=== PATIENT | male | born 1935 ===

== ENCOUNTER 2017-11-19 08:11 | Inpatient (IN) | payer MEDICARE, MEDICAID ==
[2017-11-19 08:25] VITALS: BMI 19.5
--- NOTE | 2017-11-19 08:32 | C.PDOC ---
History Of Present Illness 82 years old male with PMHx of HIV, Asthma, arthritis, and Pneumonia is BIBA to ED for complaints of shortness of breath associated with cough and chest congestion that began 2 days ago. Patient describes pain as tightness of chest. Patient also reports symptoms worsened today which prompted the ED visit. Denies fever or any other physical complaints. PMD: * Casey Grant Time Seen by Provider: 11/19/17 08:32 Chief Complaint (Nursing): Shortness Of Breath History Per: Patient History/Exam Limitations: no limitations Onset/Duration Of Symptoms: Hrs Current Symptoms Are (Timing): Still Present Quality: Tightness Current Respiratory Medications: See Home Med List Associated Symptoms: denies: Fever, Chills Recent travel outside of the [place]: No Past Medical History Reviewed: Historical Data, Nursing Documentation, Vital Signs Vital Signs: Last Vital Signs Temp 97.8 F 11/19/17 08:25 Pulse 92 H 11/19/17 08:25 Resp 26 H 11/19/17 08:25 BP 143/94 H 11/19/17 08:25 Pulse Ox 96 11/19/17 08:25 - Medical History PMH: Arthritis, Asthma, Emphysema, HIV, HTN (Denies), Pneumonia Surgical History: Endoscopy - [facility] Procedures REPLACE OF L KNEE JT WITH SYNTH SUB, CEMENT, OPEN APPROACH (09/13/17) Family History: States: Unknown Family Hx - Social History Hx Alcohol Use: No Hx Substance Use: No - Immunization History Hx Tetanus Toxoid Vaccination: No Hx Influenza Vaccination: No Hx Pneumococcal Vaccination: Yes Review Of Systems Except As Marked, All Systems Reviewed And Found Negative. Cardiovascular: Positive for: Other (Chest tightness and congestion ) Respiratory: Positive for: Cough, Shortness of Breath Physical Exam - Physical Exam Appears: Non-toxic, No Acute Distress Skin: Normal Color, Warm, Dry, No Rash Head: Atraumatic, Normacephalic Eye(s): bilateral: Normal Inspection, PERRL, EOMI Oral Mucosa: Moist Neck: Supple Chest: Symmetrical, No Tenderness Cardiovascular: Rhythm Regular Respiratory: No Decreased Breath Sounds, No Rales, No Rhonchi, No Wheezing Gastrointestinal/Abdominal: Bowel Sounds (Active), Soft, No Tenderness, No Distention Rectal: Heme Negative Extremity: Normal ROM, No Deformity Extremity: Bilateral: Atraumatic, Normal Color And Temperature, Normal ROM Neurological/Psych: Oriented x3, Normal Speech, Normal Cranial Nerves, Normal Motor, Normal Sensation Gait: Steady ED Course And Treatment - Laboratory Results Result Diagrams: 11/19/17 09:56 11/19/17 09:56 O2 Sat by Pulse Oximetry: 96 (RA) Pulse Ox Interpretation: Normal - Other Rad CXR X-Ray: Viewed By Me, Read By Radiologist Interpretation: Date of service: 11/19/2017. PROCEDURE: CHEST RADIOGRAPH, 1 VIEW. HISTORY: SOB. COMPARISON: None available. FINDINGS: LUNGS: Mild bibasilar atelectasis or scarring. PLEURA: No pneumothorax or pleural fluid seen. CARDIOVASCULAR: Heart size upper limits of normal. Aorta slightly ectatic and uncoiled. OSSEOUS STRUCTURES: Degenerative changes both shoulder girdles right greater than left. Multilevel degenerative spondylosis. VISUALIZED UPPER ABDOMEN: Normal. OTHER FINDINGS: Note made of multiple radiopaque densities seen scattered over the right lateral lower wm thorax and upper abdomen as well as possibly overlying the right paratracheal region and right base of neck or right facial soft tissues. Rule shrapnel on material. IMPRESSION: No active disease. Progress Note: Administered O2 via Nasal cannula. Ordered EKG, blood work, CXR, and urinalysis. Patient c/o difficulty urinating, bolanos ordered. Minimal amt of urine obtained, patient requested to remove Bolanos secondary to discomfort. Patient is not complaining of pressure in the pelvic area. Elevated Ddimer, VQ scan ordered and resulted with high probability for PE. Leucocytosis: broad spectrum antibioticss started. Rectal exam with heme neg brown stool. Heparin started. Case was d/w who accepted patient to [facility] for an admission. Disposition - Disposition Disposition: HOSPITALIZED Disposition Time: 17:27 Condition: FAIR - Clinical Impression Clinical Impression: Pulmonary embolism, Dyspnea, Leucocytosis - PA / VENDING MACHINE ATTENDANT / Resident Statement MD/DO has reviewed & agrees with the documentation as recorded. - Scribe Statement The provider has reviewed the documentation as recorded by the Lida Chu All medical record entries made by the Lida were at my direction and personally dictated by me. I have reviewed the chart and agree that the record accurately reflects my personal performance of the history, physical exam, medical decision making, and the department course for this patient. I have also personally directed, reviewed, and agree with the discharge instructions and disposition. Decision To Admit - Pt Status Changed To: Hospital Disposition Of: Inpatient - Admit Certification Admit to Inpatient:: After my assessment, the patient will require hospitalization for at least two midnights. This is because of the severity of symptoms shown, intensity of services needed, and/or the medical risk in this patient being treated as an outpatient. - InPatient: Physician Admission Certification: I certify that this patient requires 2 or more midnights of care for the following reason:: pt will need more than 2 days of hospitalization. - . Bed Request Type: Telemetry Admitting Physician: Kimberly Haines Patient Diagnosis: Pulmonary embolism, Dyspnea, Leucocytosis
[2017-11-19 10:03] LABS: BASO % 0.2 % (0.0-2.0); EOS % 0.1 % (0.0-4.0); HEMOGLOBIN 12.9 g/dL (12.0-18.0); LYMPH % 8.3 % (20.0-40.0); MEAN CELL VOLUME 94.3 fL (80.0-94.0); MEAN CORPUSCULAR HEMOGLOBIN 30.4 pg (27.0-31.0); MEAN CORPUSCULAR HGB CONC 32.2 g/dL (33.0-37.0); MEAN PLATELET VOLUME 8.4 fL (7.2-11.7); MONO # 1.3 K/uL (0.0-0.8); MONO % 5.4 % (0.0-10.0); NEUT # 20.5 K/uL (1.8-7.0); PLATELET COUNT 450 K/uL (130-400); RBC 4.25 Mil/uL (4.40-5.90); RED CELL DISTRIBUTION WIDTH 15.8 % (11.5-14.5); WHITE BLOOD COUNT 23.8 K/uL (4.8-10.8)
[2017-11-19 10:27] LABS: ALB/GLOB RATIO 1.1 (1.0-2.1); ALBUMIN 3.4 g/dL (3.5-5.0); CALCIUM 9.1 mg/dl (8.6-10.4)
[2017-11-19 10:31] LABS: INR 1.1; PROTHROMBIN TIME 11.6 SECONDS (9.7-12.2)
[2017-11-19 10:40] LABS: CK-MB 4.47 ng/mL (0.0-3.38); TROPONIN I 0.012 ng/mL (0.00-0.120)
[2017-11-19 10:41] LABS: ANISOCYTOSIS SLIGHT; BANDS 2 % (0-2); EOSINOPHIL 1 % (0-4); LYMPHOCYTE 9 % (20-40); MONOCYTE 6 % (0-10); NEUTROPHIL 82 % (50-75); TOTAL CELLS COUNTED 100
[2017-11-19 10:42] LABS: HYPOCHROMIC SLIGHT; POLYCHROMIC SLIGHT
[2017-11-19 10:43] LABS: PLATELET ESTIMATE SLIGHTLY INCREASED (NORMAL)
[2017-11-19 10:44] LABS: GIANT PLATELETS PRESENT; LARGE PLATELETS PRESENT
[2017-11-19] MEDS ORDERED: Sod Polystyrene Sulf 15 gm/60 ml Susp PO STA (10:46)
[2017-11-19 11:05] LABS: SQUAMOUS EPITHIAL < 1 /hpf (0-5); URINE BILIRUBIN NEGATIVE (NEGATIVE); URINE BLOOD 2+ (NEGATIVE); URINE CLARITY Hazy (Clear); URINE COLOR Amber (YELLOW); URINE GLUCOSE (UA) NORMAL (Normal); URINE HYALINE CAST >20 /lpf (0-2); URINE LEUKOCYTE ESTERASE NEG Leu/uL (Negative); URINE PROTEIN 1+ mg/dL (NEGATIVE); URINE UROBILINOGEN NORMAL mg/dL (0.2-1.0)
[2017-11-19] MEDS ORDERED: Lidocaine 2% Jelly (Uro-Jet) ONE (11:39)
[2017-11-19] MEDS ORDERED: Lidocaine 2% Jelly (Uro-Jet) TOP STA (11:39)
[2017-11-19] MEDS ORDERED: Sod Polystyrene Sulf 15 gm/60 ml Susp ONE (12:37)
[2017-11-19] MEDS ORDERED: Vancomycin 1 GM 1 GM/250 ML BAG IV STA (13:17)
[2017-11-19] MEDS ORDERED: Vancomycin 1 GM 1 GM/250 ML BAG IVPB ONE (13:29)
--- NOTE | 2017-11-19 14:43 | RAD ---
Date of service: 11/19/2017 PROCEDURE: CHEST RADIOGRAPH, 1 VIEW HISTORY: SOB COMPARISON: None available. FINDINGS: LUNGS: Mild bibasilar atelectasis or scarring PLEURA: No pneumothorax or pleural fluid seen. CARDIOVASCULAR: Heart size upper limits of normal. Aorta slightly ectatic and uncoiled. OSSEOUS STRUCTURES: Degenerative changes both shoulder girdles right greater than left. Multilevel degenerative spondylosis. VISUALIZED UPPER ABDOMEN: Normal. OTHER FINDINGS: Note made of multiple radiopaque densities seen scattered over the right lateral lower wm thorax and upper abdomen as well as possibly overlying the right paratracheal region and right base of neck or right facial soft tissues. Rule shrapnel on material. IMPRESSION: No active disease.
[2017-11-19] MEDS: Aztreonam 1 GM in Sodium Chloride 0.9% 100 ML IVPB SCH ×2 (16:16→22:00)
[2017-11-19] MEDS ORDERED: Heparin25000 units/250ml 1/2NS 25,000 UNITS/250 ML BAG IV ONE (17:15)
[2017-11-19] MEDS ORDERED: Iodixanol 320 MG/ML 100 ML BOTTLE IV ONE (20:38)
[2017-11-19 20:42] LABS: ARTERIAL BLOOD GAS HCO3 24.2 mmol/L (21-28); ARTERIAL BLOOD GAS HEMOGLOBIN 11.5 g/dL (11.7-17.4); ARTERIAL BLOOD GAS O2 SAT 96.8 % (95-98); ARTERIAL BLOOD GAS PCO2 41 mm/Hg (35-45); ARTERIAL BLOOD GAS PH 7.38 (7.35-7.45); ARTERIAL BLOOD GAS PO2 71 mm/Hg (80-100); ARTERIAL BLOOD GAS TCO2 25.6 mmol/L (22-28)
[2017-11-19] MEDS: Albuterol-Ipratrop 3 mg / 0.5 (3 ml) UD INH SCH (21:20)
[2017-11-19] MEDS: Acetylcysteine 20% Inhal Soln (4ml) PO SCH (21:54)
[2017-11-19] MEDS ORDERED: Lidocaine 2% Jelly (Uro-Jet) TOP ONE (22:00)
--- NOTE | 2017-11-19 22:11 | CP.PCM.PN ---
Subjective - Date & Time of Evaluation Date of Evaluation: 11/19/17 Time of Evaluation: 21:30 - Subjective Subjective: H&P dictated #[id number] Objective - Vital Signs/Intake and Output Vital Signs (last 24 hours): Temp Pulse Resp BP Pulse Ox 98.2 F 85 18 144/87 96 11/19/17 20:33 11/19/17 20:33 11/19/17 20:33 11/19/17 20:33 11/19/17 20:33 - Medications Medications: Current Medications Acetylcysteine (Acetylcysteine 20%) 4 ml PO Q12H MAXINE Last Admin: 11/19/17 21:54 Dose: 4 ml Albuterol/Ipratropium (Duoneb 3 Mg/0.5 Mg (3 Ml) Ud) 3 ml INH RQ6 MAXINE Last Admin: 11/19/17 21:20 Dose: Not Given Aztreonam 1 gm/ Sodium (Chloride) 100 mls @ 100 mls/hr IVPB Q8H [facility]; Protocol Last Admin: 11/19/17 22:00 Dose: 100 mls/hr Heparin Sodium/Sodium Chloride (Heparin 49141 Units/250ml 1/2 Normal Saline) 25,000 units in 250 mls @ 10.16 mls/hr IV .Q24H ONE; Protocol Stop: 11/20/17 17:14 Last Admin: 11/19/17 17:29 Dose: 10.16 mls/hr Montelukast Sodium (Singulair) 10 mg PO HS MAXINE Tamsulosin HCl (Flomax) 0.4 mg PO DAILY MAXINE - Labs Labs: 11/19/17 09:56 11/19/17 09:56 PT 11.6 SECONDS (9.7-12.2) 11/19/17 09:56 INR 1.1 11/19/17 09:56 APTT 32 SECONDS (21-34) 11/19/17 09:56
[2017-11-19 22:24] LABS: MYCOPLASMA PNEUMONIAE IGM NEGATIVE (NEGATIVE)
[2017-11-19] MEDS: Dextrose 5%/0.45% NS 1,000 ML IV SCH (23:00)
--- NOTE | 2017-11-19 23:13 | CP.PCM.PN ---
Subjective - Date & Time of Evaluation Date of Evaluation: 11/19/17 Time of Evaluation: 22:00 - Subjective Subjective: Pulmonary Consult, Covering Dr Begum The patient was Seen/interviewed and examined by me at the bedside, Medical records reviewed and Management issues were discussed and formulated with the house staff. Events reviewed 82 years old male with PMHx of HIV, Asthma, arthritis, Pneumonia and possible Pulmonary fibrosis and primary pulmonary hypertension Who was BIBA to ED for complaints of shortness of breath associated with cough and chest congestion that began 2 days ago. Patient describes pain as tightness of chest. Patient also reports symptoms worsened today which prompted the ED visit. Denies fever or any other physical complaints. 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 CARDIOVASCULAR: Heart size upper limits of normal. Aorta slightly ectatic and uncoiled. OSSEOUS STRUCTURES: Degenerative changes both shoulder girdles right greater than left. Multilevel degenerative spondylosis. VISUALIZED UPPER ABDOMEN: Normal. OTHER FINDINGS: Note made of multiple radiopaque densities seen scattered over the right lateral lower wm thorax and upper abdomen as well as possibly overlying the right paratracheal region and right base of neck or right facial soft tissues. Rule shrapnel on material. IMPRESSION: No active disease. Objective - Vital Signs/Intake and Output Vital Signs (last 24 hours): Temp Pulse Resp BP Pulse Ox 98.2 F 85 18 144/87 96 11/19/17 20:33 11/19/17 20:33 11/19/17 20:33 11/19/17 20:33 11/19/17 20:33 - Medications Medications: Current Medications Acetylcysteine (Acetylcysteine 20%) 4 ml PO Q12H MAXINE Last Admin: 11/19/17 21:54 Dose: 4 ml Albuterol/Ipratropium (Duoneb 3 Mg/0.5 Mg (3 Ml) Ud) 3 ml INH RQ6 MAXINE Last Admin: 11/19/17 21:20 Dose: Not Given Aztreonam 1 gm/ Sodium (Chloride) 100 mls @ 100 mls/hr IVPB Q8H [facility]; Protocol Last Admin: 11/19/17 22:00 Dose: 100 mls/hr Heparin Sodium/Sodium Chloride (Heparin 27255 Units/250ml 1/2 Normal Saline) 25,000 units in 250 mls @ 10.16 mls/hr IV .Q24H ONE; Protocol Stop: 11/20/17 17:14 Last Admin: 11/19/17 17:29 Dose: 10.16 mls/hr Dextrose/Sodium Chloride (Dextrose 5%/0.45% Ns 1000 Ml) 1,000 mls @ 75 mls/hr IV .[id number] [facility] Last Admin: 11/19/17 23:00 Dose: 75 mls/hr Montelukast Sodium (Singulair) 10 mg PO HS [facility] Tamsulosin HCl (Flomax) 0.4 mg PO DAILY [facility] - Labs Labs: 11/19/17 09:56 11/19/17 09:56 PT 11.6 SECONDS (9.7-12.2) 11/19/17 09:56 INR 1.1 11/19/17 09:56 APTT 32 SECONDS (21-34) 11/19/17 09:56 - Constitutional Appears: Well, Non-toxic, No Acute Distress - Head Exam Head Exam: ATRAUMATIC, NORMAL INSPECTION, NORMOCEPHALIC - Eye Exam Eye Exam: EOMI, PERRL. absent: Scleral icterus Pupil Exam: NORMAL ACCOMODATION, PERRL - ENT Exam ENT Exam: Mucous Membranes Moist, Normal Exam - Neck Exam Neck Exam: Full ROM, Normal Inspection. absent: Tenderness, Thyromegaly - Respiratory Exam Respiratory Exam: Decreased Breath Sounds, Rhonchi, NORMAL BREATHING PATTERN. absent: Accessory Muscle Use, Chest Wall Tenderness, Rales, Wheezes - Cardiovascular Exam Cardiovascular Exam: REGULAR RHYTHM, +S1, +S2. absent: Bradycardia, Tachycardia, Diastolic murmur - GI/Abdominal Exam GI & Abdominal Exam: Distended, Soft, Normal Bowel Sounds. absent: Tenderness - Extremities Exam Extremities Exam: Full ROM, Normal Capillary Refill, Normal Inspection. absent: Calf Tenderness, Joint Swelling, Pedal Edema - Neurological Exam Neurological Exam: Alert, Awake, CN II-XII Intact, Oriented x3. absent: Altered, Motor Sensory Deficit Assessment and Plan (1) Primary pulmonary hypertension Status: Acute (2) Community acquired pneumonia Status: Acute (3) Pulmonary hypertension Status: Chronic (4) Bronchiectasis Status: Acute (5) HIV (human immunodeficiency virus infection) Status: Chronic (6) Bronchiectasis Status: Acute (7) Pulmonary embolism Status: Acute
[2017-11-20 00:12] LABS: INR 1.2; PROTHROMBIN TIME 12.7 SECONDS (9.7-12.2)
[2017-11-20 00:22] LABS: SQUAMOUS EPITHIAL 4 /hpf (0-5); URINE BILIRUBIN NEGATIVE (NEGATIVE); URINE BLOOD 3+ (NEGATIVE); URINE COLOR Amber (YELLOW); URINE GLUCOSE (UA) NORMAL (Normal); URINE LEUKOCYTE ESTERASE TRACE Leu/uL (Negative); URINE PROTEIN 2+ mg/dL (NEGATIVE); URINE UROBILINOGEN NORMAL mg/dL (0.2-1.0)
[2017-11-20 00:25] LABS: URINE CLARITY Turbid (Clear)
--- NOTE | 2017-11-20 01:30 | HP ---
CHIEF COMPLAINT: Progressive worsening of abdominal pain, did not move his bowels for the past 3 days and shortness of breath associated with dry cough for the last 3 days. HISTORY OF PRESENT ILLNESS: is an 82-year-old male with past medical history of HIV, on antiretroviral therapy, COPD, osteoarthritis, primary pulmonary hypertension, idiopathic pulmonary fibrosis, history of prostate CA, nodular prostate, history of colonic polyp, bilateral severe osteoarthritis, and degenerative joint disease of the lumbar spine who underwent total knee replacement recently in 09/[address] Leon at [facility]. He has been following up with Dr. Casey Castellon as primary care physician, and Dr. Lockwood as urologist. He came into the emergency room, brought in by EMS with complaints of cough, shortness of breath on exertion, progressively getting worse. Shortness of breath is worse on walking or lying flat. He denies any chest pain, is complaining of chest congestion, also complaining of abdominal distention and has not been able to urinate as before with decreased urine output. He has not been eating well. He had his bowel movement about 4 days ago. Denied any fever. Denied any dizziness. Denied any chest pain. He is scared to eat because he also has abdominal distention. Denies any neurologic symptoms. Denies any joint swelling or leg pain. Denies any other neurologic symptoms. PAST MEDICAL HISTORY: As described is HIV positive, osteoarthritis, pulmonary hypertension, idiopathic pulmonary fibrosis, colonic polyps, prostate CA, status post seed implant many years ago. PAST SURGICAL HISTORY: Underwent total knee replacement in 09/2017, prostate seed implants many years ago, testicular surgery about 4 to 5 years ago, varicose vein surgery many years ago. FAMILY HISTORY: Nothing contributory to the present illness. PERSONAL HISTORY: He is but lives in [place]. He lives alone here, having one daughter. His next of kin is [id number]. 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 He is using a cane. SOCIAL HISTORY: He is an ex-smoker, quit smoking 40 years ago. Denies any alcohol or drug abuse. ALLERGIES: NO KNOWN DRUG ALLERGIES. MEDICATIONS: Include Percocet as needed, Norvir 100 mg daily, Ativan 25 mg daily, Singulair 10 mg daily, Advair Diskus 1 puff every 12 hours, Lovenox 40 mg subcu daily, Truvada, Tivicay, Colace, Celexa 20 mg daily, Celebrex 100 mg every 12 hours, Reyataz 300 mg, Combivent, Epzicom. REVIEW OF SYSTEMS: As described in history of present illness. All other systems reviewed and were found to be negative. PHYSICAL EXAMINATION: GENERAL: Elderly male, lying in bed, in no acute distress. VITAL SIGNS: Blood pressure 141/78, pulse 77, respirations 20, temperature 98.8 degrees Fahrenheit. O2 sat is 96% on nasal cannula. HEENT: Pupils equal, round, and reactive to light and accommodation. Extraocular muscles are intact. No icterus. No pallor. No oral thrush. Positive pharyngeal congestion. NECK: Supple. No JVD. LUNGS: Bilateral vesicular breath sounds. Basal rhonchi heard. No wheezing. CVS: S1, S2 present. Regular. ABDOMEN: Soft, distended. Bowel sounds present. Bladder distended up to the umbilicus. A dullness in the suprapubic region noted. APPLICATION SOFTWARE ENGINEER: Alert, awake, and oriented x3. No focal deficits noted. EXTREMITIES: No edema. Palpable peripheral pulses. LABORATORY DATA: Labs done from the ED, WBC 23.8, hemoglobin 12.9, hematocrit 40.1, platelets 450. PT 11.6, INR 1.1, PTT 32. D-dimer 1023. ABG on room air, pH 7.38, pO2 of 71, pCO2 of 41. O2 sat is 93%. Sodium 137, potassium 5.5, chloride 100, bicarb 26, BUN 44, creatinine 1.4, glucose 140, lactic acid 1.4, calcium 9.1, total bilirubin 0.4, AST 27, ALT 15, alkaline phosphatase 153, LDH 505, total CPK 59, troponin 0.0120, pro-RECREATION DIRECTOR 394. Total protein 6.5, albumin 3.4. UA specific gravity 1.025, pH 5, blood 2+, rbc 28. Blood cultures and urine cultures sent from the emergency room. EKG consistent with normal sinus rhythm at 88 beats per minute, right bundle branch block. Chest x-ray consistent with multiple radiopaque densities seen scattered over the right lateral lower hemithorax and upper abdomen as well as possibly overlying the right paratracheal region, right base of neck or right facial soft tissues material. Lung scan done from the emergency room, preliminary report, high probability for PE. ASSESSMENT AND PLAN: An elderly male with history of human immunodeficiency virus positive, pulmonary hypertension, idiopathic pulmonary fibrosis, colonic polyp, prostate cancer, status post seed implant, nodular prostate, admitted for 3 to 4-day history of decreased urine output, abdominal distention, constipation for 4 days, and shortness of breath on exertion, associated with a dry cough. In the emergency department, the patient was found to be having elevated white blood cell count and elevated D-dimers, elevated potassium, and elevated BUN and creatinine. The patient is being admitted for further management, and as the patient's creatinine was high in the emergency department, V/Q scan was done which was reported as high probability to the emergency department, and the patient was started on heparin, and the patient will be admitted. 1. Shortness of breath associated with dry cough and elevated D-dimers. V/Q scan with high probability, rule out pulmonary embolism. 2. Decreased urine output secondary to prostate bladder outlet obstruction, constipation. 3. Elevated BUN and creatinine, probably secondary to dehydration and bladder outlet obstruction, elevated white blood cell count, questionable etiology, rule out intraabdominal etiology. Followup with chest CT, rule out any infiltrate. 4. Hyperkalemia. 5. History of human immunodeficiency virus positive. 6. History of osteoarthritis. 7. History of primary pulmonary hypertension. 8. History of idiopathic pulmonary fibrosis. 9. History of colonic polyps, status post colonoscopy last year. 10. History of prostate cancer. PLAN: The patient has been started on heparin drip. We will continue with heparin drip. Follow the heparin protocol. Serial CBCs, EKGs plus CT angio of chest for definitive diagnosis. We will give nebulizer treatment. Continue with Singulair. We will do hypercoagulable workup and malignancy workup to rule out occult malignancy. We will check ultrasound of bladder and prostate. We will obtain pulmonary evaluation, hematology evaluation. We will obtain urology evaluation. We will place Dhaliwal catheter, give IV fluids with D5 half normal saline. We will check echocardiogram. A dose of Kayexalate was given in the emergency room. We will repeat labs in a.m. We will give one dose of lactulose. We will check lower extremity Dopplers to rule out DVT. We will restart his antiretroviral therapy. We will obtain ID evaluation with Dr. Fajardo. We will add further recommendations as his clinical course progresses. Kimberly Haines MD
[2017-11-20] MEDS: Albuterol-Ipratrop 3 mg / 0.5 (3 ml) UD INH SCH ×3 (01:43→20:41)
[2017-11-20] MEDS: Aztreonam 1 GM in Sodium Chloride 0.9% 100 ML IVPB SCH ×3 (05:57→22:09)
[2017-11-20 08:00] LABS: BASO % 0.1 % (0.0-2.0); HEMOGLOBIN 11.7 g/dL (12.0-18.0); LYMPH # 2.6 K/uL (1.0-4.3); MEAN CELL VOLUME 94.2 fL (80.0-94.0); MEAN CORPUSCULAR HEMOGLOBIN 30.6 pg (27.0-31.0); MEAN CORPUSCULAR HGB CONC 32.5 g/dL (33.0-37.0); MEAN PLATELET VOLUME 8.1 fL (7.2-11.7); MONO # 1.9 K/uL (0.0-0.8); MONO % 6.6 % (0.0-10.0); NEUT % 84.3 % (50.0-75.0); PLATELET COUNT 460 K/uL (130-400); RBC 3.83 Mil/uL (4.40-5.90); RED CELL DISTRIBUTION WIDTH 15.3 % (11.5-14.5); WHITE BLOOD COUNT 28.5 K/uL (4.8-10.8)
[2017-11-20 08:21] LABS: ALB/GLOB RATIO 1.1 (1.0-2.1); ALBUMIN 3.2 g/dL (3.5-5.0); CALCIUM 8.7 mg/dl (8.6-10.4)
[2017-11-20] MEDS ORDERED: Azithromycin 500 MG in Sodium Chloride 0.9% 250 ML IVPB STA (08:58)
[2017-11-20] MEDS ORDERED: Piperacillin/Tazobact 3.375 GM in Sodium Chloride 100 ML IVPB SCH (09:00)
[2017-11-20 10:35] LABS: BANDS 4 % (0-2); LYMPHOCYTE 7 % (20-40); MONOCYTE 7 % (0-10); NEUTROPHIL 82 % (50-75); TOTAL CELLS COUNTED 100
[2017-11-20 10:36] LABS: ANISOCYTOSIS SLIGHT; HYPOCHROMIC SLIGHT; PLATELET ESTIMATE INCREASED (NORMAL); POLYCHROMIC SLIGHT
[2017-11-20 10:37] LABS: GIANT PLATELETS PRESENT; LARGE PLATELETS PRESENT
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
[2017-11-20] MEDS: Piperacillin/Tazobact 3.375 GM in Sodium Chloride 100 ML IVPB SCH ×2 (11:29→18:23)
--- NOTE | 2017-11-20 11:52 | CP.PCM.PN ---
Subjective - Date & Time of Evaluation Date of Evaluation: 11/20/17 Time of Evaluation: 11:52 - Subjective Subjective: Progress note dictated #[id number] Objective - Vital Signs/Intake and Output Vital Signs (last 24 hours): Temp Pulse Resp BP Pulse Ox 97.4 F L 86 20 144/88 97 11/20/17 07:37 11/20/17 07:37 11/20/17 07:37 11/20/17 07:37 11/20/17 07:37 Intake and Output: 11/20/17 11/20/17 06:59 18:59 Output Total 100 Balance -100 - Medications Medications: Current Medications Acetylcysteine (Acetylcysteine 20%) 4 ml PO Q12H MAXINE Last Admin: 11/19/17 21:54 Dose: 4 ml Albuterol/Ipratropium (Duoneb 3 Mg/0.5 Mg (3 Ml) Ud) 3 ml INH RQ6 MAXINE Last Admin: 11/20/17 08:32 Dose: 3 ml Heparin Sodium (Porcine) (Heparin) 5,000 units SC Q8 MAXINE Aztreonam 1 gm/ Sodium (Chloride) 100 mls @ 100 mls/hr IVPB Q8H [facility]; Protocol Last Admin: 11/20/17 05:57 Dose: 100 mls/hr Dextrose/Sodium Chloride (Dextrose 5%/0.45% Ns 1000 Ml) 1,000 mls @ 75 mls/hr IV .[id number] [facility]INE Last Admin: 11/19/17 23:00 Dose: 75 mls/hr Piperacillin Sod/Tazobactam (Sod 3.375 gm/ Sodium Chloride) 100 mls @ 200 mls/hr IVPB Q8H [facility]; Protocol Last Admin: 11/20/17 11:29 Dose: 200 mls/hr Montelukast Sodium (Singulair) 10 mg PO HS [facility] Last Admin: 11/20/17 09:50 Dose: 10 mg Morphine Sulfate (Morphine) 1 mg IVP Q6 PRN PRN Reason: Pain, severe (8-10) Tamsulosin HCl (Flomax) 0.4 mg PO DAILY [facility] Last Admin: 11/20/17 09:50 Dose: 0.4 mg - Labs Labs: 11/20/17 07:48 11/20/17 07:48 PT 12.7 SECONDS (9.7-12.2) H 11/19/17 23:59 INR 1.2 11/19/17 23:59 APTT 53 SECONDS (21-34) H D 11/20/17 07:48
[2017-11-20] MEDS: Dextrose 5%/0.45% NS 1,000 ML IV SCH ×2 (12:29→22:48)
--- NOTE | 2017-11-20 12:39 | CP.PCM.CON ---
History of Present Illness - History of Present Illness History of Present Illness: CC: GI consult requested for cholelithiasis HPI: 82 year old man with severe pulmonary disease, HIV positive, admitted for pulmonary symptoms. During the course of his evaluation he was found to have large ascites with nodular liver, gallbladder stones, dilated CBD with appearance of stone in CBD. Patient denies abdominal pain, fevers, chills. He does have marked leukocytosis. Main complaint is dyspnea. CTA and VQ scan are consistent with pulmonary embolus. Patient had colonoscopy and EGD in 2016- colon poluyps removed, and atrohic gastritis. Review of Systems - Constitutional Constitutional: As Per HPI - EENT Eyes: absent: Change in Vision Ears: absent: Ear Discharge Nose/Mouth/Throat: absent: Epistaxis - Cardiovascular Cardiovascular: Dyspnea, Dyspnea on Exertion. absent: Chest Pain - Respiratory Respiratory: Cough, Dyspnea. absent: Hemoptysis - Gastrointestinal Gastrointestinal: Abdominal Pain, Bloating, Constipation. absent: Dysphagia, Loose Stools, Melena, Nausea - Genitourinary Genitourinary: Difficulty Urinating - Musculoskeletal Musculoskeletal: Back Pain - Integumentary Integumentary: absent: Bleeding Lesions, Jaundice - Neurological Neurological: Weakness - Psychiatric Psychiatric: absent: Confusion, Depression - Hematologic/Lymphatic Hematologic: absent: Easy Bleeding Past Patient History - Past Medical History & Family History Past Medical History?: Yes - Past Social History Smoking Status: Current Some Days Smoker - CARDIAC Hx Cardia Arrhythmia: No Hx Hypertension: Yes (Denies) Hx Pacemaker: No - PULMONARY Hx Asthma: Yes Hx Emphysema: Yes Hx Pneumonia: Yes - NEUROLOGICAL Hx Neurological Disorder: No - HEENT Hx HEENT Problems: No Hx Cataracts: Yes - RENAL Hx Chronic Kidney Disease: No - ENDOCRINE/METABOLIC Hx Endocrine Disorders: No - HEMATOLOGICAL/ONCOLOGICAL Hx Human Immunodeficiency Virus (HIV): Yes - INTEGUMENTARY Hx Dermatological Problems: No - MUSCULOSKELETAL/RHEUMATOLOGICAL Hx Arthritis: Yes Hx Falls: Yes - GASTROINTESTINAL Hx Gastrointestinal Disorders: Yes Hx Bowel Surgery: Yes (Hernia) Hx Colostomy: Yes Hx Constipation: Yes Hx Gastritis: Yes Hx Liver Failure: No - GENITOURINARY/GYNECOLOGICAL Hx Genitourinary Disorders: Yes Hx Prostate Problems: Yes - PSYCHIATRIC Hx Substance Use: No - SURGICAL HISTORY Hx Surgeries: Yes Hx Cataract Extraction: Yes Hx Eye Surgery: Yes Hx Herniorrhaphy: Yes Hx Orthopedic Surgery: Yes (Left knee) Other/Comment: UNKNOWN ABDOMINAL SURGERY - ANESTHESIA Hx Anesthesia: Yes Hx Anesthesia Reactions: No Hx Malignant Hyperthermia: No Meds Allergies/Adverse Reactions: Allergies Allergy/AdvReac Type Severity Reaction Status Date / Time No Known Allergies Allergy Verified 11/19/17 08:24 - Medications Medications: Current Medications Acetylcysteine (Acetylcysteine 20%) 4 ml PO Q12H [facility] Last Admin: 11/19/17 21:54 Dose: 4 ml Albuterol/Ipratropium (Duoneb 3 Mg/0.5 Mg (3 Ml) Ud) 3 ml INH RQ6 [facility] Last Admin: 11/20/17 08:32 Dose: 3 ml Heparin Sodium (Porcine) (Heparin) 5,000 units SC Q8 MAXINE Aztreonam 1 gm/ Sodium (Chloride) 100 mls @ 100 mls/hr IVPB Q8H [facility]; Protocol Last Admin: 11/20/17 05:57 Dose: 100 mls/hr Dextrose/Sodium Chloride (Dextrose 5%/0.45% Ns 1000 Ml) 1,000 mls @ 75 mls/hr IV .[id number] [facility] Last Admin: 11/19/17 23:00 Dose: 75 mls/hr Piperacillin Sod/Tazobactam (Sod 3.375 gm/ Sodium Chloride) 100 mls @ 200 mls/hr IVPB Q8H [facility]; Protocol Last Admin: 11/20/17 11:29 Dose: 200 mls/hr Montelukast Sodium (Singulair) 10 mg PO HS [facility] Last Admin: 11/20/17 09:50 Dose: 10 mg Morphine Sulfate (Morphine) 1 mg IVP Q6 PRN PRN Reason: Pain, severe (8-10) Tamsulosin HCl (Flomax) 0.4 mg PO DAILY [facility] Last Admin: 11/20/17 09:50 Dose: 0.4 mg Physical Exam - Constitutional Appears: Cachectic, Chronically Ill - Head Exam Additional comments: bitemporal wasting - Eye Exam Eye Exam: absent: Scleral icterus - Neck Exam Neck exam: Positive for: Normal Inspection - Respiratory Exam Respiratory Exam: Prolonged Expiratory Phase, Wheezes - Cardiovascular Exam Cardiovascular Exam: REGULAR RHYTHM - GI/Abdominal Exam GI & Abdominal Exam: Distended, Soft. absent: Guarding, Mass, Rebound, Tend erness - Rectal Exam Rectal Exam: Deferred - Extremities Exam Extremities exam: Positive for: normal inspection - Back Exam Back exam: NORMAL INSPECTION - Neurological Exam Neurological exam: Alert, Oriented x3 - Psychiatric Exam Psychiatric exam: Normal Affect, Normal Mood - Skin Skin Exam: Normal Color Results - Vital Signs Recent Vital Signs: Last Vital Signs Temp 97.4 F L 11/20/17 07:37 Pulse 86 11/20/17 07:37 Resp 20 11/20/17 07:37 BP 144/88 11/20/17 07:37 Pulse Ox 97 11/20/17 07:37 - Labs Result Diagrams: 11/20/17 07:48 11/20/17 07:48 Labs: Laboratory Results - last 24 hr 11/19/17 11/19/17 11/19/17 09:56 20:37 21:46 WBC RBC Hgb Hct MCV MCH MCHC RDW Plt Count MPV Neut % (Auto) Lymph % (Auto) [place] % (Auto) Eos % (Auto) Baso % (Auto) Neut # (Auto) Lymph # (Auto) [place] # (Auto) Eos # (Auto) Baso # (Auto) Neutrophils % (Manual) Band Neutrophils % Lymphocytes % (Manual) Monocytes % (Manual) Platelet Estimate Large Platelets Giant Platelets Polychromasia Hypochromasia (manual) Anisocytosis (manual) ESR PT INR APTT Puncture Site Lb pCO2 41 pO2 71 L HCO3 24.2 ABG pH 7.38 ABG Total CO2 25.6 ABG O2 Saturation 96.8 ABG Base Excess -0.8 ABG Hemoglobin 11.5 L ABG Carboxyhemoglobin 2.3 H POC ABG HHb (Measured) 3.1 ABG Methemoglobin 1.2 Channing Test Na A-a O2 Difference 27.0 Respiratory Index 0.4 Hgb O2 Saturation 93.4 L FiO2 21.0 Sodium 137 Potassium 5.5 H Chloride 100 Carbon Dioxide 26 Anion Gap 18 BUN 44 H Creatinine 1.4 Est GFR ( Amer) 59 Est GFR (Non-Af Amer) 48 Random Glucose 140 H Calcium 9.1 Phosphorus Magnesium Total Bilirubin 0.4 AST 27 ALT 15 L Alkaline Phosphatase 153 H Lactate Dehydrogenase 505 Total Creatine Kinase 59 CK-MB (Mass) 4.47 H Troponin I 0.0120 C-Reactive Protein NT-Pro-B Natriuret Pep 394 Total Protein 6.5 Albumin 3.4 L Globulin 3.1 Albumin/Globulin Ratio 1.1 Triglycerides Cholesterol LDL Cholesterol Direct HDL Cholesterol Alpha Fetoprotein 1.7 Carcinoembryonic Ag CA 19-9 Antigen Procalcitonin TSH 3rd Generation Urine Color Urine Clarity Urine pH Ur Specific [place] Urine Protein Urine Glucose (UA) Urine Ketones Urine Blood Urine Nitrate Urine Bilirubin Urine Urobilinogen Ur Leukocyte Esterase Urine WBC (Auto) Urine RBC (Auto) Ur Squamous Epith Cells Mycoplasma pneumon IgM 11/19/17 11/19/17 11/19/17 21:46 21:46 21:46 WBC RBC Hgb Hct MCV MCH MCHC RDW Plt Count MPV Neut % (Auto) Lymph % (Auto) [place] % (Auto) Eos % (Auto) Baso % (Auto) Neut # (Auto) Lymph # (Auto) [place] # (Auto) Eos # (Auto) Baso # (Auto) Neutrophils % (Manual) Band Neutrophils % Lymphocytes % (Manual) Monocytes % (Manual) Platelet Estimate Large Platelets Giant Platelets Polychromasia Hypochromasia (manual) Anisocytosis (manual) ESR 21 H PT INR APTT Puncture Site pCO2 pO2 HCO3 ABG pH ABG Total CO2 ABG O2 Saturation ABG Base Excess ABG Hemoglobin ABG Carboxyhemoglobin POC ABG HHb (Measured) ABG Methemoglobin Channing Test A-a O2 Difference Respiratory Index Hgb O2 Saturation FiO2 Sodium Potassium Chloride Carbon Dioxide Anion Gap BUN Creatinine Est GFR ( Amer) Est GFR (Non-Af Amer) Random Glucose Calcium Phosphorus Magnesium Total Bilirubin AST ALT Alkaline Phosphatase Lactate Dehydrogenase Total Creatine Kinase CK-MB (Mass) Troponin I C-Reactive Protein 56.70 H NT-Pro-B Natriuret Pep Total Protein Albumin Globulin Albumin/Globulin Ratio Triglycerides Cholesterol LDL Cholesterol Direct HDL Cholesterol Alpha Fetoprotein Carcinoembryonic Ag 0.9 CA 19-9 Antigen < 1.4 Procalcitonin TSH 3rd Generation Urine Color Urine Clarity Urine pH Ur Specific [place] Urine Protein Urine Glucose (UA) Urine Ketones Urine Blood Urine Nitrate Urine Bilirubin Urine Urobilinogen Ur Leukocyte Esterase Urine WBC (Auto) Urine RBC (Auto) Ur Squamous Epith Cells Mycoplasma pneumon IgM Negative 11/19/17 11/19/17 11/19/17 21:46 23:59 23:59 WBC RBC Hgb Hct MCV MCH MCHC RDW Plt Count MPV Neut % (Auto) Lymph % (Auto) [place] % (Auto) Eos % (Auto) Baso % (Auto) Neut # (Auto) Lymph # (Auto) [place] # (Auto) Eos # (Auto) Baso # (Auto) Neutrophils % (Manual) Band Neutrophils % Lymphocytes % (Manual) Monocytes % (Manual) Platelet Estimate Large Platelets Giant Platelets Polychromasia Hypochromasia (manual) Anisocytosis (manual) ESR PT 12.7 H INR 1.2 APTT 48 H D Puncture Site pCO2 pO2 HCO3 ABG pH ABG Total CO2 ABG O2 Saturation ABG Base Excess ABG Hemoglobin ABG Carboxyhemoglobin POC ABG HHb (Measured) ABG Methemoglobin Channing Test A-a O2 Difference Respiratory Index Hgb O2 Saturation FiO2 Sodium Potassium Chloride Carbon Dioxide Anion Gap BUN Creatinine Est GFR ( Amer) Est GFR (Non-Af Amer) Random Glucose Calcium Phosphorus Magnesium Total Bilirubin AST ALT Alkaline Phosphatase Lactate Dehydrogenase Total Creatine Kinase CK-MB (Mass) Troponin I C-Reactive Protein NT-Pro-B Natriuret Pep Total Protein Albumin Globulin Albumin/Globulin Ratio Triglycerides Cholesterol LDL Cholesterol Direct HDL Cholesterol Alpha Fetoprotein Carcinoembryonic Ag CA 19-9 Antigen Procalcitonin 0.46 TSH 3rd Generation Urine Color [place] Urine Clarity Turbid Urine pH 5.0 Ur Specific [place] 1.057 H Urine Protein 2+ H Urine Glucose (UA) Normal Urine Ketones Negative Urine Blood 3+ H Urine Nitrate Negative Urine Bilirubin Negative Urine Urobilinogen Normal Ur Leukocyte Esterase Trace Urine WBC (Auto) 94 H Urine RBC (Auto) 1044 H Ur Squamous Epith Cells 4 Mycoplasma pneumon IgM 11/20/17 11/20/17 11/20/17 07:48 07:48 07:48 WBC 28.5 H RBC 3.83 L Hgb 11.7 L Hct 36.1 MCV 94.2 H MCH 30.6 MCHC 32.5 L RDW 15.3 H Plt Count 460 H MPV 8.1 Neut % (Auto) 84.3 H Lymph % (Auto) 9.0 L [place] % (Auto) 6.6 Eos % (Auto) 0.0 Baso % (Auto) 0.1 Neut # (Auto) 24.0 H Lymph # (Auto) 2.6 [place] # (Auto) 1.9 H Eos # (Auto) 0.0 Baso # (Auto) 0.0 Neutrophils % (Manual) 82 H Band Neutrophils % 4 H Lymphocytes % (Manual) 7 L Monocytes % (Manual) 7 Platelet Estimate Increased H Large Platelets Present Giant Platelets Present Polychromasia Slight Hypochromasia (manual) Slight Anisocytosis (manual) Slight ESR PT INR APTT 53 H D Puncture Site pCO2 pO2 HCO3 ABG pH ABG Total CO2 ABG O2 Saturation ABG Base Excess ABG Hemoglobin ABG Carboxyhemoglobin POC ABG HHb (Measured) ABG Methemoglobin Channing Test A-a O2 Difference Respiratory Index Hgb O2 Saturation FiO2 Sodium 140 Potassium 4.5 Chloride 102 Carbon Dioxide 28 Anion Gap 14 BUN 48 H Creatinine 1.7 H Est GFR ( Amer) 47 Est GFR (Non-Af Amer) 39 Random Glucose 136 H Calcium 8.7 Phosphorus 5.1 H Magnesium 2.4 H Total Bilirubin 0.2 AST 32 ALT 27 Alkaline Phosphatase 139 H Lactate Dehydrogenase Total Creatine Kinase CK-MB (Mass) Troponin I C-Reactive Protein NT-Pro-B Natriuret Pep Total Protein 6.1 L Albumin 3.2 L Globulin 2.9 Albumin/Globulin Ratio 1.1 Triglycerides 98 Cholesterol 129 LDL Cholesterol Direct 61 HDL Cholesterol 44 Alpha Fetoprotein Carcinoembryonic Ag CA 19-9 Antigen Procalcitonin TSH 3rd Generation 6.35 H Urine Color Urine Clarity Urine pH Ur Specific [place] Urine Protein Urine Glucose (UA) Urine Ketones Urine Blood Urine Nitrate Urine Bilirubin Urine Urobilinogen Ur Leukocyte Esterase Urine WBC (Auto) Urine RBC (Auto) Ur Squamous Epith Cells Mycoplasma pneumon IgM Assessment & Plan (1) Ascites Assessment and Plan: New onset. Unclear etiology. ? Cirrhosis Rec: Paracentesis. Lab Workup for causes of chronic liver disease Status: Acute (2) Dyspnea Status: Acute (3) Pulmonary embolism Assessment and Plan: managed by medical team D/W primary attending- pt has extensive pulmonary fibrosis Status: Acute (4) HIV (human immunodeficiency virus infection) Assessment and Plan: managed chronically by Dr Hicks. On numerous meds at home Status: Chronic (5) Choledocholithiasis Assessment and Plan: Sono suspicious for CBD stone. This may be chronic and therefore well compensated. Liver enzymes and alk phos levels near normal. No clinical evidence of cholangitis. Patient in respiratory distress- not a good candidate for invasive GI procedures/ ERCP. Will order MRCP. Continue antibiotics, monitor labs. Status: Acute - Date & Time Date: 11/20/17 Time: 12:48
--- NOTE | 2017-11-20 13:21 | CP.PCM.PN ---
Subjective - Date & Time of Evaluation Date of Evaluation: 11/20/17 Time of Evaluation: 13:19 - Subjective Subjective: Pulmonary Consult, Covering Dr Begum The patient was Seen/interviewed and examined by me at the bedside, Medical records reviewed and Management issues were discussed and formulated with the house staff. Events reviewed 82 years old male with PMHx of HIV, Asthma, arthritis, Pneumonia and Pulmonary fibrosis Who was BIBA to ED for complaints of shortness of breath associated with cough and chest congestion that began 2 days ago. Patient describes pain as tightness of chest. Patient also reports symptoms worsened today which prompted the ED visit. Denies fever or any other physical complaints. Elevated D dimer, started on Heparn drip Patient comfortable, NAD Afebrile Adequate saturation 98% on RA No chest pain or cough Less Dyspnea on exertion CT angiogram was negative for acut Acute PE Heparn drip switched to SQ Heparn q 8H 11/19/2017: CT Chest with contrast (Pulmonary Angiogram) IMPRESSION: No evidence of acute central pulmonary embolus. Dilatation of the pulmonary trunk; rule out underlying pulmonary arterial hypertension. Moderate localized cylindrical bronchiectatic changes are present both lung bases.. There also areas of scarring changes in both lung bases and lingular/middle lobe regions. Scarring also seen in the anterior aspect of the right upper lobe. Mild biapical pleural thickening and minimal adjacent parenchymal scarring. Additionally, there also appears to be mild paraseptal emphysematous changes Moderate size hiatal hernia. Findings consistent with hepatic cirrhosis with large amount of upper abdominal ascites and infiltration changes within the visualized mesenteric fat. Objective - Vital Signs/Intake and Output Vital Signs (last 24 hours): Temp Pulse Resp BP Pulse Ox 97.4 F L 86 20 144/88 97 11/20/17 07:37 11/20/17 07:37 11/20/17 07:37 11/20/17 07:37 11/20/17 07:37 Intake and Output: 11/20/17 11/20/17 06:59 18:59 Output Total 100 Balance -100 - Medications Medications: Current Medications Acetylcysteine (Acetylcysteine 20%) 4 ml PO Q12H [facility] Last Admin: 11/19/17 21:54 Dose: 4 ml Albuterol/Ipratropium (Duoneb 3 Mg/0.5 Mg (3 Ml) Ud) 3 ml INH RQ6 MAXINE Last Admin: 11/20/17 08:32 Dose: 3 ml Heparin Sodium (Porcine) (Heparin) 5,000 units SC Q8 MAXINE Aztreonam 1 gm/ Sodium (Chloride) 100 mls @ 100 mls/hr IVPB Q8H [facility]; Protocol Last Admin: 11/20/17 05:57 Dose: 100 mls/hr Dextrose/Sodium Chloride (Dextrose 5%/0.45% Ns 1000 Ml) 1,000 mls @ 75 mls/hr IV .[id number] [facility] Last Admin: 11/19/17 23:00 Dose: 75 mls/hr Piperacillin Sod/Tazobactam (Sod 3.375 gm/ Sodium Chloride) 100 mls @ 200 mls/hr IVPB Q8H [facility]; Protocol Last Admin: 11/20/17 11:29 Dose: 200 mls/hr Montelukast Sodium (Singulair) 10 mg PO HS [facility] Last Admin: 11/20/17 09:50 Dose: 10 mg Morphine Sulfate (Morphine) 1 mg IVP Q6 PRN PRN Reason: Pain, severe (8-10) Tamsulosin HCl (Flomax) 0.4 mg PO DAILY [facility] Last Admin: 11/20/17 09:50 Dose: 0.4 mg - Labs Labs: 11/20/17 07:48 11/20/17 07:48 PT 12.7 SECONDS (9.7-12.2) H 11/19/17 23:59 INR 1.2 11/19/17 23:59 APTT 53 SECONDS (21-34) H D 11/20/17 07:48 - Head Exam Head Exam: ATRAUMATIC, NORMAL INSPECTION, NORMOCEPHALIC - Eye Exam Eye Exam: EOMI - ENT Exam ENT Exam: Mucous Membranes Moist, Normal Exam - Neck Exam Neck Exam: Normal Inspection - Respiratory Exam Respiratory Exam: Decreased Breath Sounds, Rhonchi, NORMAL BREATHING PATTERN. a bsent: Accessory Muscle Use, Chest Wall Tenderness, Clear to Ausculation Bilateral, Prolonged Expiratory Phase, Rales, Wheezes, Respiratory Distress, Stridor - Cardiovascular Exam Cardiovascular Exam: REGULAR RHYTHM, RRR, +S1, +S2. absent: Bradycardia, Tachycardia, JVD - GI/Abdominal Exam GI & Abdominal Exam: Distended, Soft, Normal Bowel Sounds. absent: Firm, Guarding, Tenderness - Back Exam Back Exam: absent: CVA tenderness (L), CVA tenderness (R) - Neurological Exam Neurological Exam: Alert, Awake, CN II-XII Intact, Oriented x3. absent: Altered, Motor Sensory Deficit Assessment and Plan (1) Community acquired pneumonia Assessment & Plan: Continue current antibiotics Aztreonam 1 gm IVPB Q8H MAXINE Piperacillin Sod/Tazobactam 3.375 gm IVPB Q8H MAXINE Status: Acute (2) Bronchiectasis Assessment & Plan: As per pneumonia Status: Acute (3) HIV (human immunodeficiency virus infection) Status: Chronic (4) Pulmonary hypertension Status: Chronic (5) Asthma Assessment & Plan: Continue Albuterol/Ipratropium INH RQ6 MAXINE Continue Montelukast Sodium (Singulair) 10 mg PO HS Status: Acute (6) Ascites Status: Acute (7) Pulmonary embolism Assessment & Plan: CT angiogram negative for acute PE Heparin drip switched to Heparin 5,000 units SC Q8 MAXINE Status: Acute
--- NOTE | 2017-11-20 14:12 | US ---
PROCEDURE: Bladder ultrasound HISTORY: Pulmonary embolism. Dyspnea. Leukocytosis. TECHNIQUE: Sonographic evaluation of the pelvis.-bladder performed. Correlation made with abdominal ultrasound and prior CTA chest. FINDINGS: In situ unclamped Dhaliwal catheter present around which the urinary bladder is collapsed. Evaluation is therefore limited. Large amount of complex appearing ascites present. IMPRESSION: In situ unclamped Dhaliwal catheter present around which the urinary bladder is collapsed. Evaluation is therefore limited. Large amount of complex appearing ascites present.
--- NOTE | 2017-11-20 14:16 | US ---
Date of service: 11/20/2017 HISTORY: abdominal pain COMPARISON: None. TECHNIQUE: Sonographic evaluation of the abdomen. FINDINGS: LIVER: Liver is cirrhotic in appearance with nodular surface contour measuring 12.5 cm in CC dimension. . Heterogeneous parenchymal echotexture however no definitive mass. No intrahepatic bile duct dilatation. Large amount of abdominal ascites GALLBLADDER: Cholelithiasis with apparent stone in the gallbladder neck region.. No pericholecystic fluid collections or sonographic Akers sign. COMMON BILE DUCT: Common bile duct is dilated measuring 1.19 cm. mm. There is an approximately 8 mm calculus within the common bile duct. No dilatation. PANCREAS: Pancreas not visualized. RIGHT KIDNEY: Measures 9.9 x 3.7 x 3.8cm. Normal echogenicity. No calculus, mass, or hydronephrosis. LEFT KIDNEY: Measures 7.6 x 4.2 x 4.2cm. Normal echogenicity. No calculus, mass, or hydronephrosis.. Small lower pole cyst 1 mm. Small midpole cyst measuring 1.1 x 0.76 x 0.90 cm. SPLEEN: Spleen not visualized. AORTA: No aneurysmal dilatation. IVC: Unremarkable. OTHER FINDINGS: None. IMPRESSION: Findings consistent with hepatic cirrhosis. Large amount of abdominal ascites. Cholelithiasis with apparent stone in the gallbladder neck.. Choledocholithiasis with dilatation of the common bile duct. Pancreas and spleen not visualized. Two tiny cysts left kidney.
--- NOTE | 2017-11-20 18:48 | PN ---
DATE: 11/20/2017 SUBJECTIVE: The patient seen and examined at bedside. I spoke to the patient via Micronesian-speaking spanish interpreter who is an RN. The patient is still complaining of abdominal discomfort. His shortness of breath is better. Denies any chest pain. Denies any other new complaints. PHYSICAL EXAMINATION: GENERAL: Elderly male lying in bed, in no acute distress. VITAL SIGNS: Blood pressure 144/88, pulse 86, respirations 20, temperature 97.4 degrees Fahrenheit, and O2 sat 97% on room air. HEENT: Pupils equal, round, and reacting to light and accommodation. Extraocular muscles intact. No icterus. No pallor. No oral thrush. Dry mucous membranes. NECK: Supple. No JVD. LUNGS: Bilateral vesicular breath sounds. Bilateral basal rhonchi heard. CVS: S1 and S2 present, regular. ABDOMEN: Soft. Distended. Bowel sounds present. Nontender. No guarding. SANITATION ENGINEER: Alert, awake, oriented x3. No focal deficits noted. EXTREMITIES: No edema. Palpable peripheral pulses. MEDICATIONS: Include Mucomyst 4 mL p.o. every 12 hours, DuoNeb 3 mL every 6 hours, Azactam 1 g IV every 8 hours, D5 half normal saline at 75 mL an hour, heparin 5000 units subcu every 8 hours, Singulair 10 mg p.o. at bedtime, morphine 1 mg IV push every 6 hours p.r.n., Zosyn 3.375 g IV every 8 hours, and Flomax 0.4 mg daily. LABORATORY DATA: Labs done from this morning; WBC 28.5, hemoglobin 11.7, hematocrit 36.1, platelets 460. Sodium 140, potassium 4.5, chloride 102, bicarb 28, BUN 48, creatinine 1.7, glucose 136, calcium 8.7, phosphorus 5.1, magnesium 2.4, AST 32, ALT 27, alkaline phosphatase 139, C-reactive protein 56.7, total protein 6.1, albumin 3.2, procalcitonin 0.46, triglycerides 98, cholesterol 129, LDL 61, HDL 44, alpha-fetoprotein 1.7, CEA 0.9, CA19-9 less than 1.4. PSA 10, TSH is 6.35. UA; specific gravity 1.057, protein 2+, blood 3+, wbc 94, rbc 1044. Urine culture and blood culture results are pending. ASSESSMENT AND PLAN: Elderly male with history of human immunodeficiency virus positive, on antiretroviral therapy, osteoarthritis status post left total knee replacement, idiopathic pulmonary fibrosis, primary pulmonary hypertension, status post colonoscopy for colonic polyp, admitted for shortness of breath with cough, found to have elevated D-dimer and V/Q was high probability. The patient was started on intravenous heparin. Confirmatory CT angiogram was negative for any pulmonary embolism, so heparin was discontinued and the patient was found to have new onset ascites with possible cirrhosis, questionable etiology and possible common bile duct stone and cholelithiasis with bladder neck stone with worsening white blood cell count and urinary retention with history of prostate carcinoma, acute kidney injury probably from urinary retention, dehydration, decreased p.o. intake, rule out other causes. We will continue with nebulizer treatments, continue with acetylcysteine, continue with Flomax 0.4 mg daily, Zosyn 3.375 g intravenously every 8 hours, morphine as needed for pain. We will leave the Dhaliwal catheter in. The patient put out around 200 mL from this morning. We will continue with gentle hydration. Gastroenterology consult appreciated. The patient is for possible paracentesis by Interventional Radiology and for possible magnetic resonance cholangiopancreatography for further evaluation of the common bile duct stone. We will check HIDA scan. Discussed with the patient at length and explained the patient's condition. We will repeat labs in a.m. We will add further recommendation as his clinical course progresses. Kimberly Haines MD
--- NOTE | 2017-11-20 19:06 | CP.PCM.CON ---
History of Present Illness - History of Present Illness History of Present Illness: dictated Past Patient History - Past Medical History & Family History Past Medical History?: Yes - Past Social History Smoking Status: Current Some Days Smoker - CARDIAC Hx Cardia Arrhythmia: No Hx Hypertension: Yes (Denies) Hx Pacemaker: No - PULMONARY Hx Asthma: Yes Hx Emphysema: Yes Hx Pneumonia: Yes - NEUROLOGICAL Hx Neurological Disorder: No - HEENT Hx HEENT Problems: No Hx Cataracts: Yes - RENAL Hx Chronic Kidney Disease: No - ENDOCRINE/METABOLIC Hx Endocrine Disorders: No - HEMATOLOGICAL/ONCOLOGICAL Hx Human Immunodeficiency Virus (HIV): Yes - INTEGUMENTARY Hx Dermatological Problems: No - MUSCULOSKELETAL/RHEUMATOLOGICAL Hx Arthritis: Yes Hx Falls: Yes - GASTROINTESTINAL Hx Gastrointestinal Disorders: Yes Hx Bowel Surgery: Yes (Hernia) Hx Colostomy: Yes Hx Constipation: Yes Hx Gastritis: Yes Hx Liver Failure: No - GENITOURINARY/GYNECOLOGICAL Hx Genitourinary Disorders: Yes Hx Prostate Problems: Yes - PSYCHIATRIC Hx Substance Use: No - SURGICAL HISTORY Hx Surgeries: Yes Hx Cataract Extraction: Yes Hx Eye Surgery: Yes Hx Herniorrhaphy: Yes Hx Orthopedic Surgery: Yes (Left knee) Other/Comment: UNKNOWN ABDOMINAL SURGERY - ANESTHESIA Hx Anesthesia: Yes Hx Anesthesia Reactions: No Hx Malignant Hyperthermia: No Meds Allergies/Adverse Reactions: Allergies Allergy/AdvReac Type Severity Reaction Status Date / Time No Known Allergies Allergy Verified 11/19/17 08:24 - Medications Medications: Current Medications Acetylcysteine (Acetylcysteine 20%) 4 ml PO Q12H MAXINE Last Admin: 11/19/17 21:54 Dose: 4 ml Albuterol/Ipratropium (Duoneb 3 Mg/0.5 Mg (3 Ml) Ud) 3 ml INH RQ6 MAXINE Last Admin: 11/20/17 08:32 Dose: 3 ml Heparin Sodium (Porcine) (Heparin) 5,000 units SC Q8 MAXINE Last Admin: 11/20/17 13:24 Dose: 5,000 units Aztreonam 1 gm/ Sodium (Chloride) 100 mls @ 100 mls/hr IVPB Q8H [facility]; Protocol Last Admin: 11/20/17 13:23 Dose: 100 mls/hr Dextrose/Sodium Chloride (Dextrose 5%/0.45% Ns 1000 Ml) 1,000 mls @ 75 mls/hr IV .[id number] MAXINE Last Admin: 11/19/17 23:00 Dose: 75 mls/hr Piperacillin Sod/Tazobactam (Sod 3.375 gm/ Sodium Chloride) 100 mls @ 200 mls/hr IVPB Q8H [facility]; Protocol Last Admin: 11/20/17 18:23 Dose: 200 mls/hr Montelukast Sodium (Singulair) 10 mg PO HS [facility] Last Admin: 11/20/17 09:50 Dose: 10 mg Morphine Sulfate (Morphine) 1 mg IVP Q6 PRN PRN Reason: Pain, severe (8-10) Tamsulosin HCl (Flomax) 0.4 mg PO DAILY [facility] Last Admin: 11/20/17 09:50 Dose: 0.4 mg Results - Vital Signs Recent Vital Signs: Last Vital Signs Temp 98.1 F 11/20/17 15:00 Pulse 82 11/20/17 16:51 Resp 18 11/20/17 15:00 BP 128/78 11/20/17 15:00 Pulse Ox 95 11/20/17 15:00 - Labs Result Diagrams: 11/20/17 07:48 11/20/17 07:48 Labs: Laboratory Results - last 24 hr 11/19/17 11/19/17 11/19/17 20:37 21:46 21:46 WBC RBC Hgb Hct MCV MCH MCHC RDW Plt Count MPV Neut % (Auto) Lymph % (Auto) [place] % (Auto) Eos % (Auto) Baso % (Auto) Neut # (Auto) Lymph # (Auto) [place] # (Auto) Eos # (Auto) Baso # (Auto) Neutrophils % (Manual) Band Neutrophils % Lymphocytes % (Manual) Monocytes % (Manual) Platelet Estimate Large Platelets Giant Platelets Polychromasia Hypochromasia (manual) Anisocytosis (manual) ESR PT INR APTT Puncture Site Lb pCO2 41 pO2 71 L HCO3 24.2 ABG pH 7.38 ABG Total CO2 25.6 ABG O2 Saturation 96.8 ABG Base Excess -0.8 ABG Hemoglobin 11.5 L ABG Carboxyhemoglobin 2.3 H POC ABG HHb (Measured) 3.1 ABG Methemoglobin 1.2 Channing Test Na A-a O2 Difference 27.0 Respiratory Index 0.4 Hgb O2 Saturation 93.4 L FiO2 21.0 Sodium Potassium Chloride Carbon Dioxide Anion Gap BUN Creatinine Est GFR ( Amer) Est GFR (Non-Af Amer) Random Glucose Calcium Phosphorus Magnesium Total Bilirubin AST ALT Alkaline Phosphatase C-Reactive Protein 56.70 H Total Protein Albumin Globulin Albumin/Globulin Ratio Triglycerides Cholesterol LDL Cholesterol Direct HDL Cholesterol Alpha Fetoprotein 1.7 Carcinoembryonic Ag 0.9 CA 19-9 Antigen < 1.4 Procalcitonin TSH 3rd Generation Urine Color Urine Clarity Urine pH Ur Specific [place] Urine Protein Urine Glucose (UA) Urine Ketones Urine Blood Urine Nitrate Urine Bilirubin Urine Urobilinogen Ur Leukocyte Esterase Urine WBC (Auto) Urine RBC (Auto) Ur Squamous Epith Cells Mycoplasma pneumon IgM 11/19/17 11/19/17 11/19/17 21:46 21:46 21:46 WBC RBC Hgb Hct MCV MCH MCHC RDW Plt Count MPV Neut % (Auto) Lymph % (Auto) [place] % (Auto) Eos % (Auto) Baso % (Auto) Neut # (Auto) Lymph # (Auto) [place] # (Auto) Eos # (Auto) Baso # (Auto) Neutrophils % (Manual) Band Neutrophils % Lymphocytes % (Manual) Monocytes % (Manual) Platelet Estimate Large Platelets Giant Platelets Polychromasia Hypochromasia (manual) Anisocytosis (manual) ESR 21 H PT INR APTT Puncture Site pCO2 pO2 HCO3 ABG pH ABG Total CO2 ABG O2 Saturation ABG Base Excess ABG Hemoglobin ABG Carboxyhemoglobin POC ABG HHb (Measured) ABG Methemoglobin [place]anning Test A-a O2 Difference Respiratory Index Hgb O2 Saturation FiO2 Sodium Potassium Chloride Carbon Dioxide Anion Gap BUN Creatinine Est GFR ( Amer) Est GFR (Non-Af Amer) Random Glucose Calcium Phosphorus Magnesium Total Bilirubin AST ALT Alkaline Phosphatase C-Reactive Protein Total Protein Albumin Globulin Albumin/Globulin Ratio Triglycerides Cholesterol LDL Cholesterol Direct HDL Cholesterol Alpha Fetoprotein Carcinoembryonic Ag CA 19-9 Antigen Procalcitonin 0.46 TSH 3rd Generation Urine Color Urine Clarity Urine pH Ur Specific [place] Urine Protein Urine Glucose (UA) Urine Ketones Urine Blood Urine Nitrate Urine Bilirubin Urine Urobilinogen Ur Leukocyte Esterase Urine WBC (Auto) Urine RBC (Auto) Ur Squamous Epith Cells Mycoplasma pneumon IgM Negative 11/19/17 11/19/17 11/20/17 23:59 23:59 07:48 WBC 28.5 H RBC 3.83 L Hgb 11.7 L Hct 36.1 MCV 94.2 H MCH 30.6 MCHC 32.5 L RDW 15.3 H Plt Count 460 H MPV 8.1 Neut % (Auto) 84.3 H Lymph % (Auto) 9.0 L [place] % (Auto) 6.6 Eos % (Auto) 0.0 Baso % (Auto) 0.1 Neut # (Auto) 24.0 H Lymph # (Auto) 2.6 [place] # (Auto) 1.9 H Eos # (Auto) 0.0 Baso # (Auto) 0.0 Neutrophils % (Manual) 82 H Band Neutrophils % 4 H Lymphocytes % (Manual) 7 L Monocytes % (Manual) 7 Platelet Estimate Increased H Large Platelets Present Giant Platelets Present Polychromasia Slight Hypochromasia (manual) Slight Anisocytosis (manual) Slight ESR PT 12.7 H INR 1.2 APTT 48 H D Puncture Site pCO2 pO2 HCO3 ABG pH ABG Total CO2 ABG O2 Saturation ABG Base Excess ABG Hemoglobin ABG Carboxyhemoglobin POC ABG HHb (Measured) ABG Methemoglobin [place] Test A-a O2 Difference Respiratory Index Hgb O2 Saturation FiO2 Sodium Potassium Chloride Carbon Dioxide Anion Gap BUN Creatinine Est GFR ( Amer) Est GFR (Non-Af Amer) Random Glucose Calcium Phosphorus Magnesium Total Bilirubin AST ALT Alkaline Phosphatase C-Reactive Protein Total Protein Albumin Globulin Albumin/Globulin Ratio Triglycerides Cholesterol LDL Cholesterol Direct HDL Cholesterol Alpha Fetoprotein Carcinoembryonic Ag CA 19-9 Antigen Procalcitonin TSH 3rd Generation Urine Color [place] Urine Clarity Turbid Urine pH 5.0 Ur Specific [place] 1.057 H Urine Protein 2+ H Urine Glucose (UA) Normal Urine Ketones Negative Urine Blood 3+ H Urine Nitrate Negative Urine Bilirubin Negative Urine Urobilinogen Normal Ur Leukocyte Esterase Trace Urine WBC (Auto) 94 H Urine RBC (Auto) 1044 H Ur Squamous Epith Cells 4 Mycoplasma pneumon IgM 11/20/17 11/20/17 07:48 07:48 WBC RBC Hgb Hct MCV MCH MCHC RDW Plt Count MPV Neut % (Auto) Lymph % (Auto) [place] % (Auto) Eos % (Auto) Baso % (Auto) Neut # (Auto) Lymph # (Auto) [place] # (Auto) Eos # (Auto) Baso # (Auto) Neutrophils % (Manual) Band Neutrophils % Lymphocytes % (Manual) Monocytes % (Manual) Platelet Estimate Large Platelets Giant Platelets Polychromasia Hypochromasia (manual) Anisocytosis (manual) ESR PT INR APTT 53 H D Puncture Site pCO2 pO2 HCO3 ABG pH ABG Total CO2 ABG O2 Saturation ABG Base Excess ABG Hemoglobin ABG Carboxyhemoglobin POC ABG HHb (Measured) ABG Methemoglobin [place] Test A-a O2 Difference Respiratory Index Hgb O2 Saturation FiO2 Sodium 140 Potassium 4.5 Chloride 102 Carbon Dioxide 28 Anion Gap 14 BUN 48 H Creatinine 1.7 H Est GFR ( Amer) 47 Est GFR (Non-Af Amer) 39 Random Glucose 136 H Calcium 8.7 Phosphorus 5.1 H Magnesium 2.4 H Total Bilirubin 0.2 AST 32 ALT 27 Alkaline Phosphatase 139 H C-Reactive Protein Total Protein 6.1 L Albumin 3.2 L Globulin 2.9 Albumin/Globulin Ratio 1.1 Triglycerides 98 Cholesterol 129 LDL Cholesterol Direct 61 HDL Cholesterol 44 Alpha Fetoprotein Carcinoembryonic Ag CA 19-9 Antigen Procalcitonin TSH 3rd Generation 6.35 H Urine Color Urine Clarity Urine pH Ur Specific [place] Urine Protein Urine Glucose (UA) Urine Ketones Urine Blood Urine Nitrate Urine Bilirubin Urine Urobilinogen Ur Leukocyte Esterase Urine WBC (Auto) Urine RBC (Auto) Ur Squamous Epith Cells Mycoplasma pneumon IgM
--- NOTE | 2017-11-20 20:52 | CP.PCM.CON ---
History of Present Illness - History of Present Illness History of Present Illness: 82 year old male with a history of BPH, HIV on HAART, idiopathic pulmonary fibrosis, pulmonary HTN, recent knee replacement at [facility] in 09/2017, admitted with worsening pulmonary symptoms, and suspicion for PE on a heparin drip. The patient was found to have a high ddimer and sent for V/Q scan which per ER documentation which showed high probability for PE. A CT angio of the chest was negative for central PE and the heparin drip has been discontinued. Imaging was concerning for liver cirrhosis. Past medical history: BPH, HIV on HAART, idiopathic pulmonary fibrosis, pulmonary HTN, recent knee replacement at [facility] in 09/2017 Past surgical history: Knee replacement 09/2017 Family history: Denies Social history: Denies Allergies: NKA Review of systems: All remaining review of systems including HEENT, cardiovasc ular, respiratory, gastrointestinal, genitourinary, musculoskeletal, dermatologic, neurologic, and psychiatric are negative unless mentioned in the HPI. Past Patient History - Past Medical History & Family History Past Medical History?: Yes - Past Social History Smoking Status: Current Some Days Smoker - CARDIAC Hx Cardia Arrhythmia: No Hx Hypertension: Yes (Denies) Hx Pacemaker: No - PULMONARY Hx Asthma: Yes Hx Emphysema: Yes Hx Pneumonia: Yes - NEUROLOGICAL Hx Neurological Disorder: No - HEENT Hx HEENT Problems: No Hx Cataracts: Yes - RENAL Hx Chronic Kidney Disease: No - ENDOCRINE/METABOLIC Hx Endocrine Disorders: No - HEMATOLOGICAL/ONCOLOGICAL Hx Human Immunodeficiency Virus (HIV): Yes - INTEGUMENTARY Hx Dermatological Problems: No - MUSCULOSKELETAL/RHEUMATOLOGICAL Hx Arthritis: Yes Hx Falls: Yes - GASTROINTESTINAL Hx Gastrointestinal Disorders: Yes Hx Bowel Surgery: Yes (Hernia) Hx Colostomy: Yes Hx Constipation: Yes Hx Gastritis: Yes Hx Liver Failure: No - GENITOURINARY/GYNECOLOGICAL Hx Genitourinary Disorders: Yes Hx Prostate Problems: Yes - PSYCHIATRIC Hx Substance Use: No - SURGICAL HISTORY Hx Surgeries: Yes Hx Cataract Extraction: Yes Hx Eye Surgery: Yes Hx Herniorrhaphy: Yes Hx Orthopedic Surgery: Yes (Left knee) Other/Comment: UNKNOWN ABDOMINAL SURGERY - ANESTHESIA Hx Anesthesia: Yes Hx Anesthesia Reactions: No Hx Malignant Hyperthermia: No Meds Allergies/Adverse Reactions: Allergies Allergy/AdvReac Type Severity Reaction Status Date / Time No Known Allergies Allergy Verified 11/19/17 08:24 - Medications Medications: Current Medications Acetylcysteine (Acetylcysteine 20%) 4 ml PO Q12H MAXINE Last Admin: 11/19/17 21:54 Dose: 4 ml Albuterol/Ipratropium (Duoneb 3 Mg/0.5 Mg (3 Ml) Ud) 3 ml INH RQ6 MAXINE Last Admin: 11/20/17 20:41 Dose: 3 ml Heparin Sodium (Porcine) (Heparin) 5,000 units SC Q8 MAXINE Last Admin: 11/20/17 13:24 Dose: 5,000 units Aztreonam 1 gm/ Sodium (Chloride) 100 mls @ 100 mls/hr IVPB Q8H [facility]; Protocol Last Admin: 11/20/17 13:23 Dose: 100 mls/hr Dextrose/Sodium Chloride (Dextrose 5%/0.45% Ns 1000 Ml) 1,000 mls @ 75 mls/hr IV .[id number] [facility] Last Admin: 11/19/17 23:00 Dose: 75 mls/hr Piperacillin Sod/Tazobactam (Sod 3.375 gm/ Sodium Chloride) 100 mls @ 200 mls/hr IVPB Q8H [facility]; Protocol Last Admin: 11/20/17 18:23 Dose: 200 mls/hr Montelukast Sodium (Singulair) 10 mg PO HS [facility] Last Admin: 11/20/17 09:50 Dose: 10 mg Morphine Sulfate (Morphine) 1 mg IVP Q6 PRN PRN Reason: Pain, severe (8-10) Tamsulosin HCl (Flomax) 0.4 mg PO DAILY [facility] Last Admin: 11/20/17 09:50 Dose: 0.4 mg Physical Exam - Head Exam Head Exam: ATRAUMATIC - Eye Exam Eye Exam: Normal appearance - ENT Exam ENT Exam: Mucous Membranes Dry - Respiratory Exam Respiratory Exam: NORMAL BREATHING PATTERN - Cardiovascular Exam Cardiovascular Exam: +S1, +S2 - GI/Abdominal Exam GI & Abdominal Exam: Normal Bowel Sounds - Extremities Exam Extremities exam: Positive for: normal inspection - Psychiatric Exam Psychiatric exam: Flat Affect - Skin Skin Exam: Warm Results - Vital Signs Recent Vital Signs: Last Vital Signs Temp 98.1 F 11/20/17 15:00 Pulse 82 11/20/17 16:51 Resp 18 11/20/17 15:00 BP 128/78 11/20/17 15:00 Pulse Ox 95 11/20/17 15:00 - Labs Result Diagrams: 11/20/17 07:48 11/20/17 07:48 Labs: Laboratory Results - last 24 hr 11/19/17 11/19/17 11/19/17 21:46 21:46 21:46 WBC RBC Hgb Hct MCV MCH MCHC RDW Plt Count MPV Neut % (Auto) Lymph % (Auto) [place] % (Auto) Eos % (Auto) Baso % (Auto) Neut # (Auto) Lymph # (Auto) [place] # (Auto) Eos # (Auto) Baso # (Auto) Neutrophils % (Manual) Band Neutrophils % Lymphocytes % (Manual) Monocytes % (Manual) Platelet Estimate Large Platelets Giant Platelets Polychromasia Hypochromasia (manual) Anisocytosis (manual) ESR PT INR APTT Sodium Potassium Chloride Carbon Dioxide Anion Gap BUN Creatinine Est GFR ( Amer) Est GFR (Non-Af Amer) Random Glucose Calcium Phosphorus Magnesium Total Bilirubin AST ALT Alkaline Phosphatase C-Reactive Protein 56.70 H Total Protein Albumin Globulin Albumin/Globulin Ratio Triglycerides Cholesterol LDL Cholesterol Direct HDL Cholesterol Alpha Fetoprotein 1.7 Carcinoembryonic Ag 0.9 CA 19-9 Antigen < 1.4 Procalcitonin TSH 3rd Generation Urine Color Urine Clarity Urine pH Ur Specific [place] Urine Protein Urine Glucose (UA) Urine Ketones Urine Blood Urine Nitrate Urine Bilirubin Urine Urobilinogen Ur Leukocyte Esterase Urine WBC (Auto) Urine RBC (Auto) Ur Squamous Epith Cells Mycoplasma pneumon IgM Negative 11/19/17 11/19/17 11/19/17 21:46 21:46 23:59 WBC RBC Hgb Hct MCV MCH MCHC RDW Plt Count MPV Neut % (Auto) Lymph % (Auto) [place] % (Auto) Eos % (Auto) Baso % (Auto) Neut # (Auto) Lymph # (Auto) [place] # (Auto) Eos # (Auto) Baso # (Auto) Neutrophils % (Manual) Band Neutrophils % Lymphocytes % (Manual) Monocytes % (Manual) Platelet Estimate Large Platelets Giant Platelets Polychromasia Hypochromasia (manual) Anisocytosis (manual) ESR 21 H PT INR APTT Sodium Potassium Chloride Carbon Dioxide Anion Gap BUN Creatinine Est GFR ( Amer) Est GFR (Non-Af Amer) Random Glucose Calcium Phosphorus Magnesium Total Bilirubin AST ALT Alkaline Phosphatase C-Reactive Protein Total Protein Albumin Globulin Albumin/Globulin Ratio Triglycerides Cholesterol LDL Cholesterol Direct HDL Cholesterol Alpha Fetoprotein Carcinoembryonic Ag CA 19-9 Antigen Procalcitonin 0.46 TSH 3rd Generation Urine Color [place] Urine Clarity Turbid Urine pH 5.0 Ur Specific [place] 1.057 H Urine Protein 2+ H Urine Glucose (UA) Normal Urine Ketones Negative Urine Blood 3+ H Urine Nitrate Negative Urine Bilirubin Negative Urine Urobilinogen Normal Ur Leukocyte Esterase Trace Urine WBC (Auto) 94 H Urine RBC (Auto) 1044 H Ur Squamous Epith Cells 4 Mycoplasma pneumon IgM 11/19/17 11/20/17 11/20/17 23:59 07:48 07:48 WBC 28.5 H RBC 3.83 L Hgb 11.7 L Hct 36.1 MCV 94.2 H MCH 30.6 MCHC 32.5 L RDW 15.3 H Plt Count 460 H MPV 8.1 Neut % (Auto) 84.3 H Lymph % (Auto) 9.0 L [place] % (Auto) 6.6 Eos % (Auto) 0.0 Baso % (Auto) 0.1 Neut # (Auto) 24.0 H Lymph # (Auto) 2.6 [place] # (Auto) 1.9 H Eos # (Auto) 0.0 Baso # (Auto) 0.0 Neutrophils % (Manual) 82 H Band Neutrophils % 4 H Lymphocytes % (Manual) 7 L Monocytes % (Manual) 7 Platelet Estimate Increased H Large Platelets Present Giant Platelets Present Polychromasia Slight Hypochromasia (manual) Slight Anisocytosis (manual) Slight ESR PT 12.7 H INR 1.2 APTT 48 H D Sodium 140 Potassium 4.5 Chloride 102 Carbon Dioxide 28 Anion Gap 14 BUN 48 H Creatinine 1.7 H Est GFR ( Amer) 47 Est GFR (Non-Af Amer) 39 Random Glucose 136 H Calcium 8.7 Phosphorus 5.1 H Magnesium 2.4 H Total Bilirubin 0.2 AST 32 ALT 27 Alkaline Phosphatase 139 H C-Reactive Protein Total Protein 6.1 L Albumin 3.2 L Globulin 2.9 Albumin/Globulin Ratio 1.1 Triglycerides 98 Cholesterol 129 LDL Cholesterol Direct 61 HDL Cholesterol 44 Alpha Fetoprotein Carcinoembryonic Ag CA 19-9 Antigen Procalcitonin TSH 3rd Generation 6.35 H Urine Color Urine Clarity Urine pH Ur Specific [place] Urine Protein Urine Glucose (UA) Urine Ketones Urine Blood Urine Nitrate Urine Bilirubin Urine Urobilinogen Ur Leukocyte Esterase Urine WBC (Auto) Urine RBC (Auto) Ur Squamous Epith Cells Mycoplasma pneumon IgM 11/20/17 07:48 WBC RBC Hgb Hct MCV MCH MCHC RDW Plt Count MPV Neut % (Auto) Lymph % (Auto) [place] % (Auto) Eos % (Auto) Baso % (Auto) Neut # (Auto) Lymph # (Auto) [place] # (Auto) Eos # (Auto) Baso # (Auto) Neutrophils % (Manual) Band Neutrophils % Lymphocytes % (Manual) Monocytes % (Manual) Platelet Estimate Large Platelets Giant Platelets Polychromasia Hypochromasia (manual) Anisocytosis (manual) ESR PT INR APTT 53 H D Sodium Potassium Chloride Carbon Dioxide Anion Gap BUN Creatinine Est GFR ( Amer) Est GFR (Non-Af Amer) Random Glucose Calcium Phosphorus Magnesium Total Bilirubin AST ALT Alkaline Phosphatase C-Reactive Protein Total Protein Albumin Globulin Albumin/Globulin Ratio Triglycerides Cholesterol LDL Cholesterol Direct HDL Cholesterol Alpha Fetoprotein Carcinoembryonic Ag CA 19-9 Antigen Procalcitonin TSH 3rd Generation Urine Color Urine Clarity Urine pH Ur Specific [place] Urine Protein Urine Glucose (UA) Urine Ketones Urine Blood Urine Nitrate Urine Bilirubin Urine Urobilinogen Ur Leukocyte Esterase Urine WBC (Auto) Urine RBC (Auto) Ur Squamous Epith Cells Mycoplasma pneumon IgM Assessment & Plan (1) D-dimer, elevated Assessment and Plan: CT angio of the chest negative for central PE heparin drip discontinued on heparin prophylaxis Status: Acute (2) Leucocytosis Assessment and Plan: on antibiotics Status: Acute (3) Anemia Assessment and Plan: will check retic count, b12, folate, ferritin to further characterize Status: Acute (4) Coagulopathy Assessment and Plan: anticoagulation Thank you for this interesting consult. Status: Acute
[2017-11-20] MEDS: Acetylcysteine 20% Inhal Soln (4ml) PO SCH (22:41)
[2017-11-21] MEDS: Albuterol-Ipratrop 3 mg / 0.5 (3 ml) UD INH SCH ×4 (02:04→20:17)
[2017-11-21] MEDS: Dextrose 5%/0.45% NS 1,000 ML IV SCH ×2 (02:13→15:10)
[2017-11-21] MEDS: Piperacillin/Tazobact 3.375 GM in Sodium Chloride 100 ML IVPB SCH ×2 (02:14→10:07)
[2017-11-21] MEDS: Aztreonam 1 GM in Sodium Chloride 0.9% 100 ML IVPB SCH ×3 (04:32→22:14)
[2017-11-21 07:13] LABS: BASO # 0.1 K/uL (0.0-0.2); BASO % 0.2 % (0.0-2.0); EOS # 0.1 K/uL (0.0-0.7); EOS % 0.2 % (0.0-4.0); HEMOGLOBIN 12.5 g/dL (12.0-18.0); LYMPH # 2.4 K/uL (1.0-4.3); LYMPH % 7.8 % (20.0-40.0); MEAN CELL VOLUME 94.6 fL (80.0-94.0); MEAN CORPUSCULAR HEMOGLOBIN 30.8 pg (27.0-31.0); MEAN CORPUSCULAR HGB CONC 32.6 g/dL (33.0-37.0); MEAN PLATELET VOLUME 8.3 fL (7.2-11.7); MONO # 2.3 K/uL (0.0-0.8); MONO % 7.6 % (0.0-10.0); NEUT # 26.2 K/uL (1.8-7.0); NEUT % 84.2 % (50.0-75.0); PLATELET COUNT 470 K/uL (130-400); RBC 4.04 Mil/uL (4.40-5.90); RED CELL DISTRIBUTION WIDTH 15.9 % (11.5-14.5); WHITE BLOOD COUNT 31.1 K/uL (4.8-10.8)
[2017-11-21 07:16] LABS: INR 1.1; PROTHROMBIN TIME 12.5 SECONDS (9.7-12.2)
--- NOTE | 2017-11-21 07:22 | CON ---
DATE: 11/20/2017 INFECTIOUS DISEASE CONSULTATION REQUESTED BY: Kimberly Haines MD HISTORY OF PRESENT ILLNESS: This consult, I was called in last evening. The patient is an 82-year-old male. He has history of HIV, asthma, arthritis, pneumonia in the past. He came in with severs shortness of breath, cough, and congestion which was there for two days. He was also having some pain and he had a CTA of the chest and while they were waiting for that report, I think he was on heparin, but he is not on it anymore. He does not appear to have respiratory issues at this time. The patient is awake and alert. He gives me his name and he is able to tell me the phone number of his pharmacy; however, they are closed at this time, so we will try to get information tomorrow. He has been on multiple HIV medications. He does not remember any names. He did say they were given before. He also has a Dhaliwal catheter, as he has urinary retention. He was also seen by GI for a nodular liver with ascites and CBD with appearance of a stone in the CBD. The patient did have retention and right now he has a Dhaliwal present. The patient also has history of pulmonary fibrosis, asthma, pneumonia. He denies any cough. No chest pain. His CT came out negative for acute PE. He is now on DVT prophylaxis. 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 He is in no acute respiratory distress. Denies any abdominal pain. No nausea. No vomiting. No diarrhea. His urine does show UTI and probably the antibiotics I have him on will cover that and since he was on HIV medications, I do not think he has any opportunist infection at this time. ALLERGIES: HE IS NOT ALLERGIC TO ANY MEDICINE. MEDICATIONS: His list had too many medications. HIV medicines, which probably cannot be given together. I would think he would either be on tenofovir or he is on abacavir, Reyataz, and Norvir, but . We will see if we can see if that number is correct, we will check tomorrow. His medications at the present time, he is on acetylcysteine and DuoNeb. I left him on Zosyn and Azactam, as his white count did go up overnight. He is also on Dextrose, Singulair, and on Flomax. PHYSICAL EXAMINATION: GENERAL: He is awake, alert, speaks Yoruba. VITAL SIGNS: On examination now, his T-max was 98.6, pulse is 82, blood pressure 128/79, and respirations are 20. HEENT: Head is atraumatic, normocephalic. Pupils are reacting to light. NECK: Supple. JVP is flat. LUNGS: Decreased breath sounds bilaterally. HEART: S1 and S2, regular. ABDOMEN: Soft, nontender. No guarding. No rigidity present. He has a catheter draining. EXTREMITIES: No edema. LABORATORY DATA: CT of the chest showed moderate-sized hiatal hernia. Findings: Hepatic cirrhosis with large amount of upper abdominal ascites and infiltrated changes within the visualized mesenteric fat. His labs show white count is 28.5, hemoglobin 11.7, hematocrit 36.1, and platelet count is 460. WBC worsened from yesterday, which was 23.8. There are 4 bands and 82% neutrophils, ABG was done yesterday which showed pH was 7.3, pO2 was 79, pCO2 was 41, but saturation is 93.4, so that is good. Creatinine is 1.7, BUN is 48. LFTs, alk phos is 139. His urine culture, blood culture x2 were negative; however, UA came out with pyuria, had 94 wbc's and 1044 rbc's, but this was late in the night, maybe effect of heparin IV and also chest x-ray. He had bladder ultrasound and an abdominal ultrasound, which show findings consistent with hepatic cirrhosis, large amount of abdominal ascites, cholelithiasis with apparent stone in the gallbladder neck, choledocholithiasis with dilatation of the CBD. Pancreas and spleen not visualized. ASSESSMENT AND PLAN: So, we will follow the recommendations of GI because this could be choledocholithiasis, which is possible and liver is cirrhotic. He is human immunodeficiency virus positive and did come with shortness of breath. I want to see what Dr. Vasquez suggested. Dr. Vasquez's note suggested ascites, dyspnea, human immunodeficiency virus . Sonogram is suspicious. He ordered magnetic resonance cholangiopancreatography as it is suspicious and GI does not know ERCP. Continue antibiotics. Monitor labs. So, we will continue with both the antibiotics at this time to exclude choledocholithiasis as the cause and he is human immunodeficiency virus positive, need to see if what medications to renew for his maintenance and we are waiting for the CD4 count and an human immunodeficiency virus viral load. Daniel Fajardo MD
[2017-11-21 07:29] LABS: IRON 29 ug/dL (49-181)
[2017-11-21 07:39] LABS: % IRON SATURATION 15 (20-55); TOTAL IRON BINDING CAPACITY 197 ug/dL (250-450)
[2017-11-21 07:47] LABS: ALBUMIN 2.9 g/dL (3.5-5.0); CALCIUM 8.9 mg/dl (8.6-10.4)
[2017-11-21 08:02] LABS: FERRITIN 88.3 ng/mL
[2017-11-21 08:32] LABS: FOLATE 15.4 ng/mL
[2017-11-21 08:39] LABS: HEPATITIS B SURFACE AG Negative (NEGATIVE)
[2017-11-21 08:45] LABS: HEPATITIS A IGM NEGATIVE (NEGATIVE); HEPATITIS B CORE AB NEGATIVE (NEGATIVE)
[2017-11-21 08:56] LABS: HEPATITIS C ANTIBODY NEGATIVE (NEGATIVE)
[2017-11-21 08:58] LABS: BANDS 2 % (0-2); LYMPHOCYTE 4 % (20-40); MONOCYTE 2 % (0-10); NEUTROPHIL 92 % (50-75); TOTAL CELLS COUNTED 100
[2017-11-21 09:00] LABS: ANISOCYTOSIS SLIGHT; PLATELET ESTIMATE SLIGHTLY INCREASED (NORMAL)
[2017-11-21 09:01] LABS: HYPOCHROMIC SLIGHT; POLYCHROMIC SLIGHT
--- NOTE | 2017-11-21 10:03 | CP.PCM.PN ---
Subjective - Date & Time of Evaluation Date of Evaluation: 11/21/17 Time of Evaluation: 10:02 - Subjective Subjective: Pulmonary Follow up, Covering Dr Begum The patient was Seen/interviewed and examined by me at the bedside, Medical records reviewed and Management issues were discussed and formulated with the house staff. Events reviewed Patient afebrile and in no acute distress. Resting comfortably, seen s/p paracentesis with 4.5L of straw colored fluid. Patient reports he is tired after procedure but feeling well overall. Denies chest pain, cough or SOB. PLAN - Continue nebulizer therapy of Albuterol/Ipratropium. - Continue Montelukast - Continue Heparin as scheduled due to elevated D-dimer - Will follow up on results of Duplex scan of Lower extremity Objective - Vital Signs/Intake and Output Vital Signs (last 24 hours): Temp Pulse Resp BP Pulse Ox 98.1 F 85 20 95/59 L 94 L 11/21/17 07:12 11/21/17 07:12 11/21/17 07:12 11/21/17 07:12 11/21/17 07:12 - Medications Medications: Current Medications Acetylcysteine (Acetylcysteine 20%) 4 ml PO Q12H [facility] Last Admin: 11/20/17 22:41 Dose: 4 ml Albuterol/Ipratropium (Duoneb 3 Mg/0.5 Mg (3 Ml) Ud) 3 ml INH RQ6 [facility] Last Admin: 11/21/17 07:56 Dose: Not Given Heparin Sodium (Porcine) (Heparin) 5,000 units SC Q8 [facility] Last Admin: 11/21/17 05:31 Dose: 5,000 units Aztreonam 1 gm/ Sodium (Chloride) 100 mls @ 100 mls/hr IVPB Q8H [facility]INE; Protocol Last Admin: 11/21/17 04:32 Dose: 100 mls/hr Dextrose/Sodium Chloride (Dextrose 5%/0.45% Ns 1000 Ml) 1,000 mls @ 75 mls/hr IV .[id number] [facility] Last Admin: 11/21/17 02:13 Dose: Not Given Piperacillin Sod/Tazobactam (Sod 3.375 gm/ Sodium Chloride) 100 mls @ 200 mls/hr IVPB Q8H MAXINE; Protocol Last Admin: 11/21/17 02:14 Dose: 200 mls/hr Montelukast Sodium (Singulair) 10 mg PO HS [facility] Last Admin: 11/20/17 22:40 Dose: 10 mg Morphine Sulfate (Morphine) 1 mg IVP Q6 PRN PRN Reason: Pain, severe (8-10) Last Admin: 11/21/17 07:04 Dose: 1 mg Tamsulosin HCl (Flomax) 0.4 mg PO DAILY [facility] Last Admin: 11/20/17 09:50 Dose: 0.4 mg - Labs Labs: 11/21/17 06:48 11/21/17 06:48 PT 12.5 SECONDS (9.7-12.2) H 11/21/17 06:48 INR 1.1 11/21/17 06:48 APTT 24 SECONDS (21-34) D 11/21/17 06:48 - Constitutional Appears: Well, No Acute Distress - Head Exam Head Exam: ATRAUMATIC - Eye Exam Eye Exam: EOMI - ENT Exam ENT Exam: Mucous Membranes Moist - Neck Exam Neck Exam: Full ROM - Respiratory Exam Respiratory Exam: NORMAL BREATHING PATTERN - Cardiovascular Exam Cardiovascular Exam: REGULAR RHYTHM, +S1, +S2 Assessment and Plan (1) Community acquired pneumonia Assessment & Plan: - Continue antibiotics Status: Acute (2) Bronchiectasis Status: Acute (3) HIV (human immunodeficiency virus infection) Status: Chronic (4) Pulmonary hypertension Status: Chronic (5) Asthma Status: Acute (6) Ascites Status: Acute (7) Pulmonary embolism Status: Acute
--- NOTE | 2017-11-21 10:10 | CP.PCM.PN ---
Subjective - Date & Time of Evaluation Date of Evaluation: 11/21/17 Time of Evaluation: 10:10 - Subjective Subjective: Progress note dictated # [id number] Objective - Vital Signs/Intake and Output Vital Signs (last 24 hours): Temp Pulse Resp BP Pulse Ox 98.1 F 85 20 95/59 L 94 L 11/21/17 07:12 11/21/17 07:12 11/21/17 07:12 11/21/17 07:12 11/21/17 07:12 - Medications Medications: Current Medications Acetylcysteine (Acetylcysteine 20%) 4 ml PO Q12H [facility] Last Admin: 11/20/17 22:41 Dose: 4 ml Albuterol/Ipratropium (Duoneb 3 Mg/0.5 Mg (3 Ml) Ud) 3 ml INH RQ6 [facility] Last Admin: 11/21/17 07:56 Dose: Not Given Heparin Sodium (Porcine) (Heparin) 5,000 units SC Q8 [facility] Last Admin: 11/21/17 05:31 Dose: 5,000 units Aztreonam 1 gm/ Sodium (Chloride) 100 mls @ 100 mls/hr IVPB Q8H [facility]; Protocol Last Admin: 11/21/17 04:32 Dose: 100 mls/hr Dextrose/Sodium Chloride (Dextrose 5%/0.45% Ns 1000 Ml) 1,000 mls @ 75 mls/hr IV .[id number] [facility] Last Admin: 11/21/17 02:13 Dose: Not Given Piperacillin Sod/Tazobactam (Sod 3.375 gm/ Sodium Chloride) 100 mls @ 200 mls/hr IVPB Q8H [facility]; Protocol Last Admin: 11/21/17 10:07 Dose: 200 mls/hr Montelukast Sodium (Singulair) 10 mg PO HS [facility] Last Admin: 11/20/17 22:40 Dose: 10 mg Morphine Sulfate (Morphine) 1 mg IVP Q6 PRN PRN Reason: Pain, severe (8-10) Last Admin: 11/21/17 07:04 Dose: 1 mg Tamsulosin HCl (Flomax) 0.4 mg PO DAILY [facility] Last Admin: 11/21/17 10:07 Dose: 0.4 mg - Labs Labs: 11/21/17 06:48 11/21/17 06:48 PT 12.5 SECONDS (9.7-12.2) H 11/21/17 06:48 INR 1.1 11/21/17 06:48 APTT 24 SECONDS (21-34) D 11/21/17 06:48
[2017-11-21] MEDS ORDERED: Lidocaine Hydrochloride 5 ML INJ ONE (10:38)
--- NOTE | 2017-11-21 11:32 | NM ---
Date of service: 11/19/2017 COMPARISON: 11/19/2017 single-view chest. 11/19/2017 CT pulmonary angiogram. TECHNIQUE: 16.0 mCi technetium 99-m Xe-133 Gas. 4.0 mCI technetium 99-m MAA administered intravenously. FINDINGS: VENTILATION COMPONENT: Mild ventilatory heterogeneity. PERFUSION COMPONENT: Multiple geographic subsegmental defects consistent with pulmonary embolism. IMPRESSION: High probability ventilation perfusion scan for pulmonary embolism. Concordant results (preliminary interpretation) provided by [facility]. Procedure Completed: 14:58. Preliminary Report: Dictated and Authenticated: 15:58. Final Interpretation: 11:28. November 21, 2017
--- NOTE | 2017-11-21 11:52 | PCM.SURG1 ---
Surgeon's Initial Post Op Note - Surgeon's Notes Surgeon: Dov Barber MD Chute Feeder: NONE Type of Anesthesia: Local Pre-Operative Diagnosis: Ascites Operative Findings: US showed moderate amount of ascites Post-Operative Diagnosis: Ascites Operation Performed: US guided paracentesis Specimen/Specimens Removed: 4.5 liters of straw colored fluid Estimated Blood Loss: EBL {In ML}: 0 Blood Products Given: N/A Drains Used: No Drains Post-Op Condition: Fair Date of Surgery/Procedure: 11/21/17 Time of Surgery/Procedure: 11:00
[2017-11-21 12:00] LABS: BODY FLUID TYPE PERITONEAL/ASCITES
--- NOTE | 2017-11-21 12:00 | US ---
Date of Procedure: 11/21/2017 PROCEDURE: Ultrasound-guided paracentesis, CPT 60925 Medications: 7 cc 1% Lidocaine HISTORY: Ascites, abdominal pain, TECHNIQUE: Following informed consent , the patient was placed supine on the stretcher and the site was marked. A limited abdominal ultrasound was performed that showed a moderate amount of intra-abdominal fluid. Procedural time out was called and the Pt's abdomen was marked and prepped and draped in the usual sterile fashion. Ultrasound-guided large volume paracentesis performed. A total of 4.5 liters of straw colored fluid was removed without complication. Fluid specimen was sent for culture, sensitivity, cytology and chemistries. IMPRESSION: Ultrasound-guided paracentesis.
[2017-11-21] MEDS: Meropenem 500 MG in Sodium Chloride 0.9% 100 ML IVPB SCH ×2 (12:38→20:50)
[2017-11-21 12:45] LABS: BF GROSS APPEARANCE CLOUDY (CLEAR)
[2017-11-21 12:46] LABS: BODY FLUID MONO/MACROPHAGE 2 % (0-0); BODY FLUID TOTAL COUNT 100 (0-0)
[2017-11-21 14:39] LABS: LEGIONELLA AG URINE NEGATIVE (NEGATIVE)
--- NOTE | 2017-11-21 15:05 | CP.PCM.PN ---
Subjective - Date & Time of Evaluation Date of Evaluation: 11/21/17 Time of Evaluation: 15:02 - Subjective Subjective: f/u cirrhosis/ascites/CBD stobe Paracentesis done, preliminary cell count consistent with SBP. ID consult on board and patient on broad spectrum antibiotics. Marked leukocytosis, worsening, but patient is afebrile and appears pain free. Dr Hoffman consulted for ERCP. Patient presently in [facility] Objective - Vital Signs/Intake and Output Vital Signs (last 24 hours): Temp Pulse Resp BP Pulse Ox 98.1 F 85 20 95/59 L 94 L 11/21/17 07:12 11/21/17 07:12 11/21/17 07:12 11/21/17 07:12 11/21/17 07:12 Intake and Output: 11/21/17 11/21/17 06:59 18:59 Intake Total 875 Output Total 4600 Balance -3725 - Medications Medications: Current Medications Acetylcysteine (Acetylcysteine 20%) 4 ml PO Q12H [facility] Last Admin: 11/20/17 22:41 Dose: 4 ml Albuterol/Ipratropium (Duoneb 3 Mg/0.5 Mg (3 Ml) Ud) 3 ml INH RQ6 [facility] Last Admin: 11/21/17 14:31 Dose: Not Given Albuterol/Ipratropium (Combivent Respimat) 2 puff IH RBID [facility] Heparin Sodium (Porcine) (Heparin) 5,000 units SC Q8 [facility] Last Admin: 11/21/17 14:48 Dose: Not Given Aztreonam 1 gm/ Sodium (Chloride) 100 mls @ 100 mls/hr IVPB Q8H [facility]; Protocol Last Admin: 11/21/17 14:48 Dose: Not Given Dextrose/Sodium Chloride (Dextrose 5%/0.45% Ns 1000 Ml) 1,000 mls @ 75 mls/hr IV .[id number] [facility] Last Admin: 11/21/17 02:13 Dose: Not Given Meropenem 500 mg/ Sodium (Chloride) 100 mls @ 100 mls/hr IVPB Q8H [facility]; Protocol Last Admin: 11/21/17 12:38 Dose: 100 mls/hr Montelukast Sodium (Singulair) 10 mg PO HS [facility] Last Admin: 11/20/17 22:40 Dose: 10 mg Morphine Sulfate (Morphine) 1 mg IVP Q6 PRN PRN Reason: Pain, severe (8-10) Last Admin: 11/21/17 07:04 Dose: 1 mg Tamsulosin HCl (Flomax) 0.4 mg PO DAILY [facility] Last Admin: 11/21/17 10:07 Dose: 0.4 mg - Labs Labs: 11/21/17 06:48 11/21/17 06:48 PT 12.5 SECONDS (9.7-12.2) H 11/21/17 06:48 INR 1.1 11/21/17 06:48 APTT 24 SECONDS (21-34) D 11/21/17 06:48 - Constitutional Appears: Cachectic, Chronically Ill - Head Exam Head Exam: NORMOCEPHALIC - Eye Exam Eye Exam: absent: Scleral icterus - Respiratory Exam Respiratory Exam: NORMAL BREATHING PATTERN - Cardiovascular Exam Cardiovascular Exam: REGULAR RHYTHM - GI/Abdominal Exam GI & Abdominal Exam: Soft. absent: Distended, Tenderness Assessment and Plan (1) Ascites Assessment & Plan: R/O SBP. R/O cirrhositc ascites vs cardiac ascites. Echocardiogram result pending On antibiotics. Check fluid cultures ID consult following Status: Acute (2) Dyspnea Assessment & Plan: Pulmonary Fibrosis, chronic Status: Acute (3) Pulmonary embolism Status: Acute (4) HIV (human immunodeficiency virus infection) Assessment & Plan: ID management Status: Chronic (5) Choledocholithiasis Assessment & Plan: Sono suspects CBD stone. Likely chronic- LFTs WNL. Well tolerated. HIDA in progress Discussed with Dr Hoffman- he will see patient for ERCP consult Status: Acute
--- NOTE | 2017-11-21 16:30 | CP.PCM.PN ---
Subjective - Date & Time of Evaluation Date of Evaluation: 11/21/17 Time of Evaluation: 14:00 - Subjective Subjective: dictated Objective - Vital Signs/Intake and Output Vital Signs (last 24 hours): Temp Pulse Resp BP Pulse Ox 98.1 F 85 20 95/59 L 94 L 11/21/17 07:12 11/21/17 07:12 11/21/17 07:12 11/21/17 07:12 11/21/17 07:12 Intake and Output: 11/21/17 11/21/17 06:59 18:59 Intake Total 875 Output Total 4600 Balance -3725 - Medications Medications: Current Medications Acetylcysteine (Acetylcysteine 20%) 4 ml PO Q12H [facility] Last Admin: 11/20/17 22:41 Dose: 4 ml Albuterol/Ipratropium (Duoneb 3 Mg/0.5 Mg (3 Ml) Ud) 3 ml INH RQ6 [facility] Last Admin: 11/21/17 14:31 Dose: Not Given Albuterol/Ipratropium (Combivent Respimat) 2 puff IH RBID [facility] Heparin Sodium (Porcine) (Heparin) 5,000 units SC Q8 [facility] Last Admin: 11/21/17 14:48 Dose: Not Given Aztreonam 1 gm/ Sodium (Chloride) 100 mls @ 100 mls/hr IVPB Q8H [facility]; Protocol Last Admin: 11/21/17 14:48 Dose: Not Given Dextrose/Sodium Chloride (Dextrose 5%/0.45% Ns 1000 Ml) 1,000 mls @ 75 mls/hr IV .[id number] [facility] Last Admin: 11/21/17 02:13 Dose: Not Given Meropenem 500 mg/ Sodium (Chloride) 100 mls @ 100 mls/hr IVPB Q8H [facility]; Protocol Last Admin: 11/21/17 12:38 Dose: 100 mls/hr Montelukast Sodium (Singulair) 10 mg PO HS [facility] Last Admin: 11/20/17 22:40 Dose: 10 mg Morphine Sulfate (Morphine) 1 mg IVP Q6 PRN PRN Reason: Pain, severe (8-10) Last Admin: 11/21/17 07:04 Dose: 1 mg Tamsulosin HCl (Flomax) 0.4 mg PO DAILY [facility] Last Admin: 11/21/17 10:07 Dose: 0.4 mg - Labs Labs: 11/21/17 06:48 11/21/17 06:48 PT 12.5 SECONDS (9.7-12.2) H 11/21/17 06:48 INR 1.1 11/21/17 06:48 APTT 24 SECONDS (21-34) D 11/21/17 06:48
--- NOTE | 2017-11-21 17:20 | NM ---
Date of service: 11/21/2017 PROCEDURE: Nuclear Medicine Hepatobiliary Scan HISTORY: gallstones COMPARISON: November 20, 2017 abdominal ultrasound TECHNIQUE: 5.2 mCi of technetium 99m Mebrofenin was administered intravenously. Planar images of the abdomen were obtained at 5 min intervals to 60 mins. Delayed images were also obtained. FINDINGS: LIVER: Timely and homogenous uptake. COMMON BILE DUCT: identified at 30 mins. GALLBLADDER: identified at 3 hr SMALL BOWEL: Identified at 30 mins. IMPRESSION: Normal Hepatobiliary Scan. The cystic duct is patent.
--- NOTE | 2017-11-21 18:23 | CARD ---
APPROVED REPORT Date of service: 11/21/2017 EXAM: Two-dimensional and M-mode echocardiogram with Doppler and color Doppler. Other Information Quality : LimitedRhythm : NSR INDICATION Pericardial Effusion Dyspnea Pleural Effusion COPD M-Mode DIMENSIONS Left Atrium (MM)3.20 (2.5-4.0cm)Aortic Root3.72 (2.2-3.7cm) Aortic Cusp Exc.1.05 (1.5-2.0cm) Mitral Valve E/A ratio0.0 TDI E/Lateral E'0.0E/Medial E'0.0 Tricuspid Valve TR Peak [id number] Peak [id number] LEFT VENTRICLE The left ventricle is normal size. There is normal left ventricular wall thickness. The left ventricular function is normal. The left ventricular ejection fraction is within the normal range. Transmitral Doppler flow pattern is Grade I-abnormal relaxation pattern. RIGHT VENTRICLE The right ventricle is normal size. The right ventricle is hyperdynamic. ATRIA The left atrium size is normal. The right atrium size is normal. AORTIC VALVE The aortic valve is not well visualized. MITRAL VALVE The mitral valve is not well visualized. GREAT VESSELS The IVC was not visualized. PERICARDIAL EFFUSION There is a small loculated anterior pericardial effusion. <Conclusion> very poor Echo Window There is a small-moderate loculated anterior pericardial effusion.
[2017-11-21] MEDS: Albuterol-Ipratrop 20 mcg/actuation (4 g) IH SCH (19:33)
[2017-11-21] MEDS: Acetylcysteine 20% Inhal Soln (4ml) PO SCH (20:51)
--- NOTE | 2017-11-21 21:01 | CARD ---
APPROVED REPORT Date of service: 11/19/2017 EKG Measurement Heart [id number] <Conclusion> Normal sinus rhythm Low voltage QRS Right bundle branch block Abnormal ECG
--- NOTE | 2017-11-21 22:31 | PN ---
DATE: 11/21/2017 SUBJECTIVE: The patient's white count went to 31,000. He went for peritoneal tap and was seen also by the GI, and he has high white count of 31,000. He is afebrile. PHYSICAL EXAMINATION: VITAL SIGNS: T-max 98.1, pulse 85, blood pressure is 138/79 this morning, but now it is 95/59, needs to be monitored for hypotension, respirations are 22, saturations 94. HEENT: Head is atraumatic. NECK: Supple. LUNGS: Decreased breath sounds on bases, otherwise clear. HEART: S1 and S2 are regular. ABDOMEN: Just had a peritoneal tap. EXTREMITIES: Have no edema. LABORATORY DATA: Labs are noted. Labs show white count is 31.1, hemoglobin 12.1, hematocrit 38.3, and platelet count is 470. BUN is 49, creatinine is 1.6. ASSESSMENT AND PLAN: Since his white count has increased, we had earlier changed the antibiotic to meropenem. He is on Merrem 500 mg every 8 hours, and I left him on Azactam dose, and he was having procedure done. I am going to continue both of them and sending the culture reports. The patient also has human immunodeficiency disease. I called the pharmacy and they told me that he was on Biktarvy, and I am sure this is not on the formulary and actually brought from the patient's home. So that, he could be started on that, but at this time, I am not waiting for the peritoneal culture. If it reveals anything different, then we will follow and at this time, we will continue Merrem as well as Azactam. Daniel Fajardo MD
[2017-11-22 00:36] LABS: TOTAL PSA <0.1 ng/mL (< or = 4.0)
--- NOTE | 2017-11-22 00:52 | PN ---
DATE: 11/21/2017 SUBJECTIVE: The patient seen and examined at bedside. The patient is complaining of lower back pain, claiming that the morphine is not helping him. He is refusing nebulizer treatment. He wants the nebulizer treatment to be given through the mouthpiece, not via mask and requesting Combivent inhaler. Denies any new complaints. Events from overnight noted. The patient had only 400 mL of urine output overnight. The patient denies any new complaints. PHYSICAL EXAMINATION: GENERAL: Elderly male, lying in bed, in no acute distress. VITAL SIGNS: Blood pressure 100/61, pulse 80, respirations 20, temperature 97.9 degrees Fahrenheit, and O2 sat is 96% on 2 L nasal cannula. HEENT: Pupils equal, round, and reacting to light and accommodation. Extraocular muscles intact. No icterus. No pallor. No oral thrush. Dry mucous membranes. NECK: Supple. No JVD. LUNGS: Bilateral vesicular breath sounds. Bilateral basal rhonchi heard. CARDIOVASCULAR SYSTEM: S1 and S2 present, regular. ABDOMEN: Soft. Distended. Bowel sounds present. No guarding. No rigidity. No rebound tenderness noted. CENTRAL NERVOUS SYSTEM: Alert, awake, and oriented x3. No focal deficits noted. EXTREMITIES: No edema. Palpable peripheral pulses. MEDICATIONS: Include Mucomyst 4 mL p.o. every 12 hours, DuoNeb, Combivent, Azactam, IV fluids, D5 half normal saline at 75 mL an hour, heparin 5000 units subcu every 8 hours, meropenem 500 mg IV every 8 hours, Singulair 10 mg daily, morphine 1 mg IV every 6 hours p.r.n., and Flomax 0.4 mg p.o. daily. His intake was 1200 mL and output 300 mL overnight. LABORATORY DATA: Labs from this morning: WBC 31.1, hemoglobin 12.5, hematocrit 38.3, and platelets 470. Reticulocyte count 2.5. PT is 12.5, INR 1.1, and PTT 24. Sodium 141, potassium 4, chloride 102, bicarb 27, BUN 49, creatinine 1.6, glucose 138, hemoglobin A1c 5.6, calcium 8.9. Total protein 5.8, albumin 2.9. Phosphorus 5, magnesium 2.5. Iron 29, TIBC 197, iron saturation 15, ferritin is 88.3. AST is 25, ALT is 23. Alpha-fetoprotein 1.7. B12 of 777. Folate is 15.4. Tumor markers were all negative. ETHEL negative. Hepatitis serology negative. Mycoplasma negative. Blood cultures negative so far. Urine cultures negative. HIDA scan consistent with normal hepatobiliary scan, cystic duct is patent. ASSESSMENT AND PLAN: Elderly male with history of human immunodeficiency virus positive, on antiretroviral therapy; history of prostrate cancer; history of primary pulmonary hypertension; and idiopathic pulmonary fibrosis. Admitted for abdominal pain, distention, progressive worsening of shortness of breath, acute kidney injury, status post V/Q scan consistent with high probability for pulmonary embolism. CT angiography was negative for any pulmonary embolism. The patient was discontinued from heparin. An ultrasound of the abdomen consistent with ascites, common bile duct stone, and cholelithiasis with elevated white blood cell count, worsening today, increased to 31,000. For paracentesis by Interventional Radiology. For possible endoscopic retrograde cholangiopancreatography by Dr. Hoffman. As per Dr. Vasquez, we will increase pain medication. Follow up with Urology. Monitor renal function. Follow up with paracentesis results and cultures results. Antibiotics adjusted by Dr. Fajardo. We will continue with nebulizer treatment. Restart his antiretroviral therapy. We will add further recommendation as his clinical course progresses. Kimberly Haines MD
[2017-11-22] MEDS: Dextrose 5%/0.45% NS 1,000 ML IV SCH ×2 (03:24→16:40)
[2017-11-22] MEDS: Meropenem 500 MG in Sodium Chloride 0.9% 100 ML IVPB SCH ×3 (03:27→19:03)
[2017-11-22] MEDS: Aztreonam 1 GM in Sodium Chloride 0.9% 100 ML IVPB SCH ×3 (04:55→22:27)
--- NOTE | 2017-11-22 07:58 | CP.PCM.PN ---
Subjective - Date & Time of Evaluation Date of Evaluation: 11/22/17 Time of Evaluation: 07:40 - Subjective Subjective: f/u ascites, CBD stone Reports back pain Denies chills, CP, JORDAN, cough, hematuria, hemoptysis, RB, melena Objective - Vital Signs/Intake and Output Vital Signs (last 24 hours): Temp Pulse Resp BP Pulse Ox 97.6 F 73 18 106/72 98 11/21/17 23:59 11/22/17 05:25 11/22/17 05:25 11/22/17 05:25 11/21/17 23:59 Intake and Output: 11/22/17 11/22/17 06:59 18:59 Intake Total 1790 Output Total 300 Balance 1490 - Medications Medications: Current Medications Acetylcysteine (Acetylcysteine 20%) 4 ml PO Q12H [facility] Last Admin: 11/21/17 20:51 Dose: 4 ml Albuterol/Ipratropium (Duoneb 3 Mg/0.5 Mg (3 Ml) Ud) 3 ml INH RQ6 [facility] Last Admin: 11/21/17 20:17 Dose: 3 ml Albuterol/Ipratropium (Combivent Respimat) 2 puff IH RBID [facility] Last Admin: 11/21/17 19:33 Dose: Not Given Heparin Sodium (Porcine) (Heparin) 5,000 units SC Q8 [facility] Last Admin: 11/22/17 05:25 Dose: 5,000 units Aztreonam 1 gm/ Sodium (Chloride) 100 mls @ 100 mls/hr IVPB Q8H [facility]; Protocol Last Admin: 11/22/17 04:55 Dose: 100 mls/hr Dextrose/Sodium Chloride (Dextrose 5%/0.45% Ns 1000 Ml) 1,000 mls @ 75 mls/hr IV .[id number] [facility] Last Admin: 11/22/17 03:24 Dose: 75 mls/hr Meropenem 500 mg/ Sodium (Chloride) 100 mls @ 100 mls/hr IVPB Q8H [facility]; Protocol Last Admin: 11/22/17 03:27 Dose: 100 mls/hr Montelukast Sodium (Singulair) 10 mg PO HS [facility] Last Admin: 11/21/17 22:09 Dose: 10 mg Morphine Sulfate (Morphine) 1 mg IVP Q6 PRN PRN Reason: Pain, severe (8-10) Last Admin: 11/22/17 05:26 Dose: 1 mg Tamsulosin HCl (Flomax) 0.4 mg PO DAILY [facility] Last Admin: 11/21/17 10:07 Dose: 0.4 mg - Labs Labs: 11/21/17 06:48 11/21/17 06:48 PT 12.5 SECONDS (9.7-12.2) H 11/21/17 06:48 INR 1.1 11/21/17 06:48 APTT 24 SECONDS (21-34) D 11/21/17 06:48 - Constitutional Appears: Non-toxic - Respiratory Exam Respiratory Exam: Clear to Ausculation Bilateral - Cardiovascular Exam Cardiovascular Exam: RRR - GI/Abdominal Exam GI & Abdominal Exam: Soft, Normal Bowel Sounds. absent: Hyperactive Bowel Sounds, Mass - Neurological Exam Neurological Exam: Alert, Awake Assessment and Plan (1) Choledocholithiasis Assessment & Plan: Dr Hoffman consulted for CBD stone Status: Acute (2) Anemia Status: Acute (3) Ascites Assessment & Plan: s/p tap. On Abx Status: Acute (4) Leucocytosis Assessment & Plan: COnsider ascites, CBD stone. LFTs are not bad. Status: Acute (5) Primary pulmonary hypertension Status: Acute (6) Pulmonary embolism Status: Acute (7) HIV (human immunodeficiency virus infection) Status: Chronic
[2017-11-22] MEDS: Albuterol-Ipratrop 20 mcg/actuation (4 g) IH SCH ×2 (08:37→19:31)
[2017-11-22] MEDS: Albuterol-Ipratrop 3 mg / 0.5 (3 ml) UD INH SCH ×3 (08:37→19:29)
[2017-11-22] MEDS ORDERED: Glucagon Recombinant 1 mg Inj ONE (08:52)
[2017-11-22] MEDS ORDERED: Iohexol 240 (50 ml) ONE (09:28)
--- NOTE | 2017-11-22 10:56 | CP.PCM.PN ---
Subjective - Date & Time of Evaluation Date of Evaluation: 11/22/17 Time of Evaluation: 10:55 - Subjective Subjective: Progress note dictated # [id number] Objective - Vital Signs/Intake and Output Vital Signs (last 24 hours): Temp Pulse Resp BP Pulse Ox 97.7 F 78 20 114/75 98 11/22/17 07:59 11/22/17 07:59 11/22/17 07:59 11/22/17 07:59 11/22/17 07:59 Intake and Output: 11/22/17 11/22/17 06:59 18:59 Intake Total 1790 Output Total 300 Balance 1490 - Medications Medications: Current Medications Acetylcysteine (Acetylcysteine 20%) 4 ml PO Q12H [facility] Last Admin: 11/21/17 20:51 Dose: 4 ml Albuterol/Ipratropium (Duoneb 3 Mg/0.5 Mg (3 Ml) Ud) 3 ml INH RQ6 [facility] Last Admin: 11/22/17 08:37 Dose: Not Given Albuterol/Ipratropium (Combivent Respimat) 2 puff IH RBID [facility] Last Admin: 11/22/17 08:37 Dose: Not Given Heparin Sodium (Porcine) (Heparin) 5,000 units SC Q8 MAXINE Last Admin: 11/22/17 05:25 Dose: 5,000 units Aztreonam 1 gm/ Sodium (Chloride) 100 mls @ 100 mls/hr IVPB Q8H [facility]; Protocol Last Admin: 11/22/17 04:55 Dose: 100 mls/hr Dextrose/Sodium Chloride (Dextrose 5%/0.45% Ns 1000 Ml) 1,000 mls @ 75 mls/hr IV .[id number] MAXINE Last Admin: 11/22/17 03:24 Dose: 75 mls/hr Meropenem 500 mg/ Sodium (Chloride) 100 mls @ 100 mls/hr IVPB Q8H [facility]; Protocol Last Admin: 11/22/17 03:27 Dose: 100 mls/hr Montelukast Sodium (Singulair) 10 mg PO HS [facility] Last Admin: 11/21/17 22:09 Dose: 10 mg Morphine Sulfate (Morphine) 1 mg IVP Q6 PRN PRN Reason: Pain, severe (8-10) Last Admin: 11/22/17 05:26 Dose: 1 mg Tamsulosin HCl (Flomax) 0.4 mg PO DAILY [facility] Last Admin: 11/22/17 10:15 Dose: Not Given - Labs Labs: 11/21/17 06:48 11/21/17 06:48 PT 12.5 SECONDS (9.7-12.2) H 11/21/17 06:48 INR 1.1 11/21/17 06:48 APTT 24 SECONDS (21-34) D 11/21/17 06:48
[2017-11-22] MEDS ORDERED: Propofol 10 mg/ml Inj (20 ML) ONE (11:09)
[2017-11-22] MEDS ORDERED: Midazolam 2 MG/2 ML VIAL ONE (11:09)
[2017-11-22] MEDS ORDERED: Lidocaine 4% (Laryng-O-Jet) Kit MM ONE (11:12)
[2017-11-22 11:42] LABS: % CD4 (T HELPER CELL) 12 Percent (30-61); % CD8 (SUPPRESSOR T CELL) 25 Percent (12-42); ABSOLUTE CD3 CELLS 810 Cells/mcL (840-3060); ABSOLUTE CD4 CELLS 259 Cells/mcL (490-1740); ABSOLUTE CD8 CELLS 541 Cells/mcL (180-1170); ABSOLUTE LYMPHOCYTES 2186 Cells/mcL (850-3900); HELPER/SUPPRESSOR RATIO 0.48 Ratio (0.86-5.00)
[2017-11-22] MEDS ORDERED: Esmolol 100 mg/10ml Inj IV ONE (11:48)
--- NOTE | 2017-11-22 12:52 | CP.PCM.PN ---
Subjective - Date & Time of Evaluation Date of Evaluation: 11/22/17 Time of Evaluation: 12:52 - Subjective Subjective: Pulmonary Follow up, Covering Dr Begum The patient was Seen/interviewed and examined by me at the bedside, Medical records reviewed and Management issues were discussed and formulated with the house staff. Events reviewed Objective - Vital Signs/Intake and Output Vital Signs (last 24 hours): Temp Pulse Resp BP Pulse Ox 97.7 F 78 20 114/75 98 11/22/17 11:18 11/22/17 11:18 11/22/17 11:18 11/22/17 11:18 11/22/17 11:18 Intake and Output: 11/22/17 11/22/17 06:59 18:59 Intake Total 1790 0 Output Total 300 100 Balance 1490 -100 - Medications Medications: Current Medications Acetylcysteine (Acetylcysteine 20%) 4 ml PO Q12H [facility] Last Admin: 11/21/17 20:51 Dose: 4 ml Albuterol Sulfate (Albuterol 0.083% Inhal Megan (2.5 Mg/3 Ml) Ud) 2.5 mg INH ONCE ONE Stop: 11/22/17 12:17 Albuterol/Ipratropium (Duoneb 3 Mg/0.5 Mg (3 Ml) Ud) 3 ml INH RQ6 [facility] Last Admin: 11/22/17 08:37 Dose: Not Given Albuterol/Ipratropium (Combivent Respimat) 2 puff IH RBID [facility] Last Admin: 11/22/17 08:37 Dose: Not Given Heparin Sodium (Porcine) (Heparin) 5,000 units SC Q8 [facility] Last Admin: 11/22/17 05:25 Dose: 5,000 units Aztreonam 1 gm/ Sodium (Chloride) 100 mls @ 100 mls/hr IVPB Q8H [facility]; Protocol Last Admin: 11/22/17 04:55 Dose: 100 mls/hr Dextrose/Sodium Chloride (Dextrose 5%/0.45% Ns 1000 Ml) 1,000 mls @ 75 mls/hr IV .[id number] [facility] Last Admin: 11/22/17 03:24 Dose: 75 mls/hr Meropenem 500 mg/ Sodium (Chloride) 100 mls @ 100 mls/hr IVPB Q8H [facility]; Protocol Last Admin: 11/22/17 03:27 Dose: 100 mls/hr Metoclopramide HCl (Reglan) 5 mg IVP Q8H [facility] Montelukast Sodium (Singulair) 10 mg PO HS [facility] Last Admin: 11/21/17 22:09 Dose: 10 mg Morphine Sulfate (Morphine) 1 mg IVP Q6 PRN PRN Reason: Pain, severe (8-10) Last Admin: 11/22/17 05:26 Dose: 1 mg Tamsulosin HCl (Flomax) 0.4 mg PO DAILY [facility] Last Admin: 11/22/17 10:15 Dose: Not Given - Labs Labs: 11/21/17 06:48 11/21/17 06:48 PT 12.5 SECONDS (9.7-12.2) H 11/21/17 06:48 INR 1.1 11/21/17 06:48 APTT 24 SECONDS (21-34) D 11/21/17 06:48 Assessment and Plan (1) Community acquired pneumonia Status: Acute (2) Bronchiectasis Status: Acute (3) HIV (human immunodeficiency virus infection) Status: Chronic (4) Pulmonary hypertension Status: Chronic (5) Asthma Status: Acute (6) Ascites Status: Acute (7) Pulmonary embolism Status: Acute
[2017-11-22] MEDS ORDERED: Albuterol 0.083% Inhal Sol (2.5 mg/3 mL) UD INH ONE (13:30)
[2017-11-22 14:24] LABS: BASO # 0.1 K/uL (0.0-0.2); BASO % 0.2 % (0.0-2.0); EOS # 0.4 K/uL (0.0-0.7); EOS % 0.9 % (0.0-4.0); HEMOGLOBIN 12.5 g/dL (12.0-18.0); LYMPH # 2.6 K/uL (1.0-4.3); MEAN CELL VOLUME 94.6 fL (80.0-94.0); MEAN CORPUSCULAR HEMOGLOBIN 31.1 pg (27.0-31.0); MEAN CORPUSCULAR HGB CONC 32.9 g/dL (33.0-37.0); MEAN PLATELET VOLUME 7.8 fL (7.2-11.7); MONO # 2.7 K/uL (0.0-0.8); MONO % 6.3 % (0.0-10.0); NEUT # 37.3 K/uL (1.8-7.0); NEUT % 86.6 % (50.0-75.0); NRBC % 0.2 % (0.0-2.0); PLATELET COUNT 476 K/uL (130-400); RBC 4.01 Mil/uL (4.40-5.90); RED CELL DISTRIBUTION WIDTH 15.7 % (11.5-14.5)
[2017-11-22 14:29] LABS: INR 1.1
[2017-11-22 14:34] LABS: WHITE BLOOD COUNT 43.1 K/uL (4.8-10.8)
--- NOTE | 2017-11-22 14:53 | RAD ---
Date of service: 11/22/2017 PROCEDURE: Intraoperative Fluoroscopy. HISTORY: PAPILLA STENOSIS AND SPASM FINDINGS: Fluoroscopic assistance was provided for ERCP. Please refer to the operative report from TRELL Saldana. Total fluoroscopic time (continuous mode) utilized during the procedure 12.6 (seconds). Total exam DLP: 2.38 (mGy).
[2017-11-22 14:58] LABS: ALB/GLOB RATIO 0.9 (1.0-2.1); ALBUMIN 2.5 g/dL (3.5-5.0); CALCIUM 8.7 mg/dl (8.6-10.4)
[2017-11-22 15:20] LABS: BANDS 4 % (0-2); LYMPHOCYTE 2 % (20-40); MONOCYTE 3 % (0-10); NEUTROPHIL 91 % (50-75); TOTAL CELLS COUNTED 100
[2017-11-22 15:21] LABS: ANISOCYTOSIS SLIGHT; PLATELET ESTIMATE SLIGHTLY INCREASED (NORMAL)
[2017-11-22 15:24] LABS: POLYCHROMIC SLIGHT
[2017-11-22] MEDS ORDERED: Sodium Chloride 0.9% 1,000 ML IV ONE (15:57)
--- NOTE | 2017-11-22 16:42 | PCM.URO ---
Urology Progress Note - Objective Lab Studies: Reviewed (see previous dictated note for now no gu changes planned) Lab Results Last 24 Hours: Laboratory Results - last 24 hr 11/19/17 11/19/17 11/21/17 09:56 21:46 06:48 WBC RBC Hgb Hct MCV MCH MCHC RDW Plt Count MPV Neut % (Auto) Lymph % (Auto) Wells % (Auto) Eos % (Auto) Baso % (Auto) Neut # (Auto) Lymph # (Auto) Wells # (Auto) Eos # (Auto) Baso # (Auto) Neutrophils % (Manual) Band Neutrophils % Lymphocytes % (Manual) Monocytes % (Manual) Platelet Estimate Polychromasia Anisocytosis (manual) PT INR APTT Sodium Potassium Chloride Carbon Dioxide Anion Gap BUN Creatinine Est GFR ( Amer) Est GFR (Non-Af Amer) Random Glucose Calcium Phosphorus Magnesium Total Bilirubin AST ALT Alkaline Phosphatase Total Protein Albumin Globulin Albumin/Globulin Ratio Alpha Fetoprotein Carcinoembryonic Ag CA 19-9 Antigen Free PSA 0.1 % Free PSA Unable to calculate Total PSA <0.1 Anti-Mitochondrial Ab Negative Absolute Lymphs (Flow) 2186 % CD3 Cells 37 L Absolute CD3 Count 810 L % CD4 Cells 12 L Absolute CD4 Count 259 L T-Help/Suppress Ratio 0.48 L % CD8 Cells 25 Absolute CD8 Count 541 11/22/17 11/22/17 11/22/17 14:14 14:14 14:14 WBC 43.1 H* RBC 4.01 L Hgb 12.5 Hct 37.9 MCV 94.6 H MCH 31.1 H MCHC 32.9 L RDW 15.7 H Plt Count 476 H MPV 7.8 Neut % (Auto) 86.6 H Lymph % (Auto) 6.0 L Wells % (Auto) 6.3 Eos % (Auto) 0.9 Baso % (Auto) 0.2 Neut # (Auto) 37.3 H Lymph # (Auto) 2.6 Wells # (Auto) 2.7 H Eos # (Auto) 0.4 Baso # (Auto) 0.1 Neutrophils % (Manual) 91 H Band Neutrophils % 4 H Lymphocytes % (Manual) 2 L Monocytes % (Manual) 3 Platelet Estimate Slightly increased H Polychromasia Slight Anisocytosis (manual) Slight PT 12.0 INR 1.1 APTT 25 Sodium 136 Potassium 4.3 Chloride 101 Carbon Dioxide 27 Anion Gap 13 BUN 57 H Creatinine 1.5 Est GFR ( Amer) 54 Est GFR (Non-Af Amer) 45 Random Glucose 140 H Calcium 8.7 Phosphorus 4.3 Magnesium 2.5 H Total Bilirubin 0.2 AST 23 ALT 19 L Alkaline Phosphatase 155 H Total Protein 5.2 L Albumin 2.5 L Globulin 2.7 Albumin/Globulin Ratio 0.9 L Alpha Fetoprotein Carcinoembryonic Ag 0.7 CA 19-9 Antigen 1.5 Free PSA % Free PSA Total PSA Anti-Mitochondrial Ab Absolute Lymphs (Flow) % CD3 Cells Absolute CD3 Count % CD4 Cells Absolute CD4 Count T-Help/Suppress Ratio % CD8 Cells Absolute CD8 Count 11/22/17 14:14 WBC RBC Hgb Hct MCV MCH MCHC RDW Plt Count MPV Neut % (Auto) Lymph % (Auto) Wells % (Auto) Eos % (Auto) Baso % (Auto) Neut # (Auto) Lymph # (Auto) Wells # (Auto) Eos # (Auto) Baso # (Auto) Neutrophils % (Manual) Band Neutrophils % Lymphocytes % (Manual) Monocytes % (Manual) Platelet Estimate Polychromasia Anisocytosis (manual) PT INR APTT Sodium Potassium Chloride Carbon Dioxide Anion Gap BUN Creatinine Est GFR ( Amer) Est GFR (Non-Af Amer) Random Glucose Calcium Phosphorus Magnesium Total Bilirubin AST ALT Alkaline Phosphatase Total Protein Albumin Globulin Albumin/Globulin Ratio Alpha Fetoprotein 1.5 Carcinoembryonic Ag CA 19-9 Antigen Free PSA % Free PSA Total PSA Anti-Mitochondrial Ab Absolute Lymphs (Flow) % CD3 Cells Absolute CD3 Count % CD4 Cells Absolute CD4 Count T-Help/Suppress Ratio % CD8 Cells Absolute CD8 Count Intake & Output: Intake & Output 11/21/17 11/22/17 11/22/17 18:59 06:59 18:59 Intake Total 875 1790 675 Output Total 4600 300 150 Balance -3725 1490 525 Intake: IV 225 Intake, IV Amount 575 1590 300 Right Forearm 575 1590 300 Oral 300 200 150 Output: Urine 100 300 150 Urethral (Dhaliwal) 100 300 50 Other 4500 Other: # Bowel Movements 0 Vital Signs: Vital Signs - 24 hr 11/21/17 11/22/17 11/22/17 23:59 05:25 07:59 Temperature 97.6 F 97.7 F Pulse Rate 75 73 78 Respiratory 20 18 20 Rate Blood Pressure 109/67 106/72 114/75 O2 Sat by Pulse 98 98 Oximetry 11/22/17 11/22/17 11/22/17 11:18 12:15 12:30 Temperature 97.7 F 98.7 F 98.7 F Pulse Rate 78 91 H 91 H Respiratory 20 15 18 Rate Blood Pressure 114/75 116/55 L 96/65 L O2 Sat by Pulse 98 100 100 Oximetry 11/22/17 11/22/17 11/22/17 12:40 12:50 13:14 Temperature 98.7 F 98.7 F Pulse Rate 93 H 93 H 98 H Respiratory 18 15 20 Rate Blood Pressure 106/65 110/57 L 115/77 O2 Sat by Pulse 100 100 95 Oximetry 11/22/17 11/22/17 14:42 15:00 Temperature 97.4 F L Pulse Rate 89 120 H Respiratory 20 Rate Blood Pressure 111/59 L 100/70 O2 Sat by Pulse 100 Oximetry
--- NOTE | 2017-11-22 17:37 | CP.PCM.CON ---
History of Present Illness - History of Present Illness History of Present Illness: 82 yo Hm with pmh/o Hiv+ ve, copd, oa, IPF, primary Pul. HTN, prostate ca, DJD, s/p left TKR in 09/2017 was admitted with cc/o sob, cough, STEVENSON, abdominal distention, decreased po intake, decreased uop. pt was found to have ascites , elevtaed D-dimer s/p vq scan , with probabilty and and then pt under went Ct angiogram of [place] , which was negative. s/p paracentesis about 4.5 lit. pt c/o not feeling well, with increasing wbc and ascitic fluid c/w SBP. renal consult is requested for evaluation of decreased uop. s/p bolanos cath placement by urologist and drained about 15-20 ml. pt denies any cp, palpiattaion, nausea, vomitings, no edema, no dysuria pt's base line s.cr is 0.8-0.9 Review of Systems - Constitutional Constitutional: As Per HPI, Anorexia, Fatigue, Malaise, Weakness - EENT Eyes: As Per HPI Ears: As Per HPI Nose/Mouth/Throat: As Per HPI - Cardiovascular Cardiovascular: As Per HPI - Respiratory Respiratory: Cough, Dyspnea, Dyspnea on Exertion - Gastrointestinal Gastrointestinal: As Per HPI, Constipation Additional comments: abdominal distention - Genitourinary Genitourinary: As Per HPI - Reproductive: Male Reproductive:Male: As Per HPI - Musculoskeletal Musculoskeletal: As Per HPI - Neurological Neurological: As Per HPI - Endocrine Endocrine: As Per HPI - Hematologic/Lymphatic Hematologic: As Per HPI Past Patient History - Past Medical History & Family History Past Medical History?: Yes - Past Social History Smoking Status: Current Some Days Smoker - CARDIAC Hx Cardia Arrhythmia: No Hx Hypertension: Yes (Denies) Hx Pacemaker: No - PULMONARY Hx Asthma: Yes Hx Emphysema: Yes Hx Pneumonia: Yes - NEUROLOGICAL Hx Neurological Disorder: No - HEENT Hx HEENT Problems: No Hx Cataracts: Yes - RENAL Hx Chronic Kidney Disease: No - ENDOCRINE/METABOLIC Hx Endocrine Disorders: No - HEMATOLOGICAL/ONCOLOGICAL Hx AIDS: Yes Hx Human Immunodeficiency Virus (HIV): Yes - INTEGUMENTARY Hx Dermatological Problems: No - MUSCULOSKELETAL/RHEUMATOLOGICAL Hx Arthritis: Yes Hx Osteoarthritis: Yes - GASTROINTESTINAL Hx Gastrointestinal Disorders: Yes Hx Bowel Surgery: Yes (Hernia) Hx Colostomy: Yes Hx Constipation: Yes Hx Gastritis: Yes Hx Liver Failure: No - GENITOURINARY/GYNECOLOGICAL Hx Genitourinary Disorders: Yes Hx Prostate Problems: Yes - PSYCHIATRIC Hx Substance Use: No - SURGICAL HISTORY Hx Surgeries: Yes Hx Cataract Extraction: Yes Hx Eye Surgery: Yes Hx Herniorrhaphy: Yes Hx Orthopedic Surgery: Yes (Left knee) Other/Comment: UNKNOWN ABDOMINAL SURGERY - ANESTHESIA Hx Anesthesia: Yes Hx Anesthesia Reactions: No Hx Malignant Hyperthermia: No Meds Allergies/Adverse Reactions: Allergies Allergy/AdvReac Type Severity Reaction Status Date / Time No Known Allergies Allergy Verified 11/19/17 08:24 - Medications Medications: Current Medications Acetylcysteine (Acetylcysteine 20%) 4 ml PO Q12H [facility] Last Admin: 11/21/17 20:51 Dose: 4 ml Albuterol/Ipratropium (Duoneb 3 Mg/0.5 Mg (3 Ml) Ud) 3 ml INH RQ6 [facility] Last Admin: 11/22/17 14:26 Dose: Not Given Albuterol/Ipratropium (Combivent Respimat) 2 puff IH RBID [facility] Last Admin: 11/22/17 08:37 Dose: Not Given Heparin Sodium (Porcine) (Heparin) 5,000 units SC Q8 [facility] Last Admin: 11/22/17 13:32 Dose: 5,000 units Aztreonam 1 gm/ Sodium (Chloride) 100 mls @ 100 mls/hr IVPB Q8H [facility]; Protocol Last Admin: 11/22/17 14:40 Dose: 100 mls/hr Dextrose/Sodium Chloride (Dextrose 5%/0.45% Ns 1000 Ml) 1,000 mls @ 75 mls/hr IV .[id number] [facility] Last Admin: 11/22/17 16:40 Dose: Not Given Meropenem 500 mg/ Sodium (Chloride) 100 mls @ 100 mls/hr IVPB Q8H [facility]; Protocol Last Admin: 11/22/17 13:12 Dose: 100 mls/hr Sodium Chloride (Sodium Chloride 0.9%) 1,000 mls @ 500 mls/hr IV .Q2H ONE Stop: 11/22/17 17:56 Last Admin: 11/22/17 16:19 Dose: 500 mls/hr Metoclopramide HCl (Reglan) 5 mg IVP Q8H [facility] Last Admin: 11/22/17 14:19 Dose: 5 mg Montelukast Sodium (Singulair) 10 mg PO HS [facility] Last Admin: 11/21/17 22:09 Dose: 10 mg Morphine Sulfate (Morphine) 1 mg IVP Q6 PRN PRN Reason: Pain, severe (8-10) Last Admin: 11/22/17 16:19 Dose: 1 mg Tamsulosin HCl (Flomax) 0.4 mg PO DAILY [facility] Last Admin: 11/22/17 13:40 Dose: 0.4 mg Physical Exam - Constitutional Appears: No Acute Distress - Head Exam Head Exam: ATRAUMATIC, NORMAL INSPECTION, NORMOCEPHALIC - Eye Exam Eye Exam: EOMI, Normal appearance, PERRL Pupil Exam: NORMAL ACCOMODATION - ENT Exam ENT Exam: Mucous Membranes Dry - Neck Exam Neck exam: Positive for: Full Rom, Normal Inspection - Respiratory Exam Respiratory Exam: Clear to Auscultation Bilateral, NORMAL BREATHING PATTERN - Cardiovascular Exam Cardiovascular Exam: REGULAR RHYTHM, +S1, +S2 - GI/Abdominal Exam GI & Abdominal Exam: Normal Bowel Sounds, Soft - Neurological Exam Neurological exam: Alert, CN II-XII Intact, Normal Gait, Oriented x3 - Psychiatric Exam Psychiatric exam: Normal Mood - Skin Skin Exam: Dry, Intact, Normal Color Results - Vital Signs Recent Vital Signs: Last Vital Signs Temp 97.4 F L 11/22/17 15:00 Pulse 120 H 11/22/17 15:00 Resp 20 11/22/17 15:00 BP 100/70 11/22/17 15:00 Pulse Ox 100 11/22/17 15:00 - Labs Result Diagrams: 11/22/17 14:14 11/22/17 14:14 Labs: Laboratory Results - last 24 hr 11/19/17 11/19/17 11/21/17 09:56 21:46 06:48 WBC RBC Hgb Hct MCV MCH MCHC RDW Plt Count MPV Neut % (Auto) Lymph % (Auto) Castro % (Auto) Eos % (Auto) Baso % (Auto) Neut # (Auto) Lymph # (Auto) Castro # (Auto) Eos # (Auto) Baso # (Auto) Neutrophils % (Manual) Band Neutrophils % Lymphocytes % (Manual) Monocytes % (Manual) Platelet Estimate Polychromasia Anisocytosis (manual) PT INR APTT Sodium Potassium Chloride Carbon Dioxide Anion Gap BUN Creatinine Est GFR ( Amer) Est GFR (Non-Af Amer) Random Glucose Calcium Phosphorus Magnesium Total Bilirubin AST ALT Alkaline Phosphatase Total Protein Albumin Globulin Albumin/Globulin Ratio Alpha Fetoprotein Carcinoembryonic Ag CA 19-9 Antigen Free PSA 0.1 % Free PSA Unable to calculate Total PSA <0.1 Anti-Mitochondrial Ab Negative Absolute Lymphs (Flow) 2186 % CD3 Cells 37 L Absolute CD3 Count 810 L % CD4 Cells 12 L Absolute CD4 Count 259 L T-Help/Suppress Ratio 0.48 L % CD8 Cells 25 Absolute CD8 Count 541 11/22/17 11/22/17 11/22/17 14:14 14:14 14:14 WBC 43.1 H* RBC 4.01 L Hgb 12.5 Hct 37.9 MCV 94.6 H MCH 31.1 H MCHC 32.9 L RDW 15.7 H Plt Count 476 H MPV 7.8 Neut % (Auto) 86.6 H Lymph % (Auto) 6.0 L Castro % (Auto) 6.3 Eos % (Auto) 0.9 Baso % (Auto) 0.2 Neut # (Auto) 37.3 H Lymph # (Auto) 2.6 Castro # (Auto) 2.7 H Eos # (Auto) 0.4 Baso # (Auto) 0.1 Neutrophils % (Manual) 91 H Band Neutrophils % 4 H Lymphocytes % (Manual) 2 L Monocytes % (Manual) 3 Platelet Estimate Slightly increased H Polychromasia Slight Anisocytosis (manual) Slight PT 12.0 INR 1.1 APTT 25 Sodium 136 Potassium 4.3 Chloride 101 Carbon Dioxide 27 Anion Gap 13 BUN 57 H Creatinine 1.5 Est GFR ( Amer) 54 Est GFR (Non-Af Amer) 45 Random Glucose 140 H Calcium 8.7 Phosphorus 4.3 Magnesium 2.5 H Total Bilirubin 0.2 AST 23 ALT 19 L Alkaline Phosphatase 155 H Total Protein 5.2 L Albumin 2.5 L Globulin 2.7 Albumin/Globulin Ratio 0.9 L Alpha Fetoprotein Carcinoembryonic Ag 0.7 CA 19-9 Antigen 1.5 Free PSA % Free PSA Total PSA Anti-Mitochondrial Ab Absolute Lymphs (Flow) % CD3 Cells Absolute CD3 Count % CD4 Cells Absolute CD4 Count T-Help/Suppress Ratio % CD8 Cells Absolute CD8 Count 11/22/17 14:14 WBC RBC Hgb Hct MCV MCH MCHC RDW Plt Count MPV Neut % (Auto) Lymph % (Auto) Castro % (Auto) Eos % (Auto) Baso % (Auto) Neut # (Auto) Lymph # (Auto) Castro # (Auto) Eos # (Auto) Baso # (Auto) Neutrophils % (Manual) Band Neutrophils % Lymphocytes % (Manual) Monocytes % (Manual) Platelet Estimate Polychromasia Anisocytosis (manual) PT INR APTT Sodium Potassium Chloride Carbon Dioxide Anion Gap BUN Creatinine Est GFR ( Amer) Est GFR (Non-Af Amer) Random Glucose Calcium Phosphorus Magnesium Total Bilirubin AST ALT Alkaline Phosphatase Total Protein Albumin Globulin Albumin/Globulin Ratio Alpha Fetoprotein 1.5 Carcinoembryonic Ag CA 19-9 Antigen Free PSA % Free PSA Total PSA Anti-Mitochondrial Ab Absolute Lymphs (Flow) % CD3 Cells Absolute CD3 Count % CD4 Cells Absolute CD4 Count T-Help/Suppress Ratio % CD8 Cells Absolute CD8 Count Assessment & Plan - Assessment and Plan (Free Text) Assessment: 82 yo HM with pmh /o hiv+ ve, copd, IPF, primary pul. htn, oa, djd, ascites, s/p left TKR , ascites, with increased bun/cr, 1. Renal failure, most likely BERNARDO, c/w prerenal azotemia 2. Ascites 3. SBP 4. HIV+ 5. Dehydration check urine lytes,osm, creatinine agree with ivf NS 1 lit bolus, then will add ns at 70 ml/hr strict i/o's bmp in am c/w iv abx f/u with ascitic fluid c/s
[2017-11-22] MEDS ORDERED: Sodium Chloride 0.9% 1,000 ML IV SCH (17:45)
[2017-11-22] MEDS: Albumin Human 25% (12.5 gm/50 ml) IV SCH (18:37)
--- NOTE | 2017-11-22 19:14 | CP.PCM.PN ---
Subjective - Date & Time of Evaluation Date of Evaluation: 11/21/17 Time of Evaluation: 19:00 - Subjective Subjective: Appears comfortable Objective - Vital Signs/Intake and Output Vital Signs (last 24 hours): Temp Pulse Resp BP Pulse Ox 97.4 F L 120 H 20 100/70 100 11/22/17 15:00 11/22/17 15:00 11/22/17 15:00 11/22/17 15:00 11/22/17 15:00 Intake and Output: 11/22/17 11/23/17 18:59 06:59 Intake Total 675 Output Total 150 Balance 525 - Medications Medications: Current Medications Acetylcysteine (Acetylcysteine 20%) 4 ml PO Q12H [facility] Last Admin: 11/21/17 20:51 Dose: 4 ml Albumin Human (Albumin Human 25% (12.5 Gm/50 Ml)) 12.5 gm IV Q8H [facility]INE Stop: 11/23/17 18:31 Last Admin: 11/22/17 18:37 Dose: 12.5 gm Albuterol/Ipratropium (Duoneb 3 Mg/0.5 Mg (3 Ml) Ud) 3 ml INH RQ6 [facility] Last Admin: 11/22/17 14:26 Dose: Not Given Albuterol/Ipratropium (Combivent Respimat) 2 puff IH RBID [facility] Last Admin: 11/22/17 08:37 Dose: Not Given Heparin Sodium (Porcine) (Heparin) 5,000 units SC Q8 [facility] Last Admin: 11/22/17 13:32 Dose: 5,000 units Aztreonam 1 gm/ Sodium (Chloride) 100 mls @ 100 mls/hr IVPB Q8H [facility]; Protocol Last Admin: 11/22/17 14:40 Dose: 100 mls/hr Dextrose/Sodium Chloride (Dextrose 5%/0.45% Ns 1000 Ml) 1,000 mls @ 75 mls/hr IV .[id number] [facility] Last Admin: 11/22/17 16:40 Dose: Not Given Meropenem 500 mg/ Sodium (Chloride) 100 mls @ 100 mls/hr IVPB Q8H [facility]; Protocol Last Admin: 11/22/17 19:03 Dose: 100 mls/hr Sodium Chloride (Sodium Chloride 0.9%) 1,000 mls @ 70 mls/hr IV .[id number] [facility] Last Admin: 11/22/17 18:36 Dose: 70 mls/hr Metoclopramide HCl (Reglan) 5 mg IVP Q8H [facility] Last Admin: 11/22/17 14:19 Dose: 5 mg Montelukast Sodium (Singulair) 10 mg PO HS [facility] Last Admin: 11/21/17 22:09 Dose: 10 mg Morphine Sulfate (Morphine) 1 mg IVP Q6 PRN PRN Reason: Pain, severe (8-10) Last Admin: 11/22/17 16:19 Dose: 1 mg Tamsulosin HCl (Flomax) 0.4 mg PO DAILY [facility] Last Admin: 11/22/17 13:40 Dose: 0.4 mg - Labs Labs: 11/22/17 14:14 11/22/17 14:14 PT 12.0 SECONDS (9.7-12.2) 11/22/17 14:14 INR 1.1 11/22/17 14:14 APTT 25 SECONDS (21-34) 11/22/17 14:14 - Head Exam Head Exam: ATRAUMATIC - Eye Exam Eye Exam: Normal appearance - ENT Exam ENT Exam: Mucous Membranes Dry - Respiratory Exam Respiratory Exam: NORMAL BREATHING PATTERN - Cardiovascular Exam Cardiovascular Exam: +S1, +S2 - GI/Abdominal Exam GI & Abdominal Exam: Normal Bowel Sounds Assessment and Plan (1) Leucocytosis Assessment & Plan: on antibiotics r/o SBP choledocholilithiasis; ERCP evaluation Status: Acute (2) Anemia Assessment & Plan: renal disease, chronic disease Status: Acute
--- NOTE | 2017-11-22 19:16 | CP.PCM.PN ---
Subjective - Date & Time of Evaluation Date of Evaluation: 11/22/17 Time of Evaluation: 17:00 - Subjective Subjective: Appears comfortable. Objective - Vital Signs/Intake and Output Vital Signs (last 24 hours): Temp Pulse Resp BP Pulse Ox 97.4 F L 120 H 20 100/70 100 11/22/17 15:00 11/22/17 15:00 11/22/17 15:00 11/22/17 15:00 11/22/17 15:00 Intake and Output: 11/22/17 11/23/17 18:59 06:59 Intake Total 675 Output Total 150 Balance 525 - Medications Medications: Current Medications Acetylcysteine (Acetylcysteine 20%) 4 ml PO Q12H [facility] Last Admin: 11/21/17 20:51 Dose: 4 ml Albumin Human (Albumin Human 25% (12.5 Gm/50 Ml)) 12.5 gm IV Q8H [facility] Stop: 11/23/17 18:31 Last Admin: 11/22/17 18:37 Dose: 12.5 gm Albuterol/Ipratropium (Duoneb 3 Mg/0.5 Mg (3 Ml) Ud) 3 ml INH RQ6 [facility] Last Admin: 11/22/17 14:26 Dose: Not Given Albuterol/Ipratropium (Combivent Respimat) 2 puff IH RBID [facility] Last Admin: 11/22/17 08:37 Dose: Not Given Heparin Sodium (Porcine) (Heparin) 5,000 units SC Q8 [facility] Last Admin: 11/22/17 13:32 Dose: 5,000 units Aztreonam 1 gm/ Sodium (Chloride) 100 mls @ 100 mls/hr IVPB Q8H [facility]; Protocol Last Admin: 11/22/17 14:40 Dose: 100 mls/hr Dextrose/Sodium Chloride (Dextrose 5%/0.45% Ns 1000 Ml) 1,000 mls @ 75 mls/hr IV .[id number] [facility] Last Admin: 11/22/17 16:40 Dose: Not Given Meropenem 500 mg/ Sodium (Chloride) 100 mls @ 100 mls/hr IVPB Q8H [facility]; Protocol Last Admin: 11/22/17 19:03 Dose: 100 mls/hr Sodium Chloride (Sodium Chloride 0.9%) 1,000 mls @ 70 mls/hr IV .[id number] [facility] Last Admin: 11/22/17 18:36 Dose: 70 mls/hr Metoclopramide HCl (Reglan) 5 mg IVP Q8H [facility] Last Admin: 11/22/17 19:14 Dose: 5 mg Montelukast Sodium (Singulair) 10 mg PO HS [facility] Last Admin: 11/21/17 22:09 Dose: 10 mg Morphine Sulfate (Morphine) 1 mg IVP Q6 PRN PRN Reason: Pain, severe (8-10) Last Admin: 11/22/17 16:19 Dose: 1 mg Tamsulosin HCl (Flomax) 0.4 mg PO DAILY [facility] Last Admin: 11/22/17 13:40 Dose: 0.4 mg - Labs Labs: 11/22/17 14:14 11/22/17 14:14 PT 12.0 SECONDS (9.7-12.2) 11/22/17 14:14 INR 1.1 11/22/17 14:14 APTT 25 SECONDS (21-34) 11/22/17 14:14 - Head Exam Head Exam: ATRAUMATIC - Eye Exam Eye Exam: Normal appearance - ENT Exam ENT Exam: Mucous Membranes Dry - Respiratory Exam Respiratory Exam: NORMAL BREATHING PATTERN - Cardiovascular Exam Cardiovascular Exam: +S1, +S2 - GI/Abdominal Exam GI & Abdominal Exam: Normal Bowel Sounds Assessment and Plan (1) Leucocytosis Assessment & Plan: on antibiotics rule out SBP CBD stone; ERCP evaluation Status: Acute (2) Anemia Assessment & Plan: anemia of CKD and chronic disease. Status: Acute
[2017-11-22] MEDS: Acetylcysteine 20% Inhal Soln (4ml) PO SCH (19:54)
[2017-11-23] MEDS ORDERED: Vancomycin 1 gm/NS 200 ml 1 GM/200 ML BAG IVPB ONE (01:00)
--- NOTE | 2017-11-23 02:01 | PN ---
DATE: 11/22/2017 SUBJECTIVE: The patient was seen and examined in endoscopy unit. The patient was waiting for ERCP. The patient was complaining of low back pain and requesting the Dhaliwal catheter to be removed, claming decreased urine output. Denies any new complaints. Denies any shortness of breath or wheezing. PHYSICAL EXAMINATION: GENERAL: Elderly male, lying in bed, in no acute distress. VITAL SIGNS: Blood pressure 111/59, pulse 89, respirations 20, temperature 98.7 degrees Fahrenheit, O2 sat 95% on nasal cannula. HEENT: Pupils equal, round, and reacting to light and accommodation. Extraocular muscles intact. No icterus. No pallor. No oral thrush. No pharyngeal congestion. NECK: Supple. No JVD. LUNGS: Bilateral vesicular breath sounds. No wheezing. Basal rhonchi heard. CVS: S1 and S2 present, regular. ABDOMEN: Soft. Bowel sounds present. Distended. Nontender. No guarding. No rigidity noted. 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 No focal deficits noted. EXTREMITIES: No edema. Palpable peripheral pulses. MEDICATIONS: Include Mucomyst 4 mL p.o. every 12 hours, albumin 12.5 g IV every 8 hours, DuoNeb 3 mL every 6 hours, Combivent 2 puffs 2 times daily, Azactam 1 g IV every 8 hours, D5 half normal saline at 75 mL an hour, heparin 5000 units subcu every 8 hours, imipenem 500 mg IV every 8 hours, Reglan 5 mg IV push every 8 hours, Singulair 10 mg p.o. at bedtime, morphine 1 mg IV push every 6 hours p.r.n., Flomax 0.4 mg daily, sodium chloride 70 mL an hour. LABORATORY DATA: Labs from this afternoon: WBC 43.1, hemoglobin 12.5, hematocrit 37.9, platelets 476, bands 4. Sodium 136, potassium 4.3, chloride 101, bicarb 27, BUN 57, creatinine 1.5, glucose 140, calcium 8.7, phosphors 4.3, magnesium 2.5, AST 23, ALT 19, alkaline phosphatase 155, total protein 5.2, albumin 2.5. Ascitic fluid is consistent with wbc 1658, rbc 2826, total cell count 100, neutrophils 67, lymphocytes 31, monocytes 2. Urine osmolality 395, creatinine 210, sodium 52, potassium 16.6. Blood culture and urine culture negative so far. Fluid Gram stain 10. HIDA scan negative. ASSESSMENT AND PLAN: Elderly male with a history of human immunodeficiency virus positive, idiopathic pulmonary fibrosis, prostate cancer history, admitted for abdominal distension which was consistent with ascites, status post paracentesis consistent with possible subacute bacterial peritonitis with elevated WBC count, WBC count increased to 4300 today, on multiple antibiotics, decreased urine output and acute kidney injury, status post V/Q scan consistent with high probability for pulmonary embolism and CT angio of the chest negative for any pulmonary embolism. We will continue with current antibiotics as per Dr. Fajardo. We will obtain renal consult whoever is on service. Endoscopic retrograde cholangiopancreatography was attempted by Gastroenterology this afternoon and was unsuccessful to cannulate. He is scheduled for possible repeat endoscopic retrograde cholangiopancreatography on . We will continue with nebulizer treatment. We will repeat labs in a.m. Kimberly Haines MD
[2017-11-23] MEDS: Albumin Human 25% (12.5 gm/50 ml) IV SCH ×3 (02:48→18:57)
[2017-11-23] MEDS: Meropenem 500 MG in Sodium Chloride 0.9% 100 ML IVPB SCH (04:09)
[2017-11-23] MEDS: Aztreonam 1 GM in Sodium Chloride 0.9% 100 ML IVPB SCH (06:00)
[2017-11-23] MEDS: Albuterol-Ipratrop 3 mg / 0.5 (3 ml) UD INH SCH ×2 (07:12→13:02)
[2017-11-23] MEDS: Albuterol-Ipratrop 20 mcg/actuation (4 g) IH SCH (08:02)
[2017-11-23] MEDS ORDERED: Sodium Chloride 0.9% 1,000 ML IV ONE (09:31)
--- NOTE | 2017-11-23 09:45 | PCM.RRT ---
<Jo Polanco - Last Filed: 11/23/17 09:42> DOG BREEDER Nurses Assessment - Situation Date: 11/23/17 DOG BREEDER Location:: Med/Surg DOG BREEDER Reason for Call: Hypotension DOG BREEDER Called By: RN - IV IV Inserted during DOG BREEDER?: No IV Fluids Initiated During DOG BREEDER?: 1000ml bolus of NS - Respiratory DOG BREEDER Delivery Method: Room Air Received Nebulizer Treatments: No Was the Patient Ventilated with Bag/Mask 100% O2?: No Secretions Suctioned?: No Was the Patient Intubated?: No Was the Patient Placed on a Ventilator?: No - Bird In Hand Coma Scale Coma Scale Eye Opening: Spontaneous Coma Scale Verbal: Confused/able to answer - Sepsis Screen Part 1 Sepsis Screen Part 1: Hypotensive - Recommendations 5) DOG BREEDER Level of Care Recommendations: Transfer to Telemetry Notifications: Attending Physician I.Reason for DOG BREEDER - A) Acute Change in Patient: (Select all that apply): Acute change in SBP below (70) - Neurological Status (Select all that apply): Alert, Responsive, Verbal, Follows Commands, Confused - Respiratory Oxygen Delivery Method: Venturi Mask @% - Constitutional Appears: Non-toxic, No Acute Distress - Head Head Exam: ATRAUMATIC, NORMAL INSPECTION, NORMOCEPHALIC - Eyes Eye Exam: EOMI, Normal appearance - Respiratory Exam Respiratory Exam: Clear to Ausculation Bilateral, NORMAL BREATHING PATTERN - Cardiovascular Exam Cardiovascular Exam: Tachycardia, +S1, +S2 - GI/Abdominal Exam GI & Abdominal Exam: Soft. absent: Tenderness - Neurological Exam Neurological Exam: Alert, Awake - Extremities Exam Extremities Exam: Normal Inspection Plan - Assessment of Findings&Treatment Plan DOG BREEDER called for hypotension by nurse when BP was found to be 67/57. Patient is alert and awake and at his baseline of confusion. Patient complains of back pain. Patient denies any dizziness, chest pain, shortness of breath, abdominal pain. Patient given 1 L NS bolus. Blood pressure at end of DOG BREEDER: 93/62, P: 128, T: 97.9 CBC, CMP, Mag, Phos to be drawn. <Ira Canales V - Last Filed: 11/23/17 23:48> Attending/Attestation - Attestation I have personally seen and examined this patient.: Yes I have fully participated in the care of the patient.: Yes I have reviewed all pertinent clinical information, including history, physical exam and plan: Yes Notes (Text): Brief hospitalist note RT called for hypotension Patient is awake alert placed in Trendelenburg. Patient is denying any feelings of dizziness, lightheadedness, nausea, vomiting, patient is arguing with ferrous refusing to put in hallway. There is recommended by respiratory therapy. Patient blood pressure improved with IV fluid. Patient is also pending order for albumin given history of liver cirrhosis. Patient does not have labs yet resulted for this morning. Have asked nursing to draw labs. Per review of EMR noted to have an elevated white count likely due to spontaneous bacterial peritonitis patient was posted go for ERCP today with GI however unlikely given RT this morning. And placed on telemetry. Have asked resident to follow with PMD.
--- NOTE | 2017-11-23 10:03 | CP.PCM.PN ---
Subjective - Date & Time of Evaluation Date of Evaluation: 11/23/17 Time of Evaluation: 10:00 - Subjective Subjective: Events noted- ERCP attempted yesterday. Operative report noted. Hypotension/tachycardia. Denies abdominal pain. C/O symptoms and feels hot. Elevated cell count on peritoneal fluid Patient does not have clinical picture of cholangitis or biliary obstruction Objective - Vital Signs/Intake and Output Vital Signs (last 24 hours): Temp Pulse Resp BP Pulse Ox 97.4 F L 130 H 18 95/64 L 94 L 11/23/17 08:38 11/23/17 08:38 11/23/17 08:38 11/23/17 08:38 11/23/17 08:38 Intake and Output: 11/23/17 11/23/17 06:59 18:59 Intake Total 1110 Output Total 150 Balance 960 - Medications Medications: Current Medications Albumin Human (Albumin Human 25% (12.5 Gm/50 Ml)) 12.5 gm IV Q8H [facility] Stop: 11/23/17 18:31 Last Admin: 11/23/17 02:48 Dose: 12.5 gm Albuterol/Ipratropium (Duoneb 3 Mg/0.5 Mg (3 Ml) Ud) 3 ml INH RQ6 [facility] Last Admin: 11/23/17 07:12 Dose: 3 ml Albuterol/Ipratropium (Combivent Respimat) 2 puff IH RBID [facility] Last Admin: 11/22/17 19:31 Dose: Not Given Heparin Sodium (Porcine) (Heparin) 5,000 units SC Q8 [facility] Last Admin: 11/23/17 06:05 Dose: 5,000 units Aztreonam 1 gm/ Sodium (Chloride) 100 mls @ 100 mls/hr IVPB Q8H [facility]; Protocol Last Admin: 11/23/17 06:00 Dose: 100 mls/hr Meropenem 500 mg/ Sodium (Chloride) 100 mls @ 100 mls/hr IVPB Q8H [facility]; Protocol Last Admin: 11/23/17 04:09 Dose: 100 mls/hr Sodium Chloride (Sodium Chloride 0.9%) 1,000 mls @ 70 mls/hr IV .[id number] [facility] Last Admin: 11/22/17 18:36 Dose: 70 mls/hr Sodium Chloride (Sodium Chloride 0.9%) 1,000 mls @ 1,000 mls/hr IV .Q1H [facility] Stop: 11/23/17 10:30 Metoclopramide HCl (Reglan) 5 mg IVP Q8H [facility] Last Admin: 11/23/17 04:06 Dose: 5 mg Montelukast Sodium (Singulair) 10 mg PO HS [facility] Last Admin: 11/22/17 22:28 Dose: 10 mg Morphine Sulfate (Morphine) 1 mg IVP Q6 PRN PRN Reason: Pain, severe (8-10) Last Admin: 11/22/17 22:27 Dose: 1 mg Tamsulosin HCl (Flomax) 0.4 mg PO DAILY [facility] Last Admin: 11/22/17 13:40 Dose: 0.4 mg - Labs Labs: 11/22/17 14:14 11/22/17 14:14 PT 12.0 SECONDS (9.7-12.2) 11/22/17 14:14 INR 1.1 11/22/17 14:14 APTT 25 SECONDS (21-34) 11/22/17 14:14 - Constitutional Appears: Cachectic, Chronically Ill - Eye Exam Eye Exam: absent: Scleral icterus - Respiratory Exam Respiratory Exam: NORMAL BREATHING PATTERN - Cardiovascular Exam Cardiovascular Exam: Tachycardia, REGULAR RHYTHM - GI/Abdominal Exam GI & Abdominal Exam: Soft. absent: Distended, Guarding, Rigid, Tenderness, Organomegaly, Rebound Assessment and Plan (1) Ascites Assessment & Plan: elevated ascites wbc suggestive of SBP. Culture negative fluid, however patient had prior antibiotics so likely false negative culture. Patient currently on Aztreonam and Merrem. Discussed with Dr Fajardo- will add Cipro for broader SBP coverage Awaiting ascites albumin, protein, cytology Would not start diuretic in light of hypotension Status: Acute (2) Dyspnea Status: Acute (3) Pulmonary embolism Status: Acute (4) HIV (human immunodeficiency virus infection) Status: Chronic (5) Choledocholithiasis Assessment & Plan: Clinically not obstructing or infected. ERCP attempted by Dr Hoffman. Monitor closely. Does not appear to require urgent billiary decompression, especially in presence of hemodynamic instability Status: Acute
[2017-11-23] MEDS ORDERED: Ciprofloxacin 400mg/200ml D5W 400 MG/200 ML BAG IVPB SCH (10:30)
--- NOTE | 2017-11-23 10:31 | CP.PCM.PN ---
Subjective - Date & Time of Evaluation Date of Evaluation: 11/23/17 Time of Evaluation: 10:31 - Subjective Subjective: Progress note dictated #[id number] Objective - Vital Signs/Intake and Output Vital Signs (last 24 hours): Temp Pulse Resp BP Pulse Ox 97.4 F L 130 H 18 95/64 L 94 L 11/23/17 08:38 11/23/17 08:38 11/23/17 08:38 11/23/17 08:38 11/23/17 08:38 Intake and Output: 11/23/17 11/23/17 06:59 18:59 Intake Total 1110 Output Total 150 Balance 960 - Medications Medications: Current Medications Albumin Human (Albumin Human 25% (12.5 Gm/50 Ml)) 12.5 gm IV Q8H [facility] Stop: 11/23/17 18:31 Last Admin: 11/23/17 02:48 Dose: 12.5 gm Albuterol/Ipratropium (Duoneb 3 Mg/0.5 Mg (3 Ml) Ud) 3 ml INH RQ6 [facility] Last Admin: 11/23/17 07:12 Dose: 3 ml Albuterol/Ipratropium (Combivent Respimat) 2 puff IH RBID [facility] Last Admin: 11/22/17 19:31 Dose: Not Given Heparin Sodium (Porcine) (Heparin) 5,000 units SC Q8 [facility] Last Admin: 11/23/17 06:05 Dose: 5,000 units Aztreonam 1 gm/ Sodium (Chloride) 100 mls @ 100 mls/hr IVPB Q8H [facility]; Protocol Last Admin: 11/23/17 06:00 Dose: 100 mls/hr Ciprofloxacin (Cipro 400mg/200ml Dsw) 400 mg in 200 mls @ 133 mls/hr IVPB Q12H [facility]; Protocol Amikacin Sulfate 750 mg/ (Sodium Chloride) 103 mls @ 100 mls/hr IV STAT STA; Protocol Stop: 11/23/17 11:27 Sodium Chloride (Sodium Chloride 0.9%) 1,000 mls @ 100 mls/hr IV .Q10H [facility] Metoclopramide HCl (Reglan) 5 mg IVP Q8H [facility] Last Admin: 11/23/17 04:06 Dose: 5 mg Montelukast Sodium (Singulair) 10 mg PO HS [facility] Last Admin: 11/22/17 22:28 Dose: 10 mg Morphine Sulfate (Morphine) 1 mg IVP Q6 PRN PRN Reason: Pain, severe (8-10) Last Admin: 11/22/17 22:27 Dose: 1 mg Tamsulosin HCl (Flomax) 0.4 mg PO DAILY [facility] Last Admin: 11/22/17 13:40 Dose: 0.4 mg - Labs Labs: 11/22/17 14:14 11/22/17 14:14 PT 12.0 SECONDS (9.7-12.2) 11/22/17 14:14 INR 1.1 11/22/17 14:14 APTT 25 SECONDS (21-34) 11/22/17 14:14
[2017-11-23 10:52] LABS: BASO # 0.1 K/uL (0.0-0.2); BASO % 0.3 % (0.0-2.0); EOS # 0.7 K/uL (0.0-0.7); EOS % 1.4 % (0.0-4.0); HEMOGLOBIN 11.4 g/dL (12.0-18.0); LYMPH # 2.1 K/uL (1.0-4.3); LYMPH % 4.2 % (20.0-40.0); MEAN CELL VOLUME 95.4 fL (80.0-94.0); MEAN CORPUSCULAR HEMOGLOBIN 30.9 pg (27.0-31.0); MEAN CORPUSCULAR HGB CONC 32.4 g/dL (33.0-37.0); MONO # 3.5 K/uL (0.0-0.8); NEUT # 43.7 K/uL (1.8-7.0); NEUT % 87.1 % (50.0-75.0); NRBC % 0.3 % (0.0-2.0); PLATELET COUNT 420 K/uL (130-400); RED CELL DISTRIBUTION WIDTH 16.1 % (11.5-14.5)
[2017-11-23 10:53] LABS: INR 1.1; PROTHROMBIN TIME 12.5 SECONDS (9.7-12.2)
[2017-11-23 10:58] LABS: WHITE BLOOD COUNT 50.1 K/uL (4.8-10.8)
[2017-11-23] MEDS: Sodium Chloride 0.9% 1,000 ML IV SCH ×3 (11:05→21:19)
[2017-11-23 11:10] LABS: ALB/GLOB RATIO 1.1 (1.0-2.1); ALBUMIN 2.7 g/dL (3.5-5.0); CALCIUM 8.5 mg/dl (8.6-10.4)
[2017-11-23 11:40] LABS: BANDS 3 % (0-2); LYMPHOCYTE 6 % (20-40); MONOCYTE 6 % (0-10); NEUTROPHIL 85 % (50-75); TOTAL CELLS COUNTED 100
[2017-11-23 11:46] LABS: ANISOCYTOSIS SLIGHT; HYPOCHROMIC SLIGHT; PLATELET ESTIMATE NORMAL (NORMAL); POLYCHROMIC SLIGHT
--- NOTE | 2017-11-23 13:54 | CP.PCM.PN ---
Subjective - Date & Time of Evaluation Date of Evaluation: 11/23/17 Time of Evaluation: 13:40 - Subjective Subjective: dictated Objective - Vital Signs/Intake and Output Vital Signs (last 24 hours): Temp Pulse Resp BP Pulse Ox 97.4 F L 130 H 18 95/64 L 94 L 11/23/17 08:38 11/23/17 08:38 11/23/17 08:38 11/23/17 08:38 11/23/17 08:38 Intake and Output: 11/23/17 11/23/17 06:59 18:59 Intake Total 1110 Output Total 150 Balance 960 - Medications Medications: Current Medications Albumin Human (Albumin Human 25% (12.5 Gm/50 Ml)) 12.5 gm IV Q8H [facility] Stop: 11/23/17 18:31 Last Admin: 11/23/17 11:02 Dose: 12.5 gm Albuterol/Ipratropium (Duoneb 3 Mg/0.5 Mg (3 Ml) Ud) 3 ml INH RQ6 [facility] Last Admin: 11/23/17 13:02 Dose: 3 ml Albuterol/Ipratropium (Combivent Respimat) 2 puff IH RBID [facility] Last Admin: 11/23/17 08:02 Dose: Not Given Heparin Sodium (Porcine) (Heparin) 5,000 units SC Q8 [facility] Last Admin: 11/23/17 06:05 Dose: 5,000 units Sodium Chloride (Sodium Chloride 0.9%) 1,000 mls @ 100 mls/hr IV .Q10H [facility] Last Admin: 11/23/17 11:05 Dose: 100 mls/hr Ciprofloxacin (Cipro 400mg/200ml Dsw) 400 mg in 200 mls @ 133 mls/hr IVPB Q24H [facility]; Protocol Cefepime HCl 1 gm/ Dextrose 50 mls @ 100 mls/hr IVPB Q12H [facility]; Protocol Metronidazole 250 mg/ (Miscellaneous) 50 mls @ 100 mls/hr IVPB Q8H [facility]; Protocol Metoclopramide HCl (Reglan) 5 mg IVP Q8H [facility] Last Admin: 11/23/17 11:38 Dose: 5 mg Montelukast Sodium (Singulair) 10 mg PO HS [facility] Last Admin: 11/22/17 22:28 Dose: 10 mg Morphine Sulfate (Morphine) 1 mg IVP Q6 PRN PRN Reason: Pain, severe (8-10) Last Admin: 11/22/17 22:27 Dose: 1 mg Tamsulosin HCl (Flomax) 0.4 mg PO DAILY [facility] Last Admin: 11/22/17 13:40 Dose: 0.4 mg - Labs Labs: 11/23/17 10:33 11/23/17 10:33 PT 12.5 SECONDS (9.7-12.2) H 11/23/17 10:33 INR 1.1 11/23/17 10:33 APTT 24 SECONDS (21-34) 11/23/17 10:33
[2017-11-23] MEDS: Cefepime IV 1 gm in Dextrose 1 GM/50 ML BAG IVPB SCH (14:22)
--- NOTE | 2017-11-23 14:54 | VASCLAB ---
Date of service: 11/21/2017 PROCEDURE: Lower Extremity Venous Duplex Exam. HISTORY: r/o dvt PRIORS: None. TECHNIQUE: Bilateral common femoral, femoral, popliteal and posterior tibial, peroneal and great saphenous veins were evaluated. Flow was assessed with color Doppler, compressibility, assessment of phasic flow and augmentation response. Report prepared by Donna Sargent, SAKINA, RVS FINDINGS: RIGHT: 1. Common Femoral Vein: 1.1. Compressibility - Fully compressible: Thrombus - None : Flow - Phasic: Augmentation -Normal: Reflux - None. 2. Femoral Vein: 2.1. Compressibility - Fully compressible: Thrombus - None : Flow - Phasic: Augmentation -Normal: Reflux - None. 3. Popliteal Vein: 3.1. Compressibility - Fully compressible: Thrombus - None : Flow - Phasic: Augmentation -Normal: Reflux - None. 4. Posterior Tibial Vein: 4.1. Compressibility - Fully compressible: Thrombus - None: Flow - Phasic: Augmentation -Normal: Reflux - None. 5. Peroneal Vein: 5.1. Compressibility - Fully compressible: Thrombus - None: Flow - Phasic: Augmentation -Normal: Reflux - None. 6. Great Saphenous Vein: 6.1. Compressibility -: Thrombus - : Flow - : Augmentation - l: Reflux - . LEFT: 1. Common Femoral Vein: 1.1. Compressibility - Fully compressible: Thrombus - None: Flow - Phasic: Augmentation -Normal: Reflux - None. 2. Femoral Vein: 2.1. Compressibility - Fully compressible: Thrombus - None: Flow - Phasic: Augmentation -Normal: Reflux - None. 3. Popliteal Vein: 3.1. Compressibility - Fully compressible: Thrombus - None : Flow - Phasic: Augmentation -Normal: Reflux - None. 4. Posterior Tibial Vein: 4.1. Compressibility - Fully compressible: Thrombus - None: Flow - Phasic: Augmentation -Normal: Reflux - None. 5. Peroneal Vein: 5.1. Compressibility - Fully compressible: Thrombus - None: Flow - Phasic: Augmentation -Normal: Reflux - None. 6. Great Saphenous Vein: 6.1. Compressibility - : Thrombus - : Flow - : Augmentation - l: Reflux - . OTHER FINDINGS: Right: Greater saphenous vein of the right lower extremity could not visualized.. Left: Greater saphenous vein of the left lower extremity could not visualized. IMPRESSION: Right: No evidence of deep or superficial vein thrombosis of the right lower extremity. Normal valve function noted of the right side. Left: No evidence of deep or superficial vein thrombosis of the left lower extremity. Normal valve function noted of the left side.
[2017-11-23] MEDS ORDERED: Iohexol 240 (50 ml) PO ONE (15:15)
--- NOTE | 2017-11-23 15:20 | CP.PCM.PN ---
Subjective - Date & Time of Evaluation Date of Evaluation: 11/23/17 Time of Evaluation: 15:19 - Subjective Subjective: pt was seen and examined by me, pt is not in acute distress, c/o abd. discomfort and distention again, on gentle iv hydration wbc count is worsening. s.cr is slowly deteriorating, uop is minimal in the bag Objective - Vital Signs/Intake and Output Vital Signs (last 24 hours): Temp Pulse Resp BP Pulse Ox 97.4 F L 134 H 18 95/68 L 94 L 11/23/17 08:38 11/23/17 14:00 11/23/17 08:38 11/23/17 14:00 11/23/17 08:38 Intake and Output: 11/23/17 11/23/17 06:59 18:59 Intake Total 1110 400 Output Total 150 125 Balance 960 275 - Medications Medications: Current Medications Albumin Human (Albumin Human 25% (12.5 Gm/50 Ml)) 12.5 gm IV Q8H [facility] Stop: 11/23/17 18:31 Last Admin: 11/23/17 11:02 Dose: 12.5 gm Albuterol/Ipratropium (Duoneb 3 Mg/0.5 Mg (3 Ml) Ud) 3 ml INH RQ6 [facility] Last Admin: 11/23/17 13:02 Dose: 3 ml Albuterol/Ipratropium (Combivent Respimat) 2 puff IH RBID [facility] Last Admin: 11/23/17 08:02 Dose: Not Given Heparin Sodium (Porcine) (Heparin) 5,000 units SC Q8 [facility] Last Admin: 11/23/17 13:56 Dose: 5,000 units Sodium Chloride (Sodium Chloride 0.9%) 1,000 mls @ 100 mls/hr IV .Q10H [facility] Last Admin: 11/23/17 11:05 Dose: 100 mls/hr Ciprofloxacin (Cipro 400mg/200ml Dsw) 400 mg in 200 mls @ 133 mls/hr IVPB Q24H [facility]; Protocol Cefepime HCl (Maxipime Iv 1 Gm Premix) 1 gm in 50 mls @ 100 mls/hr IVPB Q12H [facility]; Protocol Last Admin: 11/23/17 14:22 Dose: 100 mls/hr Metronidazole (Flagyl) 250 mg in 50 mls @ 100 mls/hr IVPB Q8H [facility]; Protocol Stop: 11/28/17 16:01 Metoclopramide HCl (Reglan) 5 mg IVP Q8H [facility] Last Admin: 11/23/17 11:38 Dose: 5 mg Montelukast Sodium (Singulair) 10 mg PO HS [facility] Last Admin: 11/22/17 22:28 Dose: 10 mg Morphine Sulfate (Morphine) 1 mg IVP Q6 PRN PRN Reason: Pain, severe (8-10) Last Admin: 11/22/17 22:27 Dose: 1 mg Tamsulosin HCl (Flomax) 0.4 mg PO DAILY [facility] Last Admin: 11/22/17 13:40 Dose: 0.4 mg - Labs Labs: 11/23/17 10:33 11/23/17 10:33 PT 12.5 SECONDS (9.7-12.2) H 11/23/17 10:33 INR 1.1 11/23/17 10:33 APTT 24 SECONDS (21-34) 11/23/17 10:33 - Constitutional Appears: No Acute Distress - Head Exam Head Exam: ATRAUMATIC, NORMAL INSPECTION, NORMOCEPHALIC - Eye Exam Eye Exam: EOMI, Normal appearance, PERRL Pupil Exam: NORMAL ACCOMODATION - ENT Exam ENT Exam: Mucous Membranes Moist - Neck Exam Neck Exam: Full ROM, Normal Inspection - Respiratory Exam Respiratory Exam: Clear to Ausculation Bilateral, NORMAL BREATHING PATTERN - Cardiovascular Exam Cardiovascular Exam: REGULAR RHYTHM, +S1, +S2 - GI/Abdominal Exam GI & Abdominal Exam: Distended, Soft, Normal Bowel Sounds - Rectal Exam Rectal Exam: Deferred - Neurological Exam Neurological Exam: Awake, CN II-XII Intact, Oriented x3, Reflexes Normal - Psychiatric Exam Psychiatric exam: Normal Affect - Skin Skin Exam: Normal Color Assessment and Plan - Assessment and Plan (Free Text) Assessment: 82 yo HM with pmh /o hiv+ ve, copd, IPF, primary pul. htn, oa, djd, ascites, s/p left TKR , ascites, with increased bun/cr, 1. Renal failure, most likely BERNARDO, c/w pre renal azotemia 2. Ascites 3. SBP 4. HIV+ 5. Dehydration 6. Sepsis c/w gentle iv hydration strict i/o's bmp in am c/w iv abx as per ID and GI f/u with ascitic fluid c/s over all prognosis is poor
--- NOTE | 2017-11-23 16:55 | CP.PCM.PN ---
<Stef Begum S - Last Filed: 11/23/17 16:56> Subjective - Date & Time of Evaluation Date of Evaluation: 11/23/17 Time of Evaluation: 14:50 - Subjective Subjective: patient seen and examined 82-year-old male with history of pneumonia, arthritis, asthma, HIV was admitted with increasing shortness of breath, chest congestion and cough. CAT scan of the chest showed no central pulmonary embolism but consistent with bronchiectasis and emphysema. overnight patient hypotensive and responded to fluids and IV albumin. Status post paracentesis and 4.5 L of fluid removed Objective - Vital Signs/Intake and Output Vital Signs (last 24 hours): Temp Pulse Resp BP Pulse Ox 97.1 F L 67 20 91/59 L 97 11/23/17 16:31 11/23/17 16:31 11/23/17 16:31 11/23/17 16:31 11/23/17 16:31 Intake and Output: 11/23/17 11/23/17 06:59 18:59 Intake Total 1110 400 Output Total 150 125 Balance 960 275 - Medications Medications: Current Medications Albumin Human (Albumin Human 25% (12.5 Gm/50 Ml)) 12.5 gm IV Q8H [facility] Stop: 11/23/17 18:31 Last Admin: 11/23/17 11:02 Dose: 12.5 gm Albuterol/Ipratropium (Duoneb 3 Mg/0.5 Mg (3 Ml) Ud) 3 ml INH RQ6 [facility] Last Admin: 11/23/17 13:02 Dose: 3 ml Albuterol/Ipratropium (Combivent Respimat) 2 puff IH [facility]ID [facility] Last Admin: 11/23/17 08:02 Dose: Not Given Heparin Sodium (Porcine) (Heparin) 5,000 units SC Q8 [facility] Last Admin: 11/23/17 13:56 Dose: 5,000 units Sodium Chloride (Sodium Chloride 0.9%) 1,000 mls @ 100 mls/hr IV .Q10H [facility] Last Admin: 11/23/17 11:05 Dose: 100 mls/hr Ciprofloxacin (Cipro 400mg/200ml Dsw) 400 mg in 200 mls @ 133 mls/hr IVPB Q24H [facility]; Protocol Cefepime HCl (Maxipime Iv 1 Gm Premix) 1 gm in 50 mls @ 100 mls/hr IVPB Q12H [facility]; Protocol Last Admin: 11/23/17 14:22 Dose: 100 mls/hr Metronidazole (Flagyl) 250 mg in 50 mls @ 100 mls/hr IVPB Q8H [facility]; Protocol Stop: 11/28/17 16:01 Metoclopramide HCl (Reglan) 5 mg IVP Q8H [facility] Last Admin: 11/23/17 11:38 Dose: 5 mg Montelukast Sodium (Singulair) 10 mg PO HS [facility] Last Admin: 11/22/17 22:28 Dose: 10 mg Morphine Sulfate (Morphine) 1 mg IVP Q6 PRN PRN Reason: Pain, severe (8-10) Last Admin: 11/22/17 22:27 Dose: 1 mg Tamsulosin HCl (Flomax) 0.4 mg PO DAILY [facility] Last Admin: 11/22/17 13:40 Dose: 0.4 mg - Labs Labs: 11/23/17 10:33 11/23/17 10:33 PT 12.5 SECONDS (9.7-12.2) H 11/23/17 10:33 INR 1.1 11/23/17 10:33 APTT 24 SECONDS (21-34) 11/23/17 10:33 - Head Exam Head Exam: ATRAUMATIC, NORMOCEPHALIC - Neck Exam Neck Exam: Normal Inspection - Respiratory Exam Respiratory Exam: Decreased Breath Sounds - Cardiovascular Exam Cardiovascular Exam: REGULAR RHYTHM Assessment and Plan (1) Asthma Assessment & Plan: continue nebulizer treatment Status: Acute (2) Ascites Assessment & Plan: Status post paracentesis Status: Acute (3) Bronchiectasis Assessment & Plan: on IV antibiotics and bronchodilators Status: Acute (4) Pulmonary hypertension Status: Chronic <Cipriano Fields - Last Filed: 11/23/17 18:52> Objective - Vital Signs/Intake and Output Vital Signs (last 24 hours): Temp Pulse Resp BP Pulse Ox 97.1 F L 67 20 91/59 L 97 11/23/17 16:31 11/23/17 16:31 11/23/17 16:31 11/23/17 16:31 11/23/17 16:31 Intake and Output: 11/23/17 11/23/17 06:59 18:59 Intake Total 1110 400 Output Total 150 125 Balance 960 275 - Medications Medications: Current Medications Albumin Human (Albumin Human 25% (12.5 Gm/50 Ml)) 12.5 gm IV Q8H [facility] Stop: 11/23/17 18:31 Last Admin: 11/23/17 11:02 Dose: 12.5 gm Albuterol/Ipratropium (Duoneb 3 Mg/0.5 Mg (3 Ml) Ud) 3 ml INH RQ6 [facility] Last Admin: 11/23/17 13:02 Dose: 3 ml Albuterol/Ipratropium (Combivent Respimat) 2 puff IH RBID [facility] Last Admin: 11/23/17 08:02 Dose: Not Given Heparin Sodium (Porcine) (Heparin) 5,000 units SC Q8 [facility] Last Admin: 11/23/17 13:56 Dose: 5,000 units Sodium Chloride (Sodium Chloride 0.9%) 1,000 mls @ 100 mls/hr IV .Q10H [facility] Last Admin: 11/23/17 11:05 Dose: 100 mls/hr Ciprofloxacin (Cipro 400mg/200ml Dsw) 400 mg in 200 mls @ 133 mls/hr IVPB Q24H [facility]; Protocol Cefepime HCl (Maxipime Iv 1 Gm Premix) 1 gm in 50 mls @ 100 mls/hr IVPB Q12H [facility]; Protocol Last Admin: 11/23/17 14:22 Dose: 100 mls/hr Metronidazole (Flagyl) 250 mg in 50 mls @ 100 mls/hr IVPB Q8H [facility]; Protocol Stop: 11/28/17 16:01 Metoclopramide HCl (Reglan) 5 mg IVP Q8H [facility] Last Admin: 11/23/17 11:38 Dose: 5 mg Montelukast Sodium (Singulair) 10 mg PO HS [facility] Last Admin: 11/22/17 22:28 Dose: 10 mg Morphine Sulfate (Morphine) 1 mg IVP Q6 PRN PRN Reason: Pain, severe (8-10) Last Admin: 11/22/17 22:27 Dose: 1 mg Tamsulosin HCl (Flomax) 0.4 mg PO DAILY [facility] Last Admin: 11/22/17 13:40 Dose: 0.4 mg - Labs Labs: 11/23/17 10:33 11/23/17 10:33 PT 12.5 SECONDS (9.7-12.2) H 11/23/17 10:33 INR 1.1 11/23/17 10:33 APTT 24 SECONDS (21-34) 11/23/17 10:33 - Respiratory Exam Additional comments: pt likely aspirating sub q emphysema seen s/p compressions and intubation - confirmed on CXR Assessment and Plan - Assessment and Plan (Free Text) Assessment: Pt code blue on floor. ROSC achieved, pt transferred to ICU
[2017-11-23] MEDS ORDERED: Sodium Bicarbonate (8.4%) 50 Meq Syringe ONE (17:00)
[2017-11-23] MEDS ORDERED: DOPamine 400mg/250ml D5W 400 MG/250 ML BAG IV PRN (18:00)
--- NOTE | 2017-11-23 18:01 | CP.PCM.PN ---
<Jo Polanco - Last Filed: 11/23/17 17:57> Subjective - Date & Time of Evaluation Date of Evaluation: 11/23/17 Time of Evaluation: 17:00 - Subjective Subjective: Patient found to be looking pale by nurse and then became nonresponsive. No pulses were felt. Code Blue called at 1700. ACLS protocol initiated. Compressions were started. Patient intubated. A total of 4 x epinephrine and 2 x bicarb were given. ROSC was achieved. Code ended at about 1720. Patient was taken down to ICU. ABG and Cxray ordered. Objective - Vital Signs/Intake and Output Vital Signs (last 24 hours): Temp Pulse Resp BP Pulse Ox 97.1 F L 67 20 91/59 L 97 11/23/17 16:31 11/23/17 16:31 11/23/17 16:31 11/23/17 16:31 11/23/17 16:31 Intake and Output: 11/23/17 11/23/17 06:59 18:59 Intake Total 1110 400 Output Total 150 125 Balance 960 275 - Medications Medications: Current Medications Albumin Human (Albumin Human 25% (12.5 Gm/50 Ml)) 12.5 gm IV Q8H [facility] Stop: 11/23/17 18:31 Last Admin: 11/23/17 11:02 Dose: 12.5 gm Albuterol/Ipratropium (Duoneb 3 Mg/0.5 Mg (3 Ml) Ud) 3 ml INH RQ6 [facility] Last Admin: 11/23/17 13:02 Dose: 3 ml Albuterol/Ipratropium (Combivent Respimat) 2 puff IH RBID [facility] Last Admin: 11/23/17 08:02 Dose: Not Given Heparin Sodium (Porcine) (Heparin) 5,000 units SC Q8 [facility] Last Admin: 11/23/17 13:56 Dose: 5,000 units Sodium Chloride (Sodium Chloride 0.9%) 1,000 mls @ 100 mls/hr IV .Q10H [facility] Last Admin: 11/23/17 11:05 Dose: 100 mls/hr Ciprofloxacin (Cipro 400mg/200ml Dsw) 400 mg in 200 mls @ 133 mls/hr IVPB Q24H [facility]; Protocol Cefepime HCl (Maxipime Iv 1 Gm Premix) 1 gm in 50 mls @ 100 mls/hr IVPB Q12H [facility]; Protocol Last Admin: 11/23/17 14:22 Dose: 100 mls/hr Metronidazole (Flagyl) 250 mg in 50 mls @ 100 mls/hr IVPB Q8H [facility]; Protocol Stop: 11/28/17 16:01 Metoclopramide HCl (Reglan) 5 mg IVP Q8H [facility] Last Admin: 11/23/17 11:38 Dose: 5 mg Montelukast Sodium (Singulair) 10 mg PO HS [facility] Last Admin: 11/22/17 22:28 Dose: 10 mg Morphine Sulfate (Morphine) 1 mg IVP Q6 PRN PRN Reason: Pain, severe (8-10) Last Admin: 11/22/17 22:27 Dose: 1 mg Tamsulosin HCl (Flomax) 0.4 mg PO DAILY [facility] Last Admin: 11/22/17 13:40 Dose: 0.4 mg - Labs Labs: 11/23/17 10:33 11/23/17 10:33 PT 12.5 SECONDS (9.7-12.2) H 11/23/17 10:33 INR 1.1 11/23/17 10:33 APTT 24 SECONDS (21-34) 11/23/17 10:33 <Ira Canales V - Last Filed: 11/23/17 23:50> Objective - Vital Signs/Intake and Output Vital Signs (last 24 hours): Temp Pulse Resp BP Pulse Ox 97.1 F L 106 H 20 102/60 99 11/23/17 16:31 11/23/17 23:25 11/23/17 23:25 11/23/17 23:25 11/23/17 23:25 Intake and Output: 11/23/17 11/24/17 18:59 06:59 Intake Total 452.5 457.5 Output Total 125 30 Balance 327.5 427.5 - Medications Medications: Current Medications Albuterol/Ipratropium (Duoneb 3 Mg/0.5 Mg (3 Ml) Ud) 3 ml INH RQ6 [facility] Last Admin: 11/23/17 13:02 Dose: 3 ml Albuterol/Ipratropium (Combivent Respimat) 2 puff IH RBID [facility] Last Admin: 11/23/17 08:02 Dose: Not Given Heparin Sodium (Porcine) (Heparin) 5,000 units SC Q8 [facility] Last Admin: 11/23/17 21:10 Dose: 5,000 units Sodium Chloride (Sodium Chloride 0.9%) 1,000 mls @ 100 mls/hr IV .Q10H [facility] Last Admin: 11/23/17 21:19 Dose: Not Given Ciprofloxacin (Cipro 400mg/200ml Dsw) 400 mg in 200 mls @ 133 mls/hr IVPB Q24H [facility]; Protocol Cefepime HCl (Maxipime Iv 1 Gm Premix) 1 gm in 50 mls @ 100 mls/hr IVPB Q12H [facility]; Protocol Last Admin: 11/23/17 14:22 Dose: 100 mls/hr Metronidazole (Flagyl) 250 mg in 50 mls @ 100 mls/hr IVPB Q8H [facility]; Protocol Stop: 11/28/17 16:01 Metoclopramide HCl (Reglan) 5 mg IVP Q8H [facility] Last Admin: 11/23/17 20:21 Dose: 5 mg Montelukast Sodium (Singulair) 10 mg PO HS [facility] Last Admin: 11/22/17 22:28 Dose: 10 mg Morphine Sulfate (Morphine) 1 mg IVP Q6 PRN PRN Reason: Pain, severe (8-10) Last Admin: 11/22/17 22:27 Dose: 1 mg Tamsulosin HCl (Flomax) 0.4 mg PO DAILY [facility] Last Admin: 11/22/17 13:40 Dose: 0.4 mg - Labs Labs: 11/23/17 10:33 11/23/17 10:33 PT 12.5 SECONDS (9.7-12.2) H 11/23/17 10:33 INR 1.1 11/23/17 10:33 APTT 24 SECONDS (21-34) 11/23/17 10:33 Attending/Attestation - Attestation I have personally seen and examined this patient.: Yes I have fully participated in the care of the patient.: Yes I have reviewed all pertinent clinical information, including history, physical exam and plan: Yes Notes (Text): Brief hospitalist note Responded to CODE BLUE.. Patient required intubation also noted to have aspiration. Patient required 5 epi, 2 bicarbonates Kathryn achieved. Intubated by ICU. Patient is moving head and palpable pulses on exam. Patient transfer to the unit for further management.
[2017-11-23] MEDS ORDERED: DOPamine 400mg/250ml D5W 400 MG/250 ML BAG IV ONE ×3 (18:03→23:27)
--- NOTE | 2017-11-23 18:25 | RAD ---
HISTORY: code blue s/p intubation COMPARISON: Chest x-ray performed 11/19/17 TECHNIQUE: Chest, one view. FINDINGS: External wires and defibrillator pad (left chest and left upper abdomen) limits evaluation of the underlying parenchyma. Endotracheal tube terminates approximately 4.7 cm above the ace. Extensive subcutaneous emphysema, left lateral chest wall. Pigtail catheter, left lower chest. LUNGS: No focal consolidation. Please note that chest x-ray has limited sensitivity for the detection of pulmonary masses. PLEURA: No significant pleural effusion identified. No definite pneumothorax . CARDIOVASCULAR: Heart size appears within normal limits. Atherosclerotic calcifications of the aorta. OSSEOUS STRUCTURES: Degenerative changes. VISUALIZED UPPER ABDOMEN: Unremarkable. OTHER FINDINGS: None. IMPRESSION: External wires and defibrillator pad (left chest and left upper abdomen) limits evaluation of the underlying parenchyma. Endotracheal tube terminates approximately 4.7 cm above the ace. Extensive subcutaneous emphysema, left lateral chest wall. Pigtail catheter, left lower chest.
--- NOTE | 2017-11-23 18:53 | CP.PCM.CON ---
<Cipriano Fields - Last Filed: 11/23/17 18:59> History of Present Illness - History of Present Illness History of Present Illness: CCU Consult Note HPI: OBTAINED FROM PRIOR DOCUMENTATION 82 years old male with PMHx of HIV, Asthma, arthritis, and Pneumonia is BIBA to ED for complaints of shortness of breath associated with cough and chest congestion that began10/. Patient describes pain as tightness of chest. Patient also reports symptoms worsened today which prompted the ED visit. Denies fever or any other physical complaints. He had pulmonary symptoms, and suspicion for PE thus put on a heparin drip. The patient was found to have a high ddimer and sent for V/Q scan which per ER documentation which showed high probability for PE. A CT angio of the chest was negative for central PE and the heparin drip has been discontinued. Imaging was concerning for liver cirrhosis. 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 No pulses were felt. Code Blue called at 1700. ACLS protocol initiated. Compressions were started. Patient intubated. A total of 4 x epinephrine and 2 x bicarb were given. ROSC was achieved. Code ended at about 1720. Patient was taken down to ICU. Review of Systems - Review of Systems Systems not reviewed;Unavailable: Acuity of Condition Past Patient History - Past Medical History & Family History Past Medical History?: Yes - Past Social History Smoking Status: Current Some Days Smoker - CARDIAC Hx Cardia Arrhythmia: No Hx Hypertension: Yes (Denies) Hx Pacemaker: No - PULMONARY Hx Asthma: Yes Hx Emphysema: Yes Hx Pneumonia: Yes - NEUROLOGICAL Hx Neurological Disorder: No - HEENT Hx HEENT Problems: No Hx Cataracts: Yes - RENAL Hx Chronic Kidney Disease: No - ENDOCRINE/METABOLIC Hx Endocrine Disorders: No - HEMATOLOGICAL/ONCOLOGICAL Hx AIDS: Yes Hx Human Immunodeficiency Virus (HIV): Yes - INTEGUMENTARY Hx Dermatological Problems: No - MUSCULOSKELETAL/RHEUMATOLOGICAL Hx Arthritis: Yes Hx Osteoarthritis: Yes - GASTROINTESTINAL Hx Gastrointestinal Disorders: Yes Hx Bowel Surgery: Yes (Hernia) Hx Colostomy: Yes Hx Constipation: Yes Hx Gastritis: Yes Hx Liver Failure: No - GENITOURINARY/GYNECOLOGICAL Hx Genitourinary Disorders: Yes Hx Prostate Problems: Yes - PSYCHIATRIC Hx Substance Use: No - SURGICAL HISTORY Hx Surgeries: Yes Hx Cataract Extraction: Yes Hx Eye Surgery: Yes Hx Herniorrhaphy: Yes Hx Orthopedic Surgery: Yes (Left knee) Other/Comment: UNKNOWN ABDOMINAL SURGERY - ANESTHESIA Hx Anesthesia: Yes Hx Anesthesia Reactions: No Hx Malignant Hyperthermia: No Meds Allergies/Adverse Reactions: Allergies Allergy/AdvReac Type Severity Reaction Status Date / Time No Known Allergies Allergy Verified 11/19/17 08:24 - Medications Medications: Current Medications Albuterol/Ipratropium (Duoneb 3 Mg/0.5 Mg (3 Ml) Ud) 3 ml INH RQ6 MAXINE Last Admin: 11/23/17 13:02 Dose: 3 ml Albuterol/Ipratropium (Combivent Respimat) 2 puff IH RBID MAXINE Last Admin: 11/23/17 08:02 Dose: Not Given Heparin Sodium (Porcine) (Heparin) 5,000 units SC Q8 MAXINE Last Admin: 11/23/17 13:56 Dose: 5,000 units Sodium Chloride (Sodium Chloride 0.9%) 1,000 mls @ 100 mls/hr IV .Q10H MAXINE Last Admin: 11/23/17 11:05 Dose: 100 mls/hr Ciprofloxacin (Cipro 400mg/200ml Dsw) 400 mg in 200 mls @ 133 mls/hr IVPB Q24H MAXINE; Protocol Cefepime HCl (Maxipime Iv 1 Gm Premix) 1 gm in 50 mls @ 100 mls/hr IVPB Q12H MAXINE; Protocol Last Admin: 11/23/17 14:22 Dose: 100 mls/hr Metronidazole (Flagyl) 250 mg in 50 mls @ 100 mls/hr IVPB Q8H MAXINE; Protocol Stop: 11/28/17 16:01 Metoclopramide HCl (Reglan) 5 mg IVP Q8H MAXINE Last Admin: 11/23/17 11:38 Dose: 5 mg Montelukast Sodium (Singulair) 10 mg PO HS MAXINE Last Admin: 11/22/17 22:28 Dose: 10 mg Morphine Sulfate (Morphine) 1 mg IVP Q6 PRN PRN Reason: Pain, severe (8-10) Last Admin: 11/22/17 22:27 Dose: 1 mg Tamsulosin HCl (Flomax) 0.4 mg PO DAILY MAXINE Last Admin: 11/22/17 13:40 Dose: 0.4 mg Physical Exam - Constitutional Appears: In Acute Distress, Cachectic - Eye Exam Eye Exam: Normal appearance. absent: Scleral icterus - ENT Exam ENT Exam: Mucous Membranes Moist - Neck Exam Additional comments: intubated - Respiratory Exam Additional comments: on ventilator sub q emphysema - Neurological Exam Additional comments: unresponsive Results - Vital Signs Recent Vital Signs: Last Vital Signs Temp 97.1 F L 11/23/17 16:31 Pulse 67 11/23/17 16:31 Resp 20 11/23/17 16:31 BP 91/59 L 11/23/17 16:31 Pulse Ox 97 11/23/17 16:31 - Labs Result Diagrams: 11/23/17 10:33 11/23/17 10:33 Labs: Laboratory Results - last 24 hr 11/20/17 11/20/17 11/20/17 11:16 11:16 11:16 WBC RBC Hgb Hct MCV MCH MCHC RDW Plt Count MPV Neut % (Auto) Lymph % (Auto) [place] % (Auto) Eos % (Auto) Baso % (Auto) Neut # (Auto) Lymph # (Auto) [place] # (Auto) Eos # (Auto) Baso # (Auto) Neutrophils % (Manual) Band Neutrophils % Lymphocytes % (Manual) Monocytes % (Manual) Platelet Estimate Polychromasia Hypochromasia (manual) Anisocytosis (manual) Smear Path Review PT INR APTT Protein C Activity 103 Protein S Activity 47 L Antithrombin III Activ 82 Sodium Potassium Chloride Carbon Dioxide Anion Gap BUN Creatinine Est GFR ( Amer) Est GFR (Non-Af Amer) POC Glucose (mg/dL) Random Glucose Lactic Acid Calcium Phosphorus Magnesium Total Bilirubin AST ALT Alkaline Phosphatase Ammonia Total Protein Albumin Globulin Albumin/Globulin Ratio Ur Random Creatinine Ur Random Sodium Ur Random Potassium Fluid Albumin Random Vancomycin 11/21/17 11/22/17 11/22/17 11:30 14:14 18:35 WBC RBC Hgb Hct MCV MCH MCHC RDW Plt Count MPV Neut % (Auto) Lymph % (Auto) [place] % (Auto) Eos % (Auto) Baso % (Auto) Neut # (Auto) Lymph # (Auto) [place] # (Auto) Eos # (Auto) Baso # (Auto) Neutrophils % (Manual) Band Neutrophils % Lymphocytes % (Manual) Monocytes % (Manual) Platelet Estimate Polychromasia Hypochromasia (manual) Anisocytosis (manual) Smear Path Review PT INR APTT Protein C Activity Protein S Activity Antithrombin III Activ Sodium Potassium Chloride Carbon Dioxide Anion Gap BUN Creatinine Est GFR ( Amer) Est GFR (Non-Af Amer) POC Glucose (mg/dL) Random Glucose Lactic Acid Calcium Phosphorus Magnesium Total Bilirubin AST ALT Alkaline Phosphatase Ammonia Total Protein Albumin Globulin Albumin/Globulin Ratio Ur Random Creatinine 210.7 Ur Random Sodium Ur Random Potassium Fluid Albumin 2.1 Random Vancomycin 11/22/17 11/23/17 11/23/17 18:35 09:31 10:33 WBC 50.1 H* RBC 3.70 L Hgb 11.4 L Hct 35.3 MCV 95.4 H MCH 30.9 MCHC 32.4 L RDW 16.1 H Plt Count 420 H MPV 8.0 Neut % (Auto) 87.1 H Lymph % (Auto) 4.2 L [place] % (Auto) 7.0 Eos % (Auto) 1.4 Baso % (Auto) 0.3 Neut # (Auto) 43.7 H Lymph # (Auto) 2.1 [place] # (Auto) 3.5 H Eos # (Auto) 0.7 Baso # (Auto) 0.1 Neutrophils % (Manual) 85 H Band Neutrophils % 3 H Lymphocytes % (Manual) 6 L Monocytes % (Manual) 6 Platelet Estimate Normal Polychromasia Slight Hypochromasia (manual) Slight Anisocytosis (manual) Slight Smear Path Review PT INR APTT Protein C Activity Protein S Activity Antithrombin III Activ Sodium Potassium Chloride Carbon Dioxide Anion Gap BUN Creatinine Est GFR ( Amer) Est GFR (Non-Af Amer) POC Glucose (mg/dL) 121 H Random Glucose Lactic Acid Calcium Phosphorus Magnesium Total Bilirubin AST ALT Alkaline Phosphatase Ammonia Total Protein Albumin Globulin Albumin/Globulin Ratio Ur Random Creatinine Ur Random Sodium 52 Ur Random Potassium 16.6 Fluid Albumin Random Vancomycin 11/23/17 11/23/17 11/23/17 10:33 10:33 10:33 WBC RBC Hgb Hct MCV MCH MCHC RDW Plt Count MPV Neut % (Auto) Lymph % (Auto) [place] % (Auto) Eos % (Auto) Baso % (Auto) Neut # (Auto) Lymph # (Auto) [place] # (Auto) Eos # (Auto) Baso # (Auto) Neutrophils % (Manual) Band Neutrophils % Lymphocytes % (Manual) Monocytes % (Manual) Platelet Estimate Polychromasia Hypochromasia (manual) Anisocytosis (manual) Smear Path Review PT 12.5 H INR 1.1 APTT 24 Protein C Activity Protein S Activity Antithrombin III Activ Sodium 138 Potassium 4.3 Chloride 105 Carbon Dioxide 22 Anion Gap 16 BUN 60 H Creatinine 2.0 H Est GFR ( Amer) 39 Est GFR (Non-Af Amer) 32 POC Glucose (mg/dL) Random Glucose 106 Lactic Acid Calcium 8.5 L Phosphorus 5.2 H Magnesium 2.4 H Total Bilirubin 0.2 AST 22 ALT 25 Alkaline Phosphatase 142 H Ammonia Total Protein 5.0 L Albumin 2.7 L Globulin 2.3 Albumin/Globulin Ratio 1.1 Ur Random Creatinine Ur Random Sodium Ur Random Potassium Fluid Albumin Random Vancomycin 12.3 11/23/17 11/23/17 11/23/17 11:15 12:34 17:14 WBC RBC Hgb Hct MCV MCH MCHC RDW Plt Count MPV Neut % (Auto) Lymph % (Auto) [place] % (Auto) Eos % (Auto) Baso % (Auto) Neut # (Auto) Lymph # (Auto) [place] # (Auto) Eos # (Auto) Baso # (Auto) Neutrophils % (Manual) Band Neutrophils % Lymphocytes % (Manual) Monocytes % (Manual) Platelet Estimate Polychromasia Hypochromasia (manual) Anisocytosis (manual) Smear Path Review PT INR APTT Protein C Activity Protein S Activity Antithrombin III Activ Sodium Potassium Chloride Carbon Dioxide Anion Gap BUN Creatinine Est GFR ( Amer) Est GFR (Non-Af Amer) POC Glucose (mg/dL) 182 H Random Glucose Lactic Acid 1.5 Calcium Phosphorus Magnesium Total Bilirubin AST ALT Alkaline Phosphatase Ammonia 19 Total Protein Albumin Globulin Albumin/Globulin Ratio Ur Random Creatinine Ur Random Sodium Ur Random Potassium Fluid Albumin Random Vancomycin Assessment & Plan - Assessment and Plan (Free Text) Assessment: 82yo m s/p code blue admitted to icu. Plan: NEURO -Pt unresponsive -monitor mental status -s/p code blue total time : PULM -Pt on vent, intubated fiO2 100 TV PEEP RR -CXR: sub q emphysema, central line placed -Possible Aspiration pna CARDIOVASC -code blue -bp, hr -drip -maintain ID -pna -abx -severe leukocytosis -f/u cultures HEME monitor H&H GI -s/p thoracentesis yesterday RENAL -BPH with history on nodules -monitor renal function -repleat and monitor elecs <Stef Begum S - Last Filed: 11/25/17 18:44> Results - Vital Signs Recent Vital Signs: Last Vital Signs Temp 102 F H 11/25/17 08:01 Pulse 102 H 11/25/17 09:00 Resp 22 11/25/17 09:00 BP 87/43 L 11/25/17 08:53 Pulse Ox 100 11/25/17 09:00 - Labs Result Diagrams: 11/25/17 06:08 11/25/17 06:08 Labs: Laboratory Results - last 24 hr 11/25/17 11/25/17 11/25/17 01:47 04:25 05:32 WBC RBC Hgb Hct MCV MCH MCHC RDW Plt Count MPV Neut % (Auto) Lymph % (Auto) [place] % (Auto) Eos % (Auto) Baso % (Auto) Neut # (Auto) Lymph # (Auto) [place] # (Auto) Eos # (Auto) Baso # (Auto) Neutrophils % (Manual) Band Neutrophils % Lymphocytes % (Manual) Monocytes % (Manual) Nucleated RBC % Toxic Granulation Platelet Estimate Large Platelets Polychromasia Hypochromasia (manual) Poikilocytosis (manual Anisocytosis (manual) [place] Cells Puncture Site Rb pCO2 48 H pO2 70 L HCO3 13.4 L ABG pH 7.09 L* ABG Total CO2 16.1 L ABG O2 Saturation 93.0 L ABG Base Excess -14.6 L ABG Hemoglobin 9.8 L ABG Carboxyhemoglobin 1.8 H POC ABG HHb (Measured) 6.8 H ABG Methemoglobin 1.1 [place] Test Na A-a O2 Difference 583.0 Respiratory Index 8.3 Hgb O2 Saturation 90.2 L Vent Mode Prvc Mechanical Rate 20 FiO2 100.0 Tidal Volume 450 PEEP 0 Crit Value Called To Eloy avilez /rn Crit Value Called By Jake menezes/rt Crit Value Read Back Y Blood Gas Notified Time 435 Sodium Potassium Chloride Carbon Dioxide Anion Gap BUN Creatinine Est GFR ( Amer) Est GFR (Non-Af Amer) POC Glucose (mg/dL) 141 H 102 Random Glucose Calcium Phosphorus Magnesium Total Bilirubin AST ALT Alkaline Phosphatase Total Protein Albumin Globulin Albumin/Globulin Ratio 11/25/17 11/25/17 06:08 06:08 WBC 52.8 H* RBC 3.58 L Hgb 10.9 L Hct 34.8 L MCV 97.2 H MCH 30.5 MCHC 31.4 L RDW 16.5 H Plt Count 327 MPV 8.5 Neut % (Auto) 89.4 H Lymph % (Auto) 3.9 L [place] % (Auto) 5.1 Eos % (Auto) 0.4 Baso % (Auto) 1.2 Neut # (Auto) 47.2 H Lymph # (Auto) 2.1 [place] # (Auto) 2.7 H Eos # (Auto) 0.2 Baso # (Auto) 0.6 H Neutrophils % (Manual) 87 H Band Neutrophils % 3 H Lymphocytes % (Manual) 5 L Monocytes % (Manual) 5 Nucleated RBC % 1 H Toxic Granulation Present Platelet Estimate Normal Large Platelets Present Polychromasia Slight Hypochromasia (manual) Slight Poikilocytosis (manual Slight Anisocytosis (manual) Slight [place] Cells Slight Puncture Site pCO2 pO2 HCO3 ABG pH ABG Total CO2 ABG O2 Saturation ABG Base Excess ABG Hemoglobin ABG Carboxyhemoglobin POC ABG HHb (Measured) ABG Methemoglobin [place] Test A-a O2 Difference Respiratory Index Hgb O2 Saturation Vent Mode Mechanical Rate FiO2 Tidal Volume PEEP Crit Value Called To Crit Value Called By Crit Value Read Back Blood Gas Notified Time Sodium 135 Potassium 6.3 H* D Chloride 108 H Carbon Dioxide 13 L Anion Gap 21 H BUN 77 H Creatinine 4.2 H Est GFR ( Amer) 16 Est GFR (Non-Af Amer) 14 POC Glucose (mg/dL) Random Glucose 108 Calcium 8.4 L Phosphorus 7.4 H Magnesium 2.5 H Total Bilirubin 0.6 AST 168 H D ALT 55 Alkaline Phosphatase 194 H Total Protein 4.7 L Albumin 2.4 L Globulin 2.3 Albumin/Globulin Ratio 1.1 Assessment & Plan (1) Cardiac arrest Status: Acute (2) Subcutaneous emphysema Status: Acute (3) Pulmonary hypertension Status: Chronic (4) Asthma Status: Acute (5) Ascites Status: Acute (6) Bronchiectasis Status: Acute Attending/Attestation - Attestation I have personally seen and examined this patient.: Yes I have fully participated in the care of the patient.: Yes I have reviewed all pertinent clinical information: Yes Notes (Text): assessment and plan as per resident note Status post cardiac arrest and resuscitation Massive subcutaneous emphysema Pigtail catheter inserted left pleural space Triple-lumen catheter inserted Pressors Ventilator support IV antibiotics Follow up ABG and chest x-ray
--- NOTE | 2017-11-23 18:55 | PCM.PROC ---
Procedures Attestation:: I certify that I have explained the specified Operation(s) or Procedure(s), risks, benefits and reasonable alternatives to the Patient and/or other person responsible. The opportunity was given to ask questions and all questions answered - Intubation Time Out Performed: No Sedative: None Laryngoscope: Addis ET Tube Size: 7.5 ET Tube Uncuffed: No ET Tube Secured at Depth: 24 ET Tube Secured [place]arion: Lips ET Tube Placement Confirmation: Visualized Passing Through Cords, Breath Sounds Equal Bilaterally, Confirmation w/Capnometry
--- NOTE | 2017-11-23 18:56 | PCM.PROC ---
Procedures Attestation:: I certify that I have explained the specified Operation(s) or Procedure(s), risks, benefits and reasonable alternatives to the Patient and/or other person responsible. The opportunity was given to ask questions and all questions answered - Central Line Placement Left Subclavian Triple Lumen Catheter Aseptic technique was employed throughout the procedure: Hand Hygiene done prior to procedure, Full sterile barriers (mask, hair cover, sterile gown, sterile gloves), Full body sterile drape, Chloraprep Antiseptic: 30 second prep for IJ or SC sites CVP Time Out Performed: No Pt. Placed on Pulse Ox Monitor: No Central Line Prep: Chlorhexidine-Alcohol Combination Amount of Anesthesia Used (mls): 0 Ultrasound Used for Placement: No Central Line Lumen Inserted: triple Central Line Length: 16 cm Post Procedure: Sutured in Place, Good Blood Return, All Ports Aspirated, Flushed, Capped, Sterile Dressing Applied Secured by: Suture Post procedure dressing: Chlorhexidine disc (Biopatch) Post Procedure X-Ray: Yes Patient Tolerated Procedure: Well
[2017-11-23 19:07] LABS: ARTERIAL BLOOD GAS HCO3 21.4 mmol/L (21-28); ARTERIAL BLOOD GAS O2 SAT 100.6 % (95-98); ARTERIAL BLOOD GAS PCO2 53 mm/Hg (35-45); ARTERIAL BLOOD GAS PH 7.25 (7.35-7.45); ARTERIAL BLOOD GAS PO2 362 mm/Hg (80-100); ARTERIAL BLOOD GAS TCO2 24.8 mmol/L (22-28)
[2017-11-23] MEDS: metroNIDAZOLE IV 250mg/50 ml 250 MG/50 ML BAG IVPB SCH (23:55)
[2017-11-24] MEDS ORDERED: DOPamine 400mg/250ml D5W 400 MG/250 ML BAG IV PRN (00:04)
[2017-11-24] MEDS ORDERED: Cisatracurium Besylate 100 MG in Dextrose 5% In Water 250 ML IV PRN (01:05)
[2017-11-24] MEDS ORDERED: Midazolam 50 mg/10 ml 100 MG in Dextrose 5% In Water 80 ML IV SCH (01:15)
[2017-11-24] MEDS: Albuterol-Ipratrop 3 mg / 0.5 (3 ml) UD INH SCH ×4 (01:24→20:11)
[2017-11-24] MEDS: Cefepime IV 1 gm in Dextrose 1 GM/50 ML BAG IVPB SCH ×2 (01:56→14:56)
--- NOTE | 2017-11-24 02:26 | PN ---
DATE: 11/23/2017 INFECTIOUS DISEASE FOLLOWUP SUBJECTIVE: Yesterday he went for the ERCP, so I was not able to see him, but his white count was relayed to me, hence I gave him a dose of vancomycin as his white count keeps on increasing in spite of being on effective antibiotics covering for Gram-negative sepsis. He did have fluid removed from his belly. He does have cirrhosis, HIV disease. They attempted an ERCP which Dr. Vasquez said was failed, but he thinks because of the normal liver enzymes that he doubts there is any acute cholecystitis or choledocholithiasis, but he is complaining of abdominal pain and he did add an EDUCATIONAL CONSULTANT today. I had called earlier and instead of Azactam and meropenem, we gave Cipro and Amikacin at this time to cover for SBP and switched antibiotic to Maxipime at this time. The patient is awake. His blood pressure did come up with the fluids that he got. PHYSICAL EXAMINATION: VITAL SIGNS: T-max is 97.4 right now, heart rate is around 100, blood pressure is 95/64, respirations are 20. GENERAL: He is awake. He is wheezing a little bit. He denies any respiratory distress, but he is on oxygen at this time. HEENT: Head is atraumatic, normocephalic. Tongue is totally dry. NECK: Supple. GENITOURINARY: He denies any pain with the urine. He has catheter there. ABDOMEN: He does complain of abdominal pain which is distended with ascites. Abdomen remains distended, but no guarding, no rigidity present. Bowel sounds are present. LUNGS: Have decreased breath sounds. HEART: Heart rate is tachycardic. EXTREMITIES: Have no edema. LABORATORY DATA: White count is 50.1, hemoglobin is 11.4, hematocrit is 35.3, platelet count is 420, it has decreased from before and neutrophils are increasing. INR is 1.1. BUN is 60, creatinine 2. He was hypotensive. Blood and urine cultures have been negative. Body fluid also did not grow anything negative for 2 days on antibiotics and he has cirrhosis. He did not have PE and HIDA scan was negative, so I doubt there are any stones there and he also initially got heparin. He had moderate localized cylindrical bronchiectasis changes present in both lungs, areas of scarring as seen on anterior aspect of right upper lobe, bilateral apical pleural thickening. So at this time, this patient probably has SBT, I would think, that cultures have been negative. He also has significant pyuria and retention in the urine, but nothing grew and he has ascites and peritoneal tap did not reveal anything. He has HIV. MEDICATIONS: Biktarvy that he was taking is not available right now, so he is off that, but he does say he was taking it. He is making some urine on the present IV fluids. They only gave albuterol once. I am going to put him on albuterol q.6 for now and the patient remains acutely ill. We will add to Cipro, Maxipime at this time and we will continue. PLAN: He is already on respiratory treatments and has a pulmonary eval which is pending. The ICU refused him as they had called the nurse and told her to have an ICU evaluation. The patient is due to have another abdominal CT today to rule out portal vein thrombosis. We will continue with Maxipime, added Flagyl at this time, and also Cipro once a day as his creatinine is high and we will follow. The patient's prognosis remains guarded. He does have HIV disease, but CD4 is 259, so he is stable otherwise. Tongue does not show any thrush, it is just dry. I do not think he can have CMV-related infections at this time as they need CD4 count less than 100. We will follow, and to continue IV fluids for now and repeat the labs. His lactate level surprisingly was normal. Daniel Fajardo MD
--- NOTE | 2017-11-24 04:15 | PN ---
DATE: 11/23/2017 SUBJECTIVE: The patient was seen and examined at bedside this morning. Events from this morning are noted. The patient had low blood pressure and CUTTER OUT was called. I was notified by the resident that the patient was given a fluid bolus, and his blood pressure improved to 90s. ICU team determined the patient on telemetry. When I examined the patient, the patient was alert, awake, and he wants to sit in the chair. I spoke to the patient via a Togolese speaking environmental monitoring technician and explained the patient that he could not be sitting in the chair, because his blood pressures are low, until he is stabilized. We encouraged him to lie down in bed. He complained of abdominal distention. Denied any headache, dizziness. Denied any chest pain. Denied any shortness of breath. Denied any other neurologic symptoms. Later I was notified by the resident that the patient was unresponsive and dayami gross was called at 5 p.m. ACLS protocol was initiated. The patient was intubated. The patient was given four epinephrine and two bicarb pushes. ROSC was achieved. Code ended at 17:20, and the patient was transferred to ICU. PHYSICAL EXAMINATION: GENERAL: Elderly male, lying in bed, in no acute distress. VITAL SIGNS: Blood pressure in the morning was 91/59, pulse 67, respirations 20, temperature 97.1 degree Fahrenheit, O2 sat 97% on nasal cannula. In ICU, blood pressure was 83/52, pulse 102, respirations 16, O2 sat is 98% on 70% FiO2. O2 is 94%. Intake was 1785 mL. Output was 300 mL. HEENT: Pupils round and reacting to light and accommodation. Extraocular muscles intact. No icterus. No pallor. No oral thrush. No pharyngeal congestion. NECK: Supple. No JVD. LUNGS: Bilateral vesicular breath sounds. No wheezing. No rhonchi. CVS: S1 and S2 present, regular. ABDOMEN: Distended. Bowel sounds present. Nontender. No guarding. EDGING MACHINE SETTER: The patient was alert, awake, and oriented x3 at the time of my examination in the morning. EXTREMITIES: No edema. Palpable peripheral pulses. MEDICATIONS: Include albuterol, ipratropium, Combivent, cefepime 1 gm IV every 12 hours, ciprofloxacin 400 mg IV daily, heparin 5000 units subcutaneous every 8 hours, metoclopramide 5 mg IV push every 8 hours, Flagyl 250 mg IV every 8 hours, Singulair 10 mg p.o. at bedtime, morphine sulfate is on hold, sodium chloride 100 mL an hour, Flomax 0.4 mg daily. LABORATORY DATA: Done from this morning: WBC 43.1, hemoglobin 12.5, hematocrit 37.9, platelets 476. PT 12, INR 1.1, PTT 25. Sodium 138, potassium 4.3, chloride 105, bicarb 22, BUN 60, creatinine 2, glucose 121, lactic acid 1.5, random glucose 106, calcium 8.5, magnesium 2.4, phosphorus 5.2, alkaline phosphatase 142, total protein 5, albumin 2.7. Blood cultures and urine culture negative. CD4 count is 259, ratio is 0.48. Echocardiogram, poor echo window. There is small moderate loculated anterior pericardial effusion. Ejection fraction is within the normal range. ASSESSMENT AND PLAN: Elderly male with history of human immunodeficiency virus positive, idiopathic pulmonary fibrosis, history of prostate cancer, osteoarthritis, who has been following up with Dr. Casey Castellon from [facility], had recent admission to [facility] about two months ago for left knee replacement, admitted to [facility] for decreased urine output, decreased p.o. intake, abdominal distention, shortness of breath. In the Emergency Department, V/Q scan was consistent with high probability for PE. The patient was started on IV heparin. CT angio was negative. Heparin drip was discontinued. Ultrasound of the abdomen consistent with common bile duct stone, ascites, cirrhosis of liver, status post paracentesis about 4.5 liters, ascitic fluid consistent with subacute bacterial peritonitis, status post attempt to endoscopic retrograde cholangiopancreatography, unable to proceed with endoscopic retrograde cholangiopancreatography, elevated white blood cell count progressively getting worse, acute kidney injury, status post CUTTER OUT this morning for hypotension, improved with fluid boluses and status post code blue and multiple epinephrine and bicarb, status post achievement of return of spontaneous circulation, status post intubation, unresponsive. We will watch his mental status, continue with vent support. His echocardiogram done prior showed normal ejection fraction. We will continue current antibiotics as per ID. Flagyl is being added, received one dose of amikacin and vancomycin. Maxipime was started. Discussed with Gastroenterology, Dr. Vasquez, this morning, and the patient was started on ciprofloxacin after discussing with Infectious Disease. Flagyl is being added. We will obtain CT scan of the abdomen and pelvis without contrast. His CD4 count is very low, probably the patient may be noncompliant with his medication. Continue with deep venous thrombosis and gastrointestinal prophylaxis. The patient's condition is guarded. We will try to contact the patient's family. Continue with supportive care. We will try to contact the patient's family regarding his do not resuscitate status. We will add further recommendation as his clinical course progresses. Kimberly Haines MD
[2017-11-24 04:45] LABS: ARTERIAL BLOOD GAS HCO3 20.3 mmol/L (21-28); ARTERIAL BLOOD GAS HEMOGLOBIN 13.2 g/dL (11.7-17.4); ARTERIAL BLOOD GAS O2 SAT 100.5 % (95-98); ARTERIAL BLOOD GAS PCO2 49 mm/Hg (35-45); ARTERIAL BLOOD GAS PH 7.25 (7.35-7.45); ARTERIAL BLOOD GAS PO2 443 mm/Hg (80-100)
[2017-11-24] MEDS: Sodium Chloride 0.9% 1,000 ML IV SCH ×2 (05:41→15:44)
[2017-11-24 06:42] LABS: BASO # 0.1 K/uL (0.0-0.2); BASO % 0.1 % (0.0-2.0); EOS # 0.4 K/uL (0.0-0.7); EOS % 0.9 % (0.0-4.0); HEMOGLOBIN 11.2 g/dL (12.0-18.0); LYMPH # 2.1 K/uL (1.0-4.3); LYMPH % 4.1 % (20.0-40.0); MEAN CELL VOLUME 95.6 fL (80.0-94.0); MEAN CORPUSCULAR HEMOGLOBIN 29.8 pg (27.0-31.0); MEAN CORPUSCULAR HGB CONC 31.2 g/dL (33.0-37.0); MONO # 2.4 K/uL (0.0-0.8); MONO % 4.8 % (0.0-10.0); NEUT # 45.9 K/uL (1.8-7.0); NEUT % 90.1 % (50.0-75.0); NRBC % 0.3 % (0.0-2.0); PLATELET COUNT 399 K/uL (130-400); RBC 3.77 Mil/uL (4.40-5.90); RED CELL DISTRIBUTION WIDTH 16.2 % (11.5-14.5)
[2017-11-24 06:53] LABS: WHITE BLOOD COUNT 50.9 K/uL (4.8-10.8)
[2017-11-24 07:05] LABS: ALB/GLOB RATIO 1.1 (1.0-2.1); ALBUMIN 2.6 g/dL (3.5-5.0); CALCIUM 8.7 mg/dl (8.6-10.4)
[2017-11-24] MEDS: Albuterol-Ipratrop 20 mcg/actuation (4 g) IH SCH (08:08)
[2017-11-24] MEDS: metroNIDAZOLE IV 250mg/50 ml 250 MG/50 ML BAG IVPB SCH ×4 (08:15→23:54)
[2017-11-24] MEDS: DOPamine 400mg/250ml D5W 400 MG/250 ML BAG IV PRN ×2 (08:23→23:25)
--- NOTE | 2017-11-24 08:29 | RAD ---
Date of service: 11/23/2017 HISTORY: central line COMPARISON: 11/23/2017 FINDINGS: Left-sided central line terminates in the SVC. Endotracheal tube terminates in the mid trachea. LUNGS: The right lung is well inflated and clear. Evaluation of the left lung is limited by leads and wires. PLEURA: No significant pleural effusion identified, no pneumothorax apparent. CARDIOVASCULAR: Normal. OSSEOUS STRUCTURES: No significant abnormalities. VISUALIZED UPPER ABDOMEN: Normal. OTHER FINDINGS: There is extensive soft tissue emphysema along the left lateral chest wall. IMPRESSION: Left central line terminates in the SV Endotracheal tube terminates in the mid trachea. No acute findings. Clear right lung. Little interval change in extensive soft tissue emphysema along the left lateral chest wall.
--- NOTE | 2017-11-24 08:45 | RAD ---
Date of service: 11/23/2017 HISTORY: PTX COMPARISON: 11/23/2017. FINDINGS: Endotracheal tube terminates 5.5 cm proximal to the ace. The nasogastric tube terminates in the stomach. The left PICC line terminates in the SVC. LUNGS: The lungs are well inflated and clear. PLEURA: No significant pleural effusion identified, no pneumothorax apparent. CARDIOVASCULAR: The heart is normal in size. There is unfolding of the aorta. OSSEOUS STRUCTURES: No significant abnormalities. VISUALIZED UPPER ABDOMEN: Normal. OTHER FINDINGS: There is extensive soft tissue emphysema along lateral chest dee and neck. IMPRESSION: Endotracheal tube terminates 5.5 cm proximal to the ace. The nasogastric tube terminates in the stomach. The left PICC line terminates in the SV No acute findings. No pneumothorax. Extensive soft tissue emphysema along both chest dee and in the neck.
[2017-11-24 09:05] LABS: ANISOCYTOSIS SLIGHT; BANDS 7 % (0-2); EOSINOPHIL 1 % (0-4); HYPOCHROMIC SLIGHT; LYMPHOCYTE 3 % (20-40); MONOCYTE 8 % (0-10); NEUTROPHIL 81 % (50-75); PLATELET ESTIMATE NORMAL (NORMAL); POLYCHROMIC SLIGHT; TOTAL CELLS COUNTED 100
[2017-11-24 09:07] LABS: BURR CELLS SLIGHT
[2017-11-24] MEDS ORDERED: HYDROmorphone 1 mg/ml ISec IVP PRN (10:09)
[2017-11-24] MEDS ORDERED: Ciprofloxacin 400mg/200ml D5W 400 MG/200 ML BAG IVPB SCH (12:00)
--- NOTE | 2017-11-24 12:08 | CP.PCM.PN ---
Subjective - Date & Time of Evaluation Date of Evaluation: 11/24/17 Time of Evaluation: 11:15 - Subjective Subjective: f/u cbd stone, ascites Above noted . Intubated, s/p code. In CCU. No Rb, melena, fever, chills, hematuria, hemoptysis, SZ, rash Objective - Vital Signs/Intake and Output Vital Signs (last 24 hours): Temp Pulse Resp BP Pulse Ox 97.1 F L 102 H 20 98/52 L 96 11/23/17 16:31 11/24/17 08:23 11/24/17 08:23 11/24/17 08:23 11/24/17 08:23 Intake and Output: 11/24/17 11/24/17 06:59 18:59 Intake Total 1809.1 793.7 Output Total 75 0 Balance 1734.1 793.7 - Medications Medications: Current Medications Albuterol/Ipratropium (Duoneb 3 Mg/0.5 Mg (3 Ml) Ud) 3 ml INH RQ6 MAXINE Last Admin: 11/24/17 08:09 Dose: 3 ml Heparin Sodium (Porcine) (Heparin) 5,000 units SC Q8 MAXINE Last Admin: 11/24/17 05:38 Dose: 5,000 units Hydrocortisone Sodium Succinate (Solu-Cortef) 100 mg IV Q8H MAXINE Last Admin: 11/24/17 10:54 Dose: 100 mg Hydromorphone HCl (Dilaudid) 1 mg IVP Q4H PRN PRN Reason: Pain, severe (8-10) Sodium Chloride (Sodium Chloride 0.9%) 1,000 mls @ 100 mls/hr IV .Q10H MAXINE Last Admin: 11/24/17 05:41 Dose: 100 mls/hr Ciprofloxacin (Cipro 400mg/200ml Dsw) 400 mg in 200 mls @ 133 mls/hr IVPB Q24H MAXINE; Protocol Cefepime HCl (Maxipime Iv 1 Gm Premix) 1 gm in 50 mls @ 100 mls/hr IVPB Q12H MAXINE; Protocol Last Admin: 11/24/17 01:56 Dose: 100 mls/hr Metronidazole (Flagyl) 250 mg in 50 mls @ 100 mls/hr IVPB Q8H MAXINE; Protocol Stop: 11/28/17 16:01 Last Admin: 11/24/17 08:15 Dose: 100 mls/hr Dopamine HCl/Dextrose (Dopamine 400mg/250ml D5w) 400 mg in 250 mls @ 42.865 mls/hr IV .Q5H50M PRN; Protocol PRN Reason: TITRATE PER MD ORDER Last Admin: 11/24/17 08:23 Dose: 7 mcg/kg/min, 16.67 mls/hr Montelukast Sodium (Singulair) 10 mg PO HS MAXINE Last Admin: 11/23/17 23:55 Dose: 10 mg Tamsulosin HCl (Flomax) 0.4 mg PO DAILY MAXINE Last Admin: 11/24/17 09:47 Dose: 0.4 mg - Labs Labs: 11/24/17 06:30 11/24/17 06:30 PT 12.5 SECONDS (9.7-12.2) H 11/23/17 10:33 INR 1.1 11/23/17 10:33 APTT 24 SECONDS (21-34) 11/23/17 10:33 - Constitutional Appears: Confused, Cachectic - Respiratory Exam Respiratory Exam: Rhonchi - Cardiovascular Exam Cardiovascular Exam: Tachycardia - GI/Abdominal Exam GI & Abdominal Exam: Distended, Soft, Normal Bowel Sounds. absent: Mass - Neurological Exam Neurological Exam: absent: Oriented x3 Assessment and Plan (1) Choledocholithiasis Assessment & Plan: Not able to do ERCP.. No biliary obstruction Status: Acute (2) Anemia Status: Acute (3) Ascites Assessment & Plan: SBP. ABx Status: Acute (4) Leucocytosis Assessment & Plan: sepsis Status: Acute (5) Primary pulmonary hypertension Status: Acute (6) Pulmonary embolism Status: Acute (7) HIV (human immunodeficiency virus infection) Status: Chronic
--- NOTE | 2017-11-24 13:28 | CP.CCUPN ---
<Cipriano Fields - Last Filed: 11/24/17 18:36> CCU Subjective - Physician Review Subjective (Free Text): 11/24/17 13:47 Pt seen and examined at bedside. unresponsive, absent corneal reflex 11/24/17 18:36 CCU Objective - Vital Signs / Intake & Output Intake and Output (Last 8hrs): Intake & Output 11/23/17 11/24/17 11/24/17 22:59 06:59 14:59 Intake Total 662.5 1199.1 793.7 Output Total 45 30 0 Balance 617.5 1169.1 793.7 Intake: IV 160 Intake, IV Amount 662.5 1199.1 633.7 LEFT PROX. Y 7.2 3.6 Left Medial Port 143.1 38.1 Subclavian Left Proximal Port 400 800 500 Subclavian Left Subclavian 262.5 248.8 92.0 Output: Urine 45 30 0 Urethral (Dhaliwal) 45 30 0 Other: # Bowel Movements 0 - Medications Active Medications: Active Medications Generic Name Dose Route Start Last Admin Trade Name Freq PRN Reason Stop Dose Admin Albuterol/Ipratropium 3 ml 11/19/17 20:00 11/24/17 08:09 Duoneb 3 Mg/0.5 Mg (3 Ml) Ud INH 3 ml RQ6 MAXINE Administration Heparin Sodium (Porcine) 5,000 units 11/20/17 14:00 11/24/17 05:38 Heparin SC 5,000 units Q8 MAXINE Administration Hydrocortisone Sodium Succinate 100 mg 11/24/17 10:15 11/24/17 10:54 Solu-Cortef IV 100 mg Q8H MAXINE Administration Hydromorphone HCl 1 mg 11/24/17 10:09 Dilaudid IVP Q4H PRN Pain, severe (8-10) Sodium Chloride 1,000 mls @ 100 mls/hr 11/23/17 10:30 11/24/17 05:41 Sodium Chloride 0.9% IV 100 mls/hr .Q10H MAXINE Administration Ciprofloxacin 400 mg in 200 mls @ 133 mls/hr 11/24/17 12:00 11/24/17 13:00 Cipro 400mg/200ml Dsw IVPB 133 mls/hr Q24H MAXINE Administration Protocol Cefepime HCl 1 gm in 50 mls @ 100 mls/hr 11/23/17 14:30 11/24/17 01:56 Maxipime Iv 1 Gm Premix IVPB 100 mls/hr Q12H MAXINE Administration Protocol Metronidazole 250 mg in 50 mls @ 100 mls/hr 11/23/17 16:00 11/24/17 08:15 Flagyl IVPB 11/28/17 16:01 100 mls/hr Q8H MAXINE Administration Protocol Dopamine HCl/Dextrose 400 mg in 250 mls @ 42.865 mls/hr 11/24/17 00:14 11/24/17 08:23 Dopamine 400mg/250ml D5w IV 7 mcg/kg/min .Q5H50M PRN 16.67 mls/hr TITRATE PER MD ORDER Administration Protocol 18 MCG/KG/MIN Montelukast Sodium 10 mg 11/20/17 10:00 11/23/17 23:55 Singulair PO 10 mg HS MAXINE Administration Tamsulosin HCl 0.4 mg 11/20/17 10:00 11/24/17 09:47 Flomax PO 0.4 mg DAILY MAXINE Administration - Patient Studies Lab Studies: Microbiology Studies 11/21/17 12:54 Gram Stain - Final Body Fluid - Abdominal Body Fluid Culture - Preliminary NO GROWTH AFTER 3 DAYS 11/22/17 21:43 Urine Culture - Final Urine,Catheterized No Growth (<1,000 CFU/ML) 11/19/17 14:30 Blood Culture - Preliminary Blood NO GROWTH AFTER 4 DAYS 11/19/17 14:30 Blood Culture - Preliminary Blood NO GROWTH AFTER 4 DAYS Lab Studies 11/24/17 11/24/17 11/24/17 Range/Units 06:30 06:30 04:30 WBC 50.9 H* (4.8-10.8) K/uL RBC 3.77 L (4.40-5.90) Mil/uL Hgb 11.2 L (12.0-18.0) g/dL Hct 36.0 (35.0-51.0) % MCV 95.6 H (80.0-94.0) fL MCH 29.8 (27.0-31.0) pg MCHC 31.2 L (33.0-37.0) g/dL RDW 16.2 H (11.5-14.5) % Plt Count 399 (130-400) K/uL MPV 8.0 (7.2-11.7) fL Neut % (Auto) 90.1 H (50.0-75.0) % Lymph % (Auto) 4.1 L (20.0-40.0) % [place] % (Auto) 4.8 (0.0-10.0) % Eos % (Auto) 0.9 (0.0-4.0) % Baso % (Auto) 0.1 (0.0-2.0) % Neut # (Auto) 45.9 H (1.8-7.0) K/uL Lymph # (Auto) 2.1 (1.0-4.3) K/uL [place]ie # (Auto) 2.4 H (0.0-0.8) K/uL Eos # (Auto) 0.4 (0.0-0.7) K/uL Baso # (Auto) 0.1 (0.0-0.2) K/uL Neutrophils % (Manual) 81 H (50-75) % Band Neutrophils % 7 H (0-2) % Lymphocytes % (Manual) 3 L (20-40) % Monocytes % (Manual) 8 (0-10) % Eosinophils % (Manual) 1 (0-4) % Platelet Estimate Normal (NORMAL) Polychromasia Slight Hypochromasia (manual) Slight Anisocytosis (manual) Slight [place] Cells Slight Factor V Puncture Site Rb pCO2 49 H (35-45) mm/Hg pO2 443 H (80-100) mm/Hg HCO3 20.3 L (21-28) mmol/L ABG pH 7.25 L (7.35-7.45) ABG Total CO2 23.0 (22-28) mmol/L ABG O2 Saturation 100.5 H (95-98) % ABG Base Excess -5.9 L (-2.0-3.0) mmol/L ABG Hemoglobin 13.2 (11.7-17.4) g/dL ABG Carboxyhemoglobin 1.9 H (0.5-1.5) % POC ABG HHb (Measured) -0.5 L (0.0-5.0) % ABG Methemoglobin 2.1 (0.0-3.0) % Channing Test Na ABG Potassium (3.6-5.2) mmol/L A-a O2 Difference -5.0 mm/Hg Respiratory Index 0 Hgb O2 Saturation 96.6 (95.0-98.0) % Sodium 138 (132-148) mmol/l Chloride 105 (98-107) mmol/L Glucose (75-110) mg/dl Lactate (0.7-2.1) mmol/L Vent Mode Prvc Mechanical Rate 20 FiO2 70.0 % Tidal Volume 500 PEEP 0 Potassium 4.3 (3.6-5.2) mmol/L Carbon Dioxide 22 (22-30) mmol/L Anion Gap 15 (10-20) BUN 65 H (9-20) mg/dL Creatinine 2.6 H (0.8-1.5) mg/dL Est GFR ( Amer) 29 Est GFR (Non-Af Amer) 24 POC Glucose (mg/dL) (65-110) mg/dL Random Glucose 129 H (75-110) mg/dL Calcium 8.7 (8.6-10.4) mg/dl Phosphorus 5.1 H (2.5-4.5) mg/dL Magnesium 2.4 H (1.6-2.3) mg/dL Total Bilirubin 0.2 (0.2-1.3) mg/dL AST 29 (17-59) U/L ALT 25 (21-72) U/L Alkaline Phosphatase 188 H D (38-126) U/L Total Protein 5.0 L (6.3-8.3) g/dL Albumin 2.6 L (3.5-5.0) g/dL Globulin 2.3 (2.2-3.9) gm/dL Albumin/Globulin Ratio 1.1 (1.0-2.1) Arterial Blood Potassium (3.6-5.2) mmol/L Urine Chloride (32-290) mmol/L Fluid Albumin g/dL Peritoneal Tot Protein g/dL Lidocaine (1.5-5.0) mcg/mL HIV-1 RNA Qnt (RT-PCR) (Not Detected) 11/23/17 11/23/17 11/22/17 Range/Units 19:04 17:14 18:39 WBC (4.8-10.8) K/uL RBC (4.40-5.90) Mil/uL Hgb (12.0-18.0) g/dL Hct (35.0-51.0) % MCV (80.0-94.0) fL MCH (27.0-31.0) pg MCHC (33.0-37.0) g/dL RDW (11.5-14.5) % Plt Count (130-400) K/uL MPV (7.2-11.7) fL Neut % (Auto) (50.0-75.0) % Lymph % (Auto) (20.0-40.0) % [place]ie % (Auto) (0.0-10.0) % Eos % (Auto) (0.0-4.0) % Baso % (Auto) (0.0-2.0) % Neut # (Auto) (1.8-7.0) K/uL Lymph # (Auto) (1.0-4.3) K/uL [place] # (Auto) (0.0-0.8) K/uL Eos # (Auto) (0.0-0.7) K/uL Baso # (Auto) (0.0-0.2) K/uL Neutrophils % (Manual) (50-75) % Band Neutrophils % (0-2) % Lymphocytes % (Manual) (20-40) % Monocytes % (Manual) (0-10) % Eosinophils % (Manual) (0-4) % Platelet Estimate (NORMAL) Polychromasia Hypochromasia (manual) Anisocytosis (manual) [place] Cells Factor V Puncture Site Rba pCO2 53 H (35-45) mm/Hg pO2 362 H (80-100) mm/Hg HCO3 21.4 (21-28) mmol/L ABG pH 7.25 L (7.35-7.45) ABG Total CO2 24.8 (22-28) mmol/L ABG O2 Saturation 100.6 H (95-98) % ABG Base Excess -4.6 L (-2.0-3.0) mmol/L ABG Hemoglobin (11.7-17.4) g/dL ABG Carboxyhemoglobin (0.5-1.5) % POC ABG HHb (Measured) (0.0-5.0) % ABG Methemoglobin (0.0-3.0) % Channing Test Na ABG Potassium 3.7 (3.6-5.2) mmol/L A-a O2 Difference 285.0 mm/Hg Respiratory Index 0.8 Hgb O2 Saturation (95.0-98.0) % Sodium 138.0 (132-148) mmol/l Chloride 110.0 H (98-107) mmol/L Glucose 154 H (75-110) mg/dl Lactate 1.6 (0.7-2.1) mmol/L Vent Mode Prvc Mechanical Rate 24 FiO2 100.0 % Tidal Volume 500 PEEP 5 Potassium (3.6-5.2) mmol/L Carbon Dioxide (22-30) mmol/L Anion Gap (10-20) BUN (9-20) mg/dL Creatinine (0.8-1.5) mg/dL Est GFR ( Amer) Est GFR (Non-Af Amer) POC Glucose (mg/dL) 182 H (65-110) mg/dL Random Glucose (75-110) mg/dL Calcium (8.6-10.4) mg/dl Phosphorus (2.5-4.5) mg/dL Magnesium (1.6-2.3) mg/dL Total Bilirubin (0.2-1.3) mg/dL AST (17-59) U/L ALT (21-72) U/L Alkaline Phosphatase (38-126) U/L Total Protein (6.3-8.3) g/dL Albumin (3.5-5.0) g/dL Globulin (2.2-3.9) gm/dL Albumin/Globulin Ratio (1.0-2.1) Arterial Blood Potassium 3.7 (3.6-5.2) mmol/L Urine Chloride 47 (32-290) mmol/L Fluid Albumin g/dL Peritoneal Tot Protein g/dL Lidocaine (1.5-5.0) mcg/mL HIV-1 RNA Qnt (RT-PCR) (Not Detected) 11/21/17 11/21/17 11/19/17 Range/Units 11:30 11:30 21:46 WBC (4.8-10.8) K/uL RBC (4.40-5.90) Mil/uL Hgb (12.0-18.0) g/dL Hct (35.0-51.0) % MCV (80.0-94.0) fL MCH (27.0-31.0) pg MCHC (33.0-37.0) g/dL RDW (11.5-14.5) % Plt Count (130-400) K/uL MPV (7.2-11.7) fL Neut % (Auto) (50.0-75.0) % Lymph % (Auto) (20.0-40.0) % [place] % (Auto) (0.0-10.0) % Eos % (Auto) (0.0-4.0) % Baso % (Auto) (0.0-2.0) % Neut # (Auto) (1.8-7.0) K/uL Lymph # (Auto) (1.0-4.3) K/uL [place] # (Auto) (0.0-0.8) K/uL Eos # (Auto) (0.0-0.7) K/uL Baso # (Auto) (0.0-0.2) K/uL Neutrophils % (Manual) (50-75) % Band Neutrophils % (0-2) % Lymphocytes % (Manual) (20-40) % Monocytes % (Manual) (0-10) % Eosinophils % (Manual) (0-4) % Platelet Estimate (NORMAL) Polychromasia Hypochromasia (manual) Anisocytosis (manual) [place]mo Cells Factor V see note Puncture Site pCO2 (35-45) mm/Hg pO2 (80-100) mm/Hg HCO3 (21-28) mmol/L ABG pH (7.35-7.45) ABG Total CO2 (22-28) mmol/L ABG O2 Saturation (95-98) % ABG Base Excess (-2.0-3.0) mmol/L ABG Hemoglobin (11.7-17.4) g/dL ABG Carboxyhemoglobin (0.5-1.5) % POC ABG HHb (Measured) (0.0-5.0) % ABG Methemoglobin (0.0-3.0) % Channing Test ABG Potassium (3.6-5.2) mmol/L A-a O2 Difference mm/Hg Respiratory Index Hgb O2 Saturation (95.0-98.0) % Sodium (132-148) mmol/l Chloride (98-107) mmol/L Glucose (75-110) mg/dl Lactate (0.7-2.1) mmol/L Vent Mode Mechanical Rate FiO2 % Tidal Volume PEEP Potassium (3.6-5.2) mmol/L Carbon Dioxide (22-30) mmol/L Anion Gap (10-20) BUN (9-20) mg/dL Creatinine (0.8-1.5) mg/dL Est GFR ( Amer) Est GFR (Non-Af Amer) POC Glucose (mg/dL) (65-110) mg/dL Random Glucose (75-110) mg/dL Calcium (8.6-10.4) mg/dl Phosphorus (2.5-4.5) mg/dL Magnesium (1.6-2.3) mg/dL Total Bilirubin (0.2-1.3) mg/dL AST (17-59) U/L ALT (21-72) U/L Alkaline Phosphatase (38-126) U/L Total Protein (6.3-8.3) g/dL Albumin (3.5-5.0) g/dL Globulin (2.2-3.9) gm/dL Albumin/Globulin Ratio (1.0-2.1) Arterial Blood Potassium (3.6-5.2) mmol/L Urine Chloride (32-290) mmol/L Fluid Albumin 2.1 g/dL Peritoneal Tot Protein 3.9 g/dL Lidocaine (1.5-5.0) mcg/mL HIV-1 RNA Qnt (RT-PCR) (Not Detected) 11/19/17 11/19/17 Range/Units 09:56 08:51 WBC (4.8-10.8) K/uL RBC (4.40-5.90) Mil/uL Hgb (12.0-18.0) g/dL Hct (35.0-51.0) % MCV (80.0-94.0) fL MCH (27.0-31.0) pg MCHC (33.0-37.0) g/dL RDW (11.5-14.5) % Plt Count (130-400) K/uL MPV (7.2-11.7) fL Neut % (Auto) (50.0-75.0) % Lymph % (Auto) (20.0-40.0) % [place] % (Auto) (0.0-10.0) % Eos % (Auto) (0.0-4.0) % Baso % (Auto) (0.0-2.0) % Neut # (Auto) (1.8-7.0) K/uL Lymph # (Auto) (1.0-4.3) K/uL [place] # (Auto) (0.0-0.8) K/uL Eos # (Auto) (0.0-0.7) K/uL Baso # (Auto) (0.0-0.2) K/uL Neutrophils % (Manual) (50-75) % Band Neutrophils % (0-2) % Lymphocytes % (Manual) (20-40) % Monocytes % (Manual) (0-10) % Eosinophils % (Manual) (0-4) % Platelet Estimate (NORMAL) Polychromasia Hypochromasia (manual) Anisocytosis (manual) [place] Cells Factor V Puncture Site pCO2 (35-45) mm/Hg pO2 (80-100) mm/Hg HCO3 (21-28) mmol/L ABG pH (7.35-7.45) ABG Total CO2 (22-28) mmol/L ABG O2 Saturation (95-98) % ABG Base Excess (-2.0-3.0) mmol/L ABG Hemoglobin (11.7-17.4) g/dL ABG Carboxyhemoglobin (0.5-1.5) % POC ABG HHb (Measured) (0.0-5.0) % ABG Methemoglobin (0.0-3.0) % Channing Test ABG Potassium (3.6-5.2) mmol/L A-a O2 Difference mm/Hg Respiratory Index Hgb O2 Saturation (95.0-98.0) % Sodium (132-148) mmol/l Chloride (98-107) mmol/L Glucose (75-110) mg/dl Lactate (0.7-2.1) mmol/L Vent Mode Mechanical Rate FiO2 % Tidal Volume PEEP Potassium (3.6-5.2) mmol/L Carbon Dioxide (22-30) mmol/L Anion Gap (10-20) BUN (9-20) mg/dL Creatinine (0.8-1.5) mg/dL Est GFR ( Amer) Est GFR (Non-Af Amer) POC Glucose (mg/dL) (65-110) mg/dL Random Glucose (75-110) mg/dL Calcium (8.6-10.4) mg/dl Phosphorus (2.5-4.5) mg/dL Magnesium (1.6-2.3) mg/dL Total Bilirubin (0.2-1.3) mg/dL AST (17-59) U/L ALT (21-72) U/L Alkaline Phosphatase (38-126) U/L Total Protein (6.3-8.3) g/dL Albumin (3.5-5.0) g/dL Globulin (2.2-3.9) gm/dL Albumin/Globulin Ratio (1.0-2.1) Arterial Blood Potassium (3.6-5.2) mmol/L Urine Chloride (32-290) mmol/L Fluid Albumin g/dL Peritoneal Tot Protein g/dL Lidocaine <1.0 L (1.5-5.0) mcg/mL HIV-1 RNA Qnt (RT-PCR) <1.30 detected H (Not Detected) Laboratory Results - last 24 hr 11/19/17 11/19/17 11/19/17 08:51 09:56 21:46 WBC RBC Hgb Hct MCV MCH MCHC RDW Plt Count MPV Neut % (Auto) Lymph % (Auto) [place] % (Auto) Eos % (Auto) Baso % (Auto) Neut # (Auto) Lymph # (Auto) [place] # (Auto) Eos # (Auto) Baso # (Auto) Neutrophils % (Manual) Band Neutrophils % Lymphocytes % (Manual) Monocytes % (Manual) Eosinophils % (Manual) Platelet Estimate Polychromasia Hypochromasia (manual) Anisocytosis (manual) [place] Cells Factor V see note Puncture Site pCO2 pO2 HCO3 ABG pH ABG Total CO2 ABG O2 Saturation ABG Base Excess ABG Hemoglobin ABG Carboxyhemoglobin POC ABG HHb (Measured) ABG Methemoglobin Channing Test ABG Potassium A-a O2 Difference Respiratory Index Hgb O2 Saturation Sodium Chloride Glucose Lactate Vent Mode Mechanical Rate FiO2 Tidal Volume PEEP Potassium Carbon Dioxide Anion Gap BUN Creatinine Est GFR ( Amer) Est GFR (Non-Af Amer) POC Glucose (mg/dL) Random Glucose Calcium Phosphorus Magnesium Total Bilirubin AST ALT Alkaline Phosphatase Total Protein Albumin Globulin Albumin/Globulin Ratio Arterial Blood Potassium Urine Chloride Fluid Albumin Peritoneal Tot Protein Lidocaine <1.0 L HIV-1 RNA Qnt (RT-PCR) <1.30 detected H 11/21/17 11/21/17 11/22/17 11:30 11:30 18:39 WBC RBC Hgb Hct MCV MCH MCHC RDW Plt Count MPV Neut % (Auto) Lymph % (Auto) [place]ie % (Auto) Eos % (Auto) Baso % (Auto) Neut # (Auto) Lymph # (Auto) [place] # (Auto) Eos # (Auto) Baso # (Auto) Neutrophils % (Manual) Band Neutrophils % Lymphocytes % (Manual) Monocytes % (Manual) Eosinophils % (Manual) Platelet Estimate Polychromasia Hypochromasia (manual) Anisocytosis (manual) [place] Cells Factor V Puncture Site pCO2 pO2 HCO3 ABG pH ABG Total CO2 ABG O2 Saturation ABG Base Excess ABG Hemoglobin ABG Carboxyhemoglobin POC ABG HHb (Measured) ABG Methemoglobin Channing Test ABG Potassium A-a O2 Difference Respiratory Index Hgb O2 Saturation Sodium Chloride Glucose Lactate Vent Mode Mechanical Rate FiO2 Tidal Volume PEEP Potassium Carbon Dioxide Anion Gap BUN Creatinine Est GFR ( Amer) Est GFR (Non-Af Amer) POC Glucose (mg/dL) Random Glucose Calcium Phosphorus Magnesium Total Bilirubin AST ALT Alkaline Phosphatase Total Protein Albumin Globulin Albumin/Globulin Ratio Arterial Blood Potassium Urine Chloride 47 Fluid Albumin 2.1 Peritoneal Tot Protein 3.9 Lidocaine HIV-1 RNA Qnt (RT-PCR) 11/23/17 11/23/17 11/24/17 17:14 19:04 04:30 WBC RBC Hgb Hct MCV MCH MCHC RDW Plt Count MPV Neut % (Auto) Lymph % (Auto) [place] % (Auto) Eos % (Auto) Baso % (Auto) Neut # (Auto) Lymph # (Auto) [place] # (Auto) Eos # (Auto) Baso # (Auto) Neutrophils % (Manual) Band Neutrophils % Lymphocytes % (Manual) Monocytes % (Manual) Eosinophils % (Manual) Platelet Estimate Polychromasia Hypochromasia (manual) Anisocytosis (manual) [place] Cells Factor V Puncture Site Rba Rb pCO2 53 H 49 H pO2 362 H 443 H HCO3 21.4 20.3 L ABG pH 7.25 L 7.25 L ABG Total CO2 24.8 23.0 ABG O2 Saturation 100.6 H 100.5 H ABG Base Excess -4.6 L -5.9 L ABG Hemoglobin 13.2 ABG Carboxyhemoglobin 1.9 H POC ABG HHb (Measured) -0.5 L ABG Methemoglobin 2.1 Channing Test Na Na ABG Potassium 3.7 A-a O2 Difference 285.0 -5.0 Respiratory Index 0.8 0 Hgb O2 Saturation 96.6 Sodium 138.0 Chloride 110.0 H Glucose 154 H Lactate 1.6 Vent Mode Prvc Prvc Mechanical Rate 24 20 FiO2 100.0 70.0 Tidal Volume 500 500 PEEP 5 0 Potassium Carbon Dioxide Anion Gap BUN Creatinine Est GFR ( Amer) Est GFR (Non-Af Amer) POC Glucose (mg/dL) 182 H Random Glucose Calcium Phosphorus Magnesium Total Bilirubin AST ALT Alkaline Phosphatase Total Protein Albumin Globulin Albumin/Globulin Ratio Arterial Blood Potassium 3.7 Urine Chloride Fluid Albumin Peritoneal Tot Protein Lidocaine HIV-1 RNA Qnt (RT-PCR) 11/24/17 11/24/17 06:30 06:30 WBC 50.9 H* RBC 3.77 L Hgb 11.2 L Hct 36.0 MCV 95.6 H MCH 29.8 MCHC 31.2 L RDW 16.2 H Plt Count 399 MPV 8.0 Neut % (Auto) 90.1 H Lymph % (Auto) 4.1 L [place] % (Auto) 4.8 Eos % (Auto) 0.9 Baso % (Auto) 0.1 Neut # (Auto) 45.9 H Lymph # (Auto) 2.1 [place] # (Auto) 2.4 H Eos # (Auto) 0.4 Baso # (Auto) 0.1 Neutrophils % (Manual) 81 H Band Neutrophils % 7 H Lymphocytes % (Manual) 3 L Monocytes % (Manual) 8 Eosinophils % (Manual) 1 Platelet Estimate Normal Polychromasia Slight Hypochromasia (manual) Slight Anisocytosis (manual) Slight [place] Cells Slight Factor V Puncture Site pCO2 pO2 HCO3 ABG pH ABG Total CO2 ABG O2 Saturation ABG Base Excess ABG Hemoglobin ABG Carboxyhemoglobin POC ABG HHb (Measured) ABG Methemoglobin Channing Test ABG Potassium A-a O2 Difference Respiratory Index Hgb O2 Saturation Sodium 138 Chloride 105 Glucose Lactate Vent Mode Mechanical Rate FiO2 Tidal Volume PEEP Potassium 4.3 Carbon Dioxide 22 Anion Gap 15 BUN 65 H Creatinine 2.6 H Est GFR ( Amer) 29 Est GFR (Non-Af Amer) 24 POC Glucose (mg/dL) Random Glucose 129 H Calcium 8.7 Phosphorus 5.1 H Magnesium 2.4 H Total Bilirubin 0.2 AST 29 ALT 25 Alkaline Phosphatase 188 H D Total Protein 5.0 L Albumin 2.6 L Globulin 2.3 Albumin/Globulin Ratio 1.1 Arterial Blood Potassium Urine Chloride Fluid Albumin Peritoneal Tot Protein Lidocaine HIV-1 RNA Qnt (RT-PCR) Critical Care Progress Note - Nutrition Nutrition: Nutrition Category Date Time Status NPO Diet [DIET] Diets 11/24/17 Breakfast Active Assessment/Plan - Assessment and Plan (Free Text) Assessment: 82yo m s/p code blue admitted to icu. Plan: NEURO Anoxic Brain Injury -Pt unresponsive - absent corneal reflex -monitor mental status -s/p code blue total time : PULM Anoxic Respiratory Failure -Pt on vent, intubated fiO2 100 TV PEEP RR -CXR: sub q emphysema, central line placed Pneumo Mediastinum -seen on CXR -chest tube removed -CT r/o major pneumothorax Possible Aspiration pna CARDIOVASC Cardiac arrest -code blue - on Dppamine drip -maintain BP and HR ID Pneumonia -abx -severe leukocytosis -f/u cultures HEME monitor H&H GI Ascitis -s/p thoracentesis 11/22 RENAL BPH with history on nodules -monitor renal function -repleat and monitor elecs <IsaiahAlem M - Last Filed: 11/26/17 11:47> CCU Subjective - Physician Review Critical Care Time Spent (in minutes): 65 CCU Objective - Patient Studies Lab Studies: Microbiology Studies 11/21/17 12:54 Gram Stain - Final Body Fluid - Abdominal Body Fluid Culture - Final No growth. Critical Care Progress Note - Nutrition Nutrition: Nutrition Category Date Time Status NPO Diet [DIET] Diets 11/24/17 Breakfast Active Assessment/Plan - Assessment and Plan (Free Text) Plan: above resident documents my clinical management and physical exam findings Patient seen and examiend at bedside. Patient s/p cardiac arrest, with prolong down time on nimbex ggt and versed ggt. ROS limited 2nd intubation vitals reviewed labs reveiwed allergies reviewed medications reviewed A/P Cardiac arrest: exact etiology unknown, at risk of cad, will benfit from DAPT, asa, statin, -Shock: suspect cardiogenic and septic: continue pressors to keep MAP >65, start empirical abx, check vanco level, hydrocortisone q8hrs -subcutaneous air: CT reveals no signs of pneumothorax, but rather mediastinal pneumo, push et tube down by 2 cm, keep FiO2 100%, continue bronchodilators -Sepsis: serial lactic q4hrs, empirically on abx, chu culture, continue abx as per ID -anoxic brain injury: obtain ct head, d/c versed and nimbex , evaluate underlying mental function -neurology eval ,eeg -ppor prognosis -dvt ppx -pUD ppx -NG tube feeds -ISS lispro q6hrs -Goasl of care:next of kin unknown, d/w socially responsible investment adviser to identify next of kin -possible trach/peg prognosis poor cc time 65 minutes - Date & Time Date: 11/24/17 Time: 21:00
--- NOTE | 2017-11-24 14:00 | CT ---
Date of service: 11/24/17 CT chest without IV contrast Indication: Pneumomediastinum Technique: Contiguous axial images were obtained through the chest without intravenous contrast enhancement. Sagittal and coronal reconstructions were generated and reviewed. This CT exam was performed using 1 or more of the following dose reduction techniques: Automated exposure control, adjustment of the MAA and/or kV according to patient size, and/or use of iterative reconstruction technique. Radiation dose (DLP): 680.33 MGy-cm. Comparison: CT chest with IV contrast performed 11/19/17 Findings: Examination limited by motion. Endotracheal tube terminates above the ace. Left-sided catheter terminates at the brachiocephalic vein. Nasogastric tube extends to the stomach. Extensive subcutaneous emphysema throughout the soft tissues of the neck, the chest, and bilateral upper extremities. Heart size appears within normal limits. Bronchiectasis, left greater than right lower lobes. Patchy infiltrate, left hilar/infrahilar region. Small left pneumothorax. No pleural effusion. Small hiatal hernia. Limited visualization of the noncontrast upper abdomen: Abdominal ascites. Displaced left 7th, 6th, 5th, 4th rib fractures. The sternum cannot be adequately assessed due to motion. Sternal fracture cannot be excluded. Impression: Displaced left 7th, 6th, 5th, and 4th rib fractures. The sternum cannot be adequately assessed due to motion. Sternal fracture cannot be excluded. Extensive subcutaneous emphysema throughout the neck, chest, and bilateral upper extremities. Small left pneumothorax. Patchy infiltrate, left hilar/infrahilar region. Bronchiectasis, left greater than right lower lobes. Large upper abdominal ascites. Findings discussed with the patient's RN Melanie on 11/24/17 at 1:53 p.m.
[2017-11-24] MEDS ORDERED: HYDROmorphone 0.5 mg/0.5 ml ISec IVP PRN (14:10)
--- NOTE | 2017-11-24 14:12 | CT ---
Date of service: 11/24/2017 PROCEDURE: CT HEAD WITHOUT CONTRAST. HISTORY: AMS COMPARISON: November 24, 2017 CT thorax completed 12:50. TECHNIQUE: Axial computed tomography images were obtained through the head/brain without intravenous contrast. Supplemental Coronal and Sagittal projections created and reviewed. Radiation dose: Total exam DLP = 1590.97 mGy-cm. This CT exam was performed using one or more of the following dose reduction techniques: Automated exposure control, adjustment of the mA and/or kV according to patient size, and/or use of iterative reconstruction technique. FINDINGS: HEMORRHAGE: No intracranial hemorrhage. BRAIN: No mass effect or edema. No atrophy or chronic microvascular ischemic changes. VENTRICLES: Unremarkable. No hydrocephalus. CALVARIUM: Unremarkable. PARANASAL SINUSES: Blood fluid level in the left maxillary sinus. MASTOID AIR CELLS: Unremarkable as visualized. No inflammatory changes. OTHER FINDINGS: Subcutaneous emphysematous changes are seen secondary to chest trauma. Subcutaneous emphysema identified in the infratemporal fossa, nasopharynx and dissecting along anatomic tissue planes in the neck bilaterally. No visible pneumocephalus or intracranial air. Oral tracheal tube and nasogastric tube identified. IMPRESSION: No acute intracranial abnormalities. No significant findings to account for the clinical presentation. Blood fluid level left maxillary sinus likely the sequela of recent trauma. No visible facial fractures. Extensive subcutaneous emphysematous change which appears to be related to chest wall trauma and attendant emphysematous findings in the thorax and visible thoracic inlet common neck.
--- NOTE | 2017-11-24 14:53 | PN ---
DATE: 11/24/2017 LOCATION: ICU 14, bed B. SUBJECTIVE: This is an 82-year-old male who is scheduled for repeat ERCP today. Today, the patient is unstable clinically, intubated with leukocytosis. Case discussed with the anesthesia staff and ERCP for today is cancelled. It has to be mentioned that the patient has no jaundice with the most recent lab result showed normal ALT and AST with mildly elevated alkaline phosphatase. We will sign off the case. Please contact me if any further help required. The patient is to be followed up by Dr. Garner. Emiliano Toro MD
--- NOTE | 2017-11-24 15:09 | CP.PCM.PN ---
Subjective - Date & Time of Evaluation Date of Evaluation: 11/24/17 Time of Evaluation: 15:00 - Subjective Subjective: Progress note dictated #[id number] Objective - Vital Signs/Intake and Output Vital Signs (last 24 hours): Temp Pulse Resp BP Pulse Ox 97.1 F L 102 H 20 98/52 L 96 11/23/17 16:31 11/24/17 08:23 11/24/17 08:23 11/24/17 08:23 11/24/17 08:23 Intake and Output: 11/24/17 11/24/17 06:59 18:59 Intake Total 1809.1 793.7 Output Total 75 0 Balance 1734.1 793.7 - Medications Medications: Current Medications Albuterol/Ipratropium (Duoneb 3 Mg/0.5 Mg (3 Ml) Ud) 3 ml INH RQ6 MAXINE Last Admin: 11/24/17 13:05 Dose: Not Given Heparin Sodium (Porcine) (Heparin) 5,000 units SC Q8 MAXINE Last Admin: 11/24/17 15:01 Dose: 5,000 units Hydrocortisone Sodium Succinate (Solu-Cortef) 100 mg IV Q8H MAXINE Last Admin: 11/24/17 10:54 Dose: 100 mg Hydromorphone HCl (Dilaudid) 0.5 mg IVP Q4H PRN PRN Reason: Pain, severe (8-10) Sodium Chloride (Sodium Chloride 0.9%) 1,000 mls @ 100 mls/hr IV .Q10H MAXINE Last Admin: 11/24/17 05:41 Dose: 100 mls/hr Ciprofloxacin (Cipro 400mg/200ml Dsw) 400 mg in 200 mls @ 133 mls/hr IVPB Q24H MAXINE; Protocol Last Admin: 11/24/17 13:00 Dose: 133 mls/hr Cefepime HCl (Maxipime Iv 1 Gm Premix) 1 gm in 50 mls @ 100 mls/hr IVPB Q12H MAXINE; Protocol Last Admin: 11/24/17 14:56 Dose: 100 mls/hr Metronidazole (Flagyl) 250 mg in 50 mls @ 100 mls/hr IVPB Q8H MAXINE; Protocol Stop: 11/28/17 16:01 Last Admin: 11/24/17 08:15 Dose: 100 mls/hr Dopamine HCl/Dextrose (Dopamine 400mg/250ml D5w) 400 mg in 250 mls @ 42.865 mls/hr IV .Q5H50M PRN; Protocol PRN Reason: TITRATE PER MD ORDER Last Admin: 11/24/17 08:23 Dose: 7 mcg/kg/min, 16.67 mls/hr Montelukast Sodium (Singulair) 10 mg PO HS [facility] Last Admin: 11/23/17 23:55 Dose: 10 mg Tamsulosin HCl (Flomax) 0.4 mg PO DAILY [facility] Last Admin: 11/24/17 09:47 Dose: 0.4 mg - Labs Labs: 11/24/17 06:30 11/24/17 06:30 PT 12.5 SECONDS (9.7-12.2) H 11/23/17 10:33 INR 1.1 11/23/17 10:33 APTT 24 SECONDS (21-34) 11/23/17 10:33
--- NOTE | 2017-11-24 15:46 | CP.PCM.PN ---
Subjective - Date & Time of Evaluation Date of Evaluation: 11/24/17 Time of Evaluation: 15:44 - Subjective Subjective: s/p regional guide, s/p code , on vent, multiple rib fractures diffuse subcutaneous emphysema, uop is minimal Objective - Vital Signs/Intake and Output Vital Signs (last 24 hours): Temp Pulse Resp BP Pulse Ox 97.1 F L 102 H 20 98/52 L 96 11/23/17 16:31 11/24/17 08:23 11/24/17 08:23 11/24/17 08:23 11/24/17 08:23 Intake and Output: 11/24/17 11/24/17 06:59 18:59 Intake Total 1809.1 1267.3 Output Total 75 50 Balance 1734.1 1217.3 - Medications Medications: Current Medications Albuterol/Ipratropium (Duoneb 3 Mg/0.5 Mg (3 Ml) Ud) 3 ml INH RQ6 MAXINE Last Admin: 11/24/17 13:05 Dose: Not Given Heparin Sodium (Porcine) (Heparin) 5,000 units SC Q8 MAXINE Last Admin: 11/24/17 15:01 Dose: 5,000 units Hydrocortisone Sodium Succinate (Solu-Cortef) 100 mg IV Q8H MAXINE Last Admin: 11/24/17 10:54 Dose: 100 mg Hydromorphone HCl (Dilaudid) 0.5 mg IVP Q4H PRN PRN Reason: Pain, severe (8-10) Sodium Chloride (Sodium Chloride 0.9%) 1,000 mls @ 100 mls/hr IV .Q10H [facility] Last Admin: 11/24/17 05:41 Dose: 100 mls/hr Ciprofloxacin (Cipro 400mg/200ml Dsw) 400 mg in 200 mls @ 133 mls/hr IVPB Q24H [facility]; Protocol Last Admin: 11/24/17 13:00 Dose: 133 mls/hr Cefepime HCl (Maxipime Iv 1 Gm Premix) 1 gm in 50 mls @ 100 mls/hr IVPB Q12H [facility]; Protocol Last Admin: 11/24/17 14:56 Dose: 100 mls/hr Metronidazole (Flagyl) 250 mg in 50 mls @ 100 mls/hr IVPB Q8H [facility]; Protocol Stop: 11/28/17 16:01 Last Admin: 11/24/17 08:15 Dose: 100 mls/hr Dopamine HCl/Dextrose (Dopamine 400mg/250ml D5w) 400 mg in 250 mls @ 42.865 mls/hr IV .Q5H50M PRN; Protocol PRN Reason: TITRATE PER MD ORDER Last Admin: 11/24/17 08:23 Dose: 7 mcg/kg/min, 16.67 mls/hr Montelukast Sodium (Singulair) 10 mg PO HS [facility] Last Admin: 11/23/17 23:55 Dose: 10 mg Tamsulosin HCl (Flomax) 0.4 mg PO DAILY [facility] Last Admin: 11/24/17 09:47 Dose: 0.4 mg - Labs Labs: 11/24/17 06:30 11/24/17 06:30 PT 12.5 SECONDS (9.7-12.2) H 11/23/17 10:33 INR 1.1 11/23/17 10:33 APTT 24 SECONDS (21-34) 11/23/17 10:33 - Constitutional Appears: Chronically Ill - Eye Exam Additional comments: pupils very sluggish, conj: pink - Respiratory Exam Additional comments: on vent - Cardiovascular Exam Cardiovascular Exam: +S1, +S2 - GI/Abdominal Exam GI & Abdominal Exam: Distended, Soft, Normal Bowel Sounds - Rectal Exam Rectal Exam: Deferred - Neurological Exam Additional comments: on vent, not responding - Skin Additional comments: diffuse subcutaneous emphysema+ Assessment and Plan - Assessment and Plan (Free Text) Assessment: 82 yo HM with pmh /o hiv+ ve, copd, IPF, primary pul. htn, oa, djd, ascites, s/p left TKR , ascites, with increased bun/cr, 1. Renal failure, most likely BERNAROD, c/w pre renal azotemia 2. Ascites 3. SBP 4. HIV+ 5. Dehydration 6. 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 r/o anoxic encephalopathy c/w vent support a sper ID c/w iv abx as per ID and GI f/u with ascitic fluid c/s over all prognosis very is poor. d/w ICU attending
--- NOTE | 2017-11-24 16:19 | CP.PCM.PN ---
Subjective - Date & Time of Evaluation Date of Evaluation: 11/24/17 Time of Evaluation: 16:00 - Subjective Subjective: dictated Objective - Vital Signs/Intake and Output Vital Signs (last 24 hours): Temp Pulse Resp BP Pulse Ox 97.1 F L 102 H 20 98/52 L 96 11/23/17 16:31 11/24/17 08:23 11/24/17 08:23 11/24/17 08:23 11/24/17 08:23 Intake and Output: 11/24/17 11/24/17 06:59 18:59 Intake Total 1809.1 1267.3 Output Total 75 50 Balance 1734.1 1217.3 - Medications Medications: Current Medications Albuterol/Ipratropium (Duoneb 3 Mg/0.5 Mg (3 Ml) Ud) 3 ml INH RQ6 MAXINE Last Admin: 11/24/17 13:05 Dose: Not Given Heparin Sodium (Porcine) (Heparin) 5,000 units SC Q8 MAXINE Last Admin: 11/24/17 15:01 Dose: 5,000 units Hydrocortisone Sodium Succinate (Solu-Cortef) 100 mg IV Q8H [facility] Last Admin: 11/24/17 10:54 Dose: 100 mg Hydromorphone HCl (Dilaudid) 0.5 mg IVP Q4H PRN PRN Reason: Pain, severe (8-10) Sodium Chloride (Sodium Chloride 0.9%) 1,000 mls @ 100 mls/hr IV .Q10H MAXINE Last Admin: 11/24/17 15:44 Dose: 100 mls/hr Ciprofloxacin (Cipro 400mg/200ml Dsw) 400 mg in 200 mls @ 133 mls/hr IVPB Q24H MAXINE; Protocol Last Admin: 11/24/17 13:00 Dose: 133 mls/hr Cefepime HCl (Maxipime Iv 1 Gm Premix) 1 gm in 50 mls @ 100 mls/hr IVPB Q12H MAXINE; Protocol Last Admin: 11/24/17 14:56 Dose: 100 mls/hr Metronidazole (Flagyl) 250 mg in 50 mls @ 100 mls/hr IVPB Q8H MAXINE; Protocol Stop: 11/28/17 16:01 Last Admin: 11/24/17 16:12 Dose: 100 mls/hr Dopamine HCl/Dextrose (Dopamine 400mg/250ml D5w) 400 mg in 250 mls @ 42.865 mls/hr IV .Q5H50M PRN; Protocol PRN Reason: TITRATE PER MD ORDER Last Admin: 11/24/17 08:23 Dose: 7 mcg/kg/min, 16.67 mls/hr Montelukast Sodium (Singulair) 10 mg PO HS [facility] Last Admin: 11/23/17 23:55 Dose: 10 mg Tamsulosin HCl (Flomax) 0.4 mg PO DAILY [facility] Last Admin: 11/24/17 09:47 Dose: 0.4 mg - Labs Labs: 11/24/17 06:30 11/24/17 06:30 PT 12.5 SECONDS (9.7-12.2) H 11/23/17 10:33 INR 1.1 11/23/17 10:33 APTT 24 SECONDS (21-34) 11/23/17 10:33
--- NOTE | 2017-11-24 17:48 | CP.PCM.PN ---
Subjective - Date & Time of Evaluation Date of Evaluation: 11/24/17 Time of Evaluation: 08:35 - Subjective Subjective: Patient seen and examined Status post cardiac arrest and resuscitation With massive subcutaneous emphysema Pigtail catheter placed yesterday for possible pneumothorax No response to stimuli Patient is off paralytic On pressors Oxygenating well on ventilator support Objective - Vital Signs/Intake and Output Vital Signs (last 24 hours): Temp Pulse Resp BP Pulse Ox 97.1 F L 102 H 20 98/52 L 96 11/23/17 16:31 11/24/17 08:23 11/24/17 08:23 11/24/17 08:23 11/24/17 08:23 Intake and Output: 11/24/17 11/24/17 06:59 18:59 Intake Total 1809.1 1267.3 Output Total 75 50 Balance 1734.1 1217.3 - Medications Medications: Current Medications Albuterol/Ipratropium (Duoneb 3 Mg/0.5 Mg (3 Ml) Ud) 3 ml INH RQ6 MAXINE Last Admin: 11/24/17 13:05 Dose: Not Given Heparin Sodium (Porcine) (Heparin) 5,000 units SC Q8 [facility]INE Last Admin: 11/24/17 15:01 Dose: 5,000 units Hydrocortisone Sodium Succinate (Solu-Cortef) 100 mg IV Q8H [facility] Last Admin: 11/24/17 17:34 Dose: 100 mg Hydromorphone HCl (Dilaudid) 0.5 mg IVP Q4H PRN PRN Reason: Pain, severe (8-10) Sodium Chloride (Sodium Chloride 0.9%) 1,000 mls @ 100 mls/hr IV .Q10H [facility] Last Admin: 11/24/17 15:44 Dose: 100 mls/hr Ciprofloxacin (Cipro 400mg/200ml Dsw) 400 mg in 200 mls @ 133 mls/hr IVPB Q24H [facility]; Protocol Last Admin: 11/24/17 13:00 Dose: 133 mls/hr Cefepime HCl (Maxipime Iv 1 Gm Premix) 1 gm in 50 mls @ 100 mls/hr IVPB Q12H [facility]; Protocol Last Admin: 11/24/17 14:56 Dose: 100 mls/hr Metronidazole (Flagyl) 250 mg in 50 mls @ 100 mls/hr IVPB Q8H [facility]; Protocol Stop: 11/28/17 16:01 Last Admin: 11/24/17 16:12 Dose: 100 mls/hr Dopamine HCl/Dextrose (Dopamine 400mg/250ml D5w) 400 mg in 250 mls @ 42.865 mls/hr IV .Q5H50M PRN; Protocol PRN Reason: TITRATE PER MD ORDER Last Admin: 11/24/17 08:23 Dose: 7 mcg/kg/min, 16.67 mls/hr Montelukast Sodium (Singulair) 10 mg PO HS [facility] Last Admin: 11/23/17 23:55 Dose: 10 mg Tamsulosin HCl (Flomax) 0.4 mg PO DAILY [facility] Last Admin: 11/24/17 09:47 Dose: 0.4 mg - Labs Labs: 11/24/17 06:30 11/24/17 06:30 PT 12.5 SECONDS (9.7-12.2) H 11/23/17 10:33 INR 1.1 11/23/17 10:33 APTT 24 SECONDS (21-34) 11/23/17 10:33 - Head Exam Head Exam: ATRAUMATIC, NORMOCEPHALIC - ENT Exam ENT Exam: Mucous Membranes Moist - Respiratory Exam Respiratory Exam: Decreased Breath Sounds Additional comments: Massive subcutaneous emphysema - Cardiovascular Exam Cardiovascular Exam: REGULAR RHYTHM - GI/Abdominal Exam GI & Abdominal Exam: Soft, Normal Bowel Sounds - Neurological Exam Neurological Exam: Altered Assessment and Plan (1) Cardiac arrest Assessment & Plan: status post resuscitation Continue ventilatory support and reduce FiO2 continue pressors Antibiotics Prognosis poor CAT scan of the chest noted Status: Acute (2) Subcutaneous emphysema Assessment & Plan: Secondary to resuscitation and rib fractures Status: Acute (3) Pulmonary hypertension Status: Chronic (4) Asthma Status: Acute (5) Ascites Status: Acute (6) Bronchiectasis Status: Acute
[2017-11-24 18:18] VITALS: O2SAT 100
[2017-11-24] MEDS: Acetaminophen 650mg/20.3ml solution UD PO PRN (20:50)
--- NOTE | 2017-11-24 22:57 | PN ---
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 He also has very poor output. He remains intubated in ICU and his white count is increasing further in spite of change of antibiotics. I had added Flagyl also, but his white count has jumped up dramatically. The GI says there is no stone in the CBD. They were unable to do ERCP. They suggested that it was SBP, but even the body fluid has come back negative. He has received antibiotics and his CD4 count was 250, so I do not expect any PCP. I do not expect any CMV which are seen in end-stage HIV disease and he was taking medications. In fact, he gave us a list of six HIV medications when he came in, he was on Biktarvy recently, so I am taken back. PHYSICAL EXAMINATION: VITAL SIGNS: T-max is 99.5. He is on 100% mechanical ventilator, appears now post code lethargic, unresponsive. NECK: Supple, but he has subcutaneous emphysema bilaterally. CARDIOPULMONARY: S1, S2. Tachy. LUNGS: He has decreased breath sounds. ABDOMEN: Remains distended with no guarding, no rigidity, but unable to evaluate much as he is comatose. EXTREMITIES: No edema in the lower extremities. LABORATORY DATA: Labs are noted. Labs show white count is 50.9, hemoglobin 11.2, hematocrit 36, platelet count is 399. ABG was done today which is 7.25, CO2 is 20.3, O2 is 443. Actually, I had requested ICU eval 2 days back. BUN is 65; creatinine is 2.6, has increased; and except for alkaline phosphatase, AST and ALT are normal, so it does not signify any gallbladder problems. So at this time, we will continue with the present treatment. Daniel Fajardo MD
--- NOTE | 2017-11-25 01:04 | PN ---
DATE: 11/24/2017 SUBJECTIVE: The patient was seen and examined at bedside. Events from yesterday and last night noted. The patient is status post code blue and cardiac arrest and resuscitation. Admitted to ICU. Remains intubated, requiring higher amounts of oxygen, unresponsive, not responding to deep painful stimuli, off sedatives, on pressors. PHYSICAL EXAMINATION: GENERAL: Elderly male, lying in bed, intubated. VITAL SIGNS: On 100% FiO2, O2 saturation 98%, temperature 99.2 degrees Fahrenheit, blood pressure 98/52, pulse 102, respirations 20. Intake is 2261, output is 200 mL. HEENT: Pupils are sluggishly reacting to light. No icterus. No pallor. Dry mucous membranes. ET tube in the oral cavity. NECK: Supple. LUNGS: Bilaterally vesicular breath sounds. Fair air entry. Basal rhonchi. CARDIOVASCULAR SYSTEM: S1 and S2 are present, regular. ABDOMEN: Distended. Bowel sounds present. CENTRAL NERVOUS SYSTEM: Intubated, off sedatives, unresponsive, not moving the extremities to deep painful stimuli. EXTREMITIES: Massive subcutaneous emphysema, extending from the neck into all over extremities. MEDICATIONS: Include nebulizer treatments, Maxipime 1 g IV every 12 hours, ciprofloxacin 400 mg IV daily, dopamine 18 mcg/kg per minute, heparin 5000 units subcu every 8 hours, Solu-Cortef 100 mg IV every 8 hours, Flagyl 250 mg IV every 8 hours, Singulair 10 mg daily, IV fluids normal saline at 100 mL an hour, and Flomax 0.4 mg daily. LABORATORY DATA: Labs done from this morning: WBC 36.9, hemoglobin 11.2, hematocrit 36, platelets 399. ABG on 100% FiO2, pH of 7.25, pCO2 of 49, O2 of 443. Sodium 138, potassium 4.3, chloride 105, bicarbonate 22, BUN 65, creatinine 2.6, glucose 182. Lactic acid 1.5, calcium 8.7, phosphorus 5.1, magnesium 2.4. Total bilirubin 0.2, AST 29, ALT 25, alkaline phosphatase 188, total protein 5, albumin 2.6. Random vancomycin 7.7. CT of the head negative for any acute changes. CT chest consistent with displaced left seventh, sixth, fifth and fourth rib fractures, cannot be adequately assessed. Extensive subcutaneous emphysema, small left pneumothorax, patchy infiltrates in left hilar and infrahilar regions, bronchiectasis, left greater than the right lower lobes. ASSESSMENT AND PLAN: Elderly male with history of human immunodeficiency virus positive with current CD4 count 259 from the hospital admission, on antiretroviral therapy and idiopathic pulmonary fibrosis. Admitted for abdominal distention, decreased urine output, and shortness of breath. V/Q scan consistent with high probability. CT angiography is negative for any pulmonary embolism. Abdominal ultrasound showed massive ascites, status post paracentesis and removal of 4.5 liters consistent with ascites. On multiple intravenous antibiotics, status post urinary retention and status post Dhaliwal catheter placement, acute renal failure, status post cardiac arrest and resuscitation. Remains intubated, unresponsive with high white count. Neurologically, the patient is unresponsive. The patient only has gag reflex as per the registered nurse. We will obtain neurology consult for electroencephalogram and for evaluation of anoxic encephalopathy. Continue with ventilator support. Massive subcutaneous emphysema, status post code with multiple rib fractures and small left pneumothorax. All the attempts were unsuccessful. We will continue with current antibiotics as per Infectious Disease. We will continue with deep venous thrombosis and gastrointestinal prophylaxis. Discussed with Urology. Monitor renal function. Continue with intravenous fluids. Discussed with registered nurse and case management. Called next of kin documented in the demographics, Antonia. As per her, she is only a friend, not [id number] as she stated on the admission. As per Antonia, she will be coming to the hospital, trying to find out the family member in [facility] to determine the patient's Do No Resuscitate status and to notify the family regarding the patient's critical condition. The patient's condition is critical and prognosis is guarded. We will continue with supportive care. Kimberly Haines MD
[2017-11-25] MEDS: Albuterol-Ipratrop 3 mg / 0.5 (3 ml) UD INH SCH ×2 (01:11→08:15)
[2017-11-25] MEDS: Cefepime IV 1 gm in Dextrose 1 GM/50 ML BAG IVPB SCH (01:51)
[2017-11-25] MEDS: Sodium Chloride 0.9% 1,000 ML IV SCH (01:57)
[2017-11-25] MEDS: DOPamine 400mg/250ml D5W 400 MG/250 ML BAG IV PRN ×2 (03:50→08:27)
[2017-11-25 04:31] LABS: ARTERIAL BLOOD GAS HCO3 13.4 mmol/L (21-28); ARTERIAL BLOOD GAS HEMOGLOBIN 9.8 g/dL (11.7-17.4); ARTERIAL BLOOD GAS PCO2 48 mm/Hg (35-45); ARTERIAL BLOOD GAS PH 7.09 (7.35-7.45); ARTERIAL BLOOD GAS PO2 70 mm/Hg (80-100); ARTERIAL BLOOD GAS TCO2 16.1 mmol/L (22-28)
[2017-11-25] MEDS ORDERED: Sodium Bicarbonate (8.4%) 50 Meq Syringe IVP ONE ×2 (06:01→07:25)
[2017-11-25 06:14] LABS: BASO # 0.6 K/uL (0.0-0.2); BASO % 1.2 % (0.0-2.0); EOS # 0.2 K/uL (0.0-0.7); EOS % 0.4 % (0.0-4.0); HEMOGLOBIN 10.9 g/dL (12.0-18.0); LYMPH # 2.1 K/uL (1.0-4.3); LYMPH % 3.9 % (20.0-40.0); MEAN CELL VOLUME 97.2 fL (80.0-94.0); MEAN CORPUSCULAR HEMOGLOBIN 30.5 pg (27.0-31.0); MEAN CORPUSCULAR HGB CONC 31.4 g/dL (33.0-37.0); MEAN PLATELET VOLUME 8.5 fL (7.2-11.7); MONO # 2.7 K/uL (0.0-0.8); MONO % 5.1 % (0.0-10.0); NEUT # 47.2 K/uL (1.8-7.0); NEUT % 89.4 % (50.0-75.0); NRBC % 1.2 % (0.0-2.0); PLATELET COUNT 327 K/uL (130-400); RBC 3.58 Mil/uL (4.40-5.90); RED CELL DISTRIBUTION WIDTH 16.5 % (11.5-14.5)
[2017-11-25 06:17] LABS: WHITE BLOOD COUNT 52.8 K/uL (4.8-10.8)
[2017-11-25 06:46] LABS: ALB/GLOB RATIO 1.1 (1.0-2.1); ALBUMIN 2.4 g/dL (3.5-5.0); CALCIUM 8.4 mg/dl (8.6-10.4)
[2017-11-25] MEDS: Acetaminophen 650mg/20.3ml solution UD PO PRN (08:01)
[2017-11-25] MEDS: metroNIDAZOLE IV 250mg/50 ml 250 MG/50 ML BAG IVPB SCH (08:01)
[2017-11-25 08:03] VITALS: TEMP 102
--- NOTE | 2017-11-25 08:21 | RAD ---
Date of service: 11/25/2017 HISTORY: follow up COMPARISON: 11/23/2017. FINDINGS: Endotracheal tube terminates 2.0 cm proximal to the ace. The nasogastric tube terminates in the stomach. The left IJV line terminates in the SVC. LUNGS: The lungs are clear. PLEURA: No significant pleural effusion identified, no pneumothorax apparent. CARDIOVASCULAR: Normal. OSSEOUS STRUCTURES: No significant abnormalities. VISUALIZED UPPER ABDOMEN: Normal. OTHER FINDINGS: Extensive bilateral soft tissue emphysema along the lateral chest dee and in the neck. IMPRESSION: No active pulmonary disease. Stable position of support line and tubes. No change in extensive bilateral soft tissue emphysema
[2017-11-25 09:04] LABS: ANISOCYTOSIS SLIGHT; BANDS 3 % (0-2); LARGE PLATELETS PRESENT; LYMPHOCYTE 5 % (20-40); MONOCYTE 5 % (0-10); NEUTROPHIL 87 % (50-75); NUCLEATED RED BLOOD CELL 1 % (0-0); PLATELET ESTIMATE NORMAL (NORMAL); TOTAL CELLS COUNTED 100; TOXIC GRANULATION PRESENT
[2017-11-25 09:05] LABS: BURR CELLS SLIGHT; HYPOCHROMIC SLIGHT; POIKILOCYTOSIS SLIGHT; POLYCHROMIC SLIGHT
[2017-11-25 09:32] VITALS: BP 87/43; PULSE 102; RESP 22
--- NOTE | 2017-11-25 09:49 | CP.PCM.PN ---
Subjective - Date & Time of Evaluation Date of Evaluation: 11/25/17 Time of Evaluation: 09:47 - Subjective Subjective: pt is seen and examined by me, pt is on vent, fio2 100 %, hypotensive not responding deep pain Objective - Vital Signs/Intake and Output Vital Signs (last 24 hours): Temp Pulse Resp BP Pulse Ox 102 F H 102 H 22 87/43 L 100 11/25/17 08:01 11/25/17 09:00 11/25/17 09:00 11/25/17 08:53 11/25/17 09:00 Intake and Output: 11/25/17 11/25/17 06:59 18:59 Intake Total 2442.5 787.5 Output Total 30 0 Balance 2412.5 787.5 - Medications Medications: Current Medications Acetaminophen (Tylenol 650mg/20.3ml Solution Ud) 650 mg PO Q4 PRN PRN Reason: fever Last Admin: 11/25/17 08:01 Dose: 650 mg Albuterol/Ipratropium (Duoneb 3 Mg/0.5 Mg (3 Ml) Ud) 3 ml INH RQ6 [facility]INE Last Admin: 11/25/17 08:15 Dose: Not Given Heparin Sodium (Porcine) (Heparin) 5,000 units SC Q8 [facility]INE Last Admin: 11/25/17 05:15 Dose: 5,000 units Hydrocortisone Sodium Succinate (Solu-Cortef) 100 mg IV Q8H [facility] Last Admin: 11/25/17 01:51 Dose: 100 mg Hydromorphone HCl (Dilaudid) 0.5 mg IVP Q4H PRN PRN Reason: Pain, severe (8-10) Sodium Chloride (Sodium Chloride 0.9%) 1,000 mls @ 100 mls/hr IV .Q10H [facility] Last Admin: 11/25/17 01:57 Dose: 100 mls/hr Ciprofloxacin (Cipro 400mg/200ml Dsw) 400 mg in 200 mls @ 133 mls/hr IVPB Q24H [facility]; Protocol Last Admin: 11/24/17 13:00 Dose: 133 mls/hr Cefepime HCl (Maxipime Iv 1 Gm Premix) 1 gm in 50 mls @ 100 mls/hr IVPB Q12H [facility]; Protocol Last Admin: 11/25/17 01:51 Dose: 100 mls/hr Metronidazole (Flagyl) 250 mg in 50 mls @ 100 mls/hr IVPB Q8H [facility]; Protocol Stop: 11/28/17 16:01 Last Admin: 11/25/17 08:01 Dose: 100 mls/hr Dopamine HCl/Dextrose (Dopamine 400mg/250ml D5w) 400 mg in 250 mls @ 42.865 mls/hr IV .Q5H50M PRN; Protocol PRN Reason: TITRATE PER MD ORDER Last Admin: 11/25/17 08:27 Dose: 20 mcg/kg/min, 47.627 mls/hr Montelukast Sodium (Singulair) 10 mg PO HS [facility] Last Admin: 11/24/17 21:03 Dose: 10 mg Tamsulosin HCl (Flomax) 0.4 mg PO DAILY [facility] Last Admin: 11/24/17 09:47 Dose: 0.4 mg - Labs Labs: 11/25/17 06:08 11/25/17 06:08 PT 12.5 SECONDS (9.7-12.2) H 11/23/17 10:33 INR 1.1 11/23/17 10:33 APTT 24 SECONDS (21-34) 11/23/17 10:33 - Head Exam Head Exam: ATRAUMATIC, NORMOCEPHALIC - Eye Exam Pupil Exam: Fixed Additional comments: no corneal reflexes - Neck Exam Additional comments: swelling + , sub cutaneous emphysema+ - Respiratory Exam Additional comments: on vent, b/l bs+ - Cardiovascular Exam Cardiovascular Exam: Tachycardia, REGULAR RHYTHM, +S1, +S2 - GI/Abdominal Exam GI & Abdominal Exam: Distended Additional comments: hypoactive bs - Rectal Exam Rectal Exam: Deferred - Neurological Exam Additional comments: not responding to deep pain, - Skin Skin Exam: Normal Color, Warm Assessment and Plan - Assessment and Plan (Free Text) Assessment: 82 yo HM with pmh /o hiv+ ve, copd, IPF, primary pul. htn, oa, djd, ascites, s/p left TKR , ascites, with increased bun/cr, 1. Renal failure, most likely BERNARDO, c/w pre renal azotemia 2. Ascites 3. SBP 4. HIV+ 5. Dehydration 6. Sepsis 7/ s/p MANNEQUIN MOUNTER and code 8. r/o anoxic encephalopathy 9. Hyperkalemia 10. met. acidosis 11. severe subcutaneous emphysema c/w vent support as per ID treta hyperkalemia with iv nahco3, d50, insulin over all prognosis extremely is poor. HD at this this time is futile d/w ICU attending
--- NOTE | 2017-11-25 10:07 | CP.PCM.PN ---
Subjective - Date & Time of Evaluation Date of Evaluation: 11/25/17 Time of Evaluation: 10:07 - Subjective Subjective: Progress note dictated #[id number] Discharge summary dictated #[id number] Objective - Vital Signs/Intake and Output Vital Signs (last 24 hours): Temp Pulse Resp BP Pulse Ox 102 F H 102 H 22 87/43 L 100 11/25/17 08:01 11/25/17 09:00 11/25/17 09:00 11/25/17 08:53 11/25/17 09:00 Intake and Output: 11/25/17 11/25/17 06:59 18:59 Intake Total 2442.5 787.5 Output Total 30 0 Balance 2412.5 787.5 - Medications Medications: Current Medications Acetaminophen (Tylenol 650mg/20.3ml Solution Ud) 650 mg PO Q4 PRN PRN Reason: fever Last Admin: 11/25/17 08:01 Dose: 650 mg Albuterol/Ipratropium (Duoneb 3 Mg/0.5 Mg (3 Ml) Ud) 3 ml INH RQ6 [facility] Last Admin: 11/25/17 08:15 Dose: Not Given Heparin Sodium (Porcine) (Heparin) 5,000 units SC Q8 [facility] Last Admin: 11/25/17 05:15 Dose: 5,000 units Hydrocortisone Sodium Succinate (Solu-Cortef) 100 mg IV Q8H [facility] Last Admin: 11/25/17 01:51 Dose: 100 mg Hydromorphone HCl (Dilaudid) 0.5 mg IVP Q4H PRN PRN Reason: Pain, severe (8-10) Sodium Chloride (Sodium Chloride 0.9%) 1,000 mls @ 100 mls/hr IV .Q10H [facility] Last Admin: 11/25/17 01:57 Dose: 100 mls/hr Ciprofloxacin (Cipro 400mg/200ml Dsw) 400 mg in 200 mls @ 133 mls/hr IVPB Q24H [facility]; Protocol Last Admin: 11/24/17 13:00 Dose: 133 mls/hr Cefepime HCl (Maxipime Iv 1 Gm Premix) 1 gm in 50 mls @ 100 mls/hr IVPB Q12H [facility]; Protocol Last Admin: 11/25/17 01:51 Dose: 100 mls/hr Metronidazole (Flagyl) 250 mg in 50 mls @ 100 mls/hr IVPB Q8H [facility]; Protocol Stop: 11/28/17 16:01 Last Admin: 11/25/17 08:01 Dose: 100 mls/hr Dopamine HCl/Dextrose (Dopamine 400mg/250ml D5w) 400 mg in 250 mls @ 42.865 mls/hr IV .Q5H50M PRN; Protocol PRN Reason: TITRATE PER MD ORDER Last Admin: 11/25/17 08:27 Dose: 20 mcg/kg/min, 47.627 mls/hr Montelukast Sodium (Singulair) 10 mg PO HS [facility] Last Admin: 11/24/17 21:03 Dose: 10 mg Tamsulosin HCl (Flomax) 0.4 mg PO DAILY [facility] Last Admin: 11/24/17 09:47 Dose: 0.4 mg - Labs Labs: 11/25/17 06:08 11/25/17 06:08 PT 12.5 SECONDS (9.7-12.2) H 11/23/17 10:33 INR 1.1 11/23/17 10:33 APTT 24 SECONDS (21-34) 11/23/17 10:33
--- NOTE | 2017-11-25 11:10 | CP.CCUPN ---
Addendum entered and electronically signed by Cipriano Fields DO 11/25/17 12:09: Pt at 12pm noon. Listed call worker person Mario Moreno was notified over telephone. Original Note: <Cipriano Fields - Last Filed: 11/25/17 11:10> CCU Subjective - Physician Review Subjective (Free Text): Pt seen and examined at bedside. unresponsive, absent corneal reflex. pneumomediastinum seen on exam CCU Objective - Vital Signs / Intake & Output Vital Signs (Last 4 hours): Vital Signs Temp Pulse Resp BP Pulse Ox 11/25/17 09:00 102 H 22 100 11/25/17 08:53 102 H 22 87/43 L 98 11/25/17 08:27 93/40 L 11/25/17 08:01 102 F H 11/25/17 08:00 102.1 F H 106 H 21 99 11/25/17 07:53 109 H 21 93/40 L 100 Intake and Output (Last 8hrs): Intake & Output 11/24/17 11/25/17 11/25/17 22:59 06:59 14:59 Intake Total 1036.1 1880.0 787.5 Output Total 50 10 0 Balance 986.1 1870.0 787.5 Intake: IV 500 250 Intake, IV Amount 976.1 1220.0 507.5 LEFT PROX. Y 50 Left Medial Port 367.5 157.5 Subclavian Left Proximal Port 800 800 300 Subclavian Left Subclavian 176.1 52.5 Tube Feeding 60 160 30 Output: Urine 50 10 0 Urethral (Dhaliwal) 50 10 0 Other: # Bowel Movements 0 0 - Medications Active Medications: Active Medications Generic Name Dose Route Start Last Admin Trade Name Freq PRN Reason Stop Dose Admin Acetaminophen 650 mg 11/24/17 20:46 11/25/17 08:01 Tylenol 650mg/20.3ml Solution Ud PO 650 mg Q4 PRN Administration fever Albuterol/Ipratropium 3 ml 11/19/17 20:00 11/25/17 08:15 Duoneb 3 Mg/0.5 Mg (3 Ml) Ud INH Not Given RQ6 MAXINE Heparin Sodium (Porcine) 5,000 units 11/20/17 14:00 11/25/17 05:15 Heparin SC 5,000 units Q8 MAXINE Administration Hydrocortisone Sodium Succinate 100 mg 11/24/17 10:15 11/25/17 01:51 Solu-Cortef IV 100 mg Q8H MAXINE Administration Hydromorphone HCl 0.5 mg 11/24/17 14:10 Dilaudid IVP Q4H PRN Pain, severe (8-10) Sodium Chloride 1,000 mls @ 100 mls/hr 11/23/17 10:30 11/25/17 01:57 Sodium Chloride 0.9% IV 100 mls/hr .Q10H MAXINE Administration Ciprofloxacin 400 mg in 200 mls @ 133 mls/hr 11/24/17 12:00 11/24/17 13:00 Cipro 400mg/200ml Dsw IVPB 133 mls/hr Q24H MAXINE Administration Protocol Cefepime HCl 1 gm in 50 mls @ 100 mls/hr 11/23/17 14:30 11/25/17 01:51 Maxipime Iv 1 Gm Premix IVPB 100 mls/hr Q12H MAXINE Administration Protocol Metronidazole 250 mg in 50 mls @ 100 mls/hr 11/23/17 16:00 11/25/17 08:01 Flagyl IVPB 11/28/17 16:01 100 mls/hr Q8H MAXINE Administration Protocol Dopamine HCl/Dextrose 400 mg in 250 mls @ 42.865 mls/hr 11/24/17 00:14 11/25/17 08:27 Dopamine 400mg/250ml D5w IV 20 mcg/kg/min .Q5H50M PRN 47.627 mls/hr TITRATE PER MD ORDER Administration Protocol 18 MCG/KG/MIN Montelukast Sodium 10 mg 11/20/17 10:00 11/24/17 21:03 Singulair PO 10 mg HS MAXINE Administration Tamsulosin HCl 0.4 mg 11/20/17 10:00 11/24/17 09:47 Flomax PO 0.4 mg DAILY MAXINE Administration - Patient Studies Lab Studies: Microbiology Studies 11/19/17 14:30 Blood Culture - Final Blood NO GROWTH AFTER 5 DAYS Gram Stain - Final TEST NOT PERFORMED 11/19/17 14:30 Blood Culture - Final Blood NO GROWTH AFTER 5 DAYS Gram Stain - Final TEST NOT PERFORMED 11/21/17 12:54 Gram Stain - Final Body Fluid - Abdominal Body Fluid Culture - Preliminary NO GROWTH AFTER 3 DAYS 11/22/17 21:43 Urine Culture - Final Urine,Catheterized No Growth (<1,000 CFU/ML) Lab Studies 11/25/17 11/25/17 11/25/17 Range/Units 06:08 06:08 05:32 WBC 52.8 H* (4.8-10.8) K/uL RBC 3.58 L (4.40-5.90) Mil/uL Hgb 10.9 L (12.0-18.0) g/dL Hct 34.8 L (35.0-51.0) % MCV 97.2 H (80.0-94.0) fL MCH 30.5 (27.0-31.0) pg MCHC 31.4 L (33.0-37.0) g/dL RDW 16.5 H (11.5-14.5) % Plt Count 327 (130-400) K/uL MPV 8.5 (7.2-11.7) fL Neut % (Auto) 89.4 H (50.0-75.0) % Lymph % (Auto) 3.9 L (20.0-40.0) % [place] % (Auto) 5.1 (0.0-10.0) % Eos % (Auto) 0.4 (0.0-4.0) % Baso % (Auto) 1.2 (0.0-2.0) % Neut # (Auto) 47.2 H (1.8-7.0) K/uL Lymph # (Auto) 2.1 (1.0-4.3) K/uL [place] # (Auto) 2.7 H (0.0-0.8) K/uL Eos # (Auto) 0.2 (0.0-0.7) K/uL Baso # (Auto) 0.6 H (0.0-0.2) K/uL Neutrophils % (Manual) 87 H (50-75) % Band Neutrophils % 3 H (0-2) % Lymphocytes % (Manual) 5 L (20-40) % Monocytes % (Manual) 5 (0-10) % Nucleated RBC % 1 H (0-0) % Toxic Granulation Present Platelet Estimate Normal (NORMAL) Large Platelets Present Polychromasia Slight Hypochromasia (manual) Slight Poikilocytosis (manual Slight Anisocytosis (manual) Slight [place] Cells Slight Factor V Puncture Site pCO2 (35-45) mm/Hg pO2 (80-100) mm/Hg HCO3 (21-28) mmol/L ABG pH (7.35-7.45) ABG Total CO2 (22-28) mmol/L ABG O2 Saturation (95-98) % ABG Base Excess (-2.0-3.0) mmol/L ABG Hemoglobin (11.7-17.4) g/dL ABG Carboxyhemoglobin (0.5-1.5) % POC ABG HHb (Measured) (0.0-5.0) % ABG Methemoglobin (0.0-3.0) % Channing Test A-a O2 Difference mm/Hg Respiratory Index Hgb O2 Saturation (95.0-98.0) % Vent Mode Mechanical Rate FiO2 % Tidal Volume PEEP Crit Value Called To Crit Value Called By Crit Value Read Back Blood Gas Notified Time Sodium 135 (132-148) mmol/L Potassium 6.3 H* D (3.6-5.2) mmol/L Chloride 108 H (98-107) mmol/L Carbon Dioxide 13 L (22-30) mmol/L Anion Gap 21 H (10-20) BUN 77 H (9-20) mg/dL Creatinine 4.2 H (0.8-1.5) mg/dL Est GFR ( Amer) 16 Est GFR (Non-Af Amer) 14 POC Glucose (mg/dL) 102 (65-110) mg/dL Random Glucose 108 (75-110) mg/dL Calcium 8.4 L (8.6-10.4) mg/dl Phosphorus 7.4 H (2.5-4.5) mg/dL Magnesium 2.5 H (1.6-2.3) mg/dL Total Bilirubin 0.6 (0.2-1.3) mg/dL AST 168 H D (17-59) U/L ALT 55 (21-72) U/L Alkaline Phosphatase 194 H (38-126) U/L Total Protein 4.7 L (6.3-8.3) g/dL Albumin 2.4 L (3.5-5.0) g/dL Globulin 2.3 (2.2-3.9) gm/dL Albumin/Globulin Ratio 1.1 (1.0-2.1) Random Vancomycin ug/mL 11/25/17 11/25/17 11/24/17 Range/Units 04:25 01:47 17:59 WBC (4.8-10.8) K/uL RBC (4.40-5.90) Mil/uL Hgb (12.0-18.0) g/dL Hct (35.0-51.0) % MCV (80.0-94.0) fL MCH (27.0-31.0) pg MCHC (33.0-37.0) g/dL RDW (11.5-14.5) % Plt Count (130-400) K/uL MPV (7.2-11.7) fL Neut % (Auto) (50.0-75.0) % Lymph % (Auto) (20.0-40.0) % [place] % (Auto) (0.0-10.0) % Eos % (Auto) (0.0-4.0) % Baso % (Auto) (0.0-2.0) % Neut # (Auto) (1.8-7.0) K/uL Lymph # (Auto) (1.0-4.3) K/uL [place] # (Auto) (0.0-0.8) K/uL Eos # (Auto) (0.0-0.7) K/uL Baso # (Auto) (0.0-0.2) K/uL Neutrophils % (Manual) (50-75) % Band Neutrophils % (0-2) % Lymphocytes % (Manual) (20-40) % Monocytes % (Manual) (0-10) % Nucleated RBC % (0-0) % Toxic Granulation Platelet Estimate (NORMAL) Large Platelets Polychromasia Hypochromasia (manual) Poikilocytosis (manual Anisocytosis (manual) [place]mo Cells Factor V Puncture Site Rb pCO2 48 H (35-45) mm/Hg pO2 70 L (80-100) mm/Hg HCO3 13.4 L (21-28) mmol/L ABG pH 7.09 L* (7.35-7.45) ABG Total CO2 16.1 L (22-28) mmol/L ABG O2 Saturation 93.0 L (95-98) % ABG Base Excess -14.6 L (-2.0-3.0) mmol/L ABG Hemoglobin 9.8 L (11.7-17.4) g/dL ABG Carboxyhemoglobin 1.8 H (0.5-1.5) % POC ABG HHb (Measured) 6.8 H (0.0-5.0) % ABG Methemoglobin 1.1 (0.0-3.0) % Channing Test Na A-a O2 Difference 583.0 mm/Hg Respiratory Index 8.3 Hgb O2 Saturation 90.2 L (95.0-98.0) % Vent Mode Prvc Mechanical Rate 20 FiO2 100.0 % Tidal Volume 450 PEEP 0 Crit Value Called To Eloy avilez /rn Crit Value Called By Jake menezes/rt Crit Value Read Back Y Blood Gas Notified Time 435 Sodium (132-148) mmol/L Potassium (3.6-5.2) mmol/L Chloride (98-107) mmol/L Carbon Dioxide (22-30) mmol/L Anion Gap (10-20) BUN (9-20) mg/dL Creatinine (0.8-1.5) mg/dL Est GFR ( Amer) Est GFR (Non-Af Amer) POC Glucose (mg/dL) 141 H 124 H (65-110) mg/dL Random Glucose (75-110) mg/dL Calcium (8.6-10.4) mg/dl Phosphorus (2.5-4.5) mg/dL Magnesium (1.6-2.3) mg/dL Total Bilirubin (0.2-1.3) mg/dL AST (17-59) U/L ALT (21-72) U/L Alkaline Phosphatase (38-126) U/L Total Protein (6.3-8.3) g/dL Albumin (3.5-5.0) g/dL Globulin (2.2-3.9) gm/dL Albumin/Globulin Ratio (1.0-2.1) Random Vancomycin ug/mL 11/24/17 11/19/17 Range/Units 16:27 21:46 WBC (4.8-10.8) K/uL RBC (4.40-5.90) Mil/uL Hgb (12.0-18.0) g/dL Hct (35.0-51.0) % MCV (80.0-94.0) fL MCH (27.0-31.0) pg MCHC (33.0-37.0) g/dL RDW (11.5-14.5) % Plt Count (130-400) K/uL MPV (7.2-11.7) fL Neut % (Auto) (50.0-75.0) % Lymph % (Auto) (20.0-40.0) % [place] % (Auto) (0.0-10.0) % Eos % (Auto) (0.0-4.0) % Baso % (Auto) (0.0-2.0) % Neut # (Auto) (1.8-7.0) K/uL Lymph # (Auto) (1.0-4.3) K/uL [place] # (Auto) (0.0-0.8) K/uL Eos # (Auto) (0.0-0.7) K/uL Baso # (Auto) (0.0-0.2) K/uL Neutrophils % (Manual) (50-75) % Band Neutrophils % (0-2) % Lymphocytes % (Manual) (20-40) % Monocytes % (Manual) (0-10) % Nucleated RBC % (0-0) % Toxic Granulation Platelet Estimate (NORMAL) Large Platelets Polychromasia Hypochromasia (manual) Poikilocytosis (manual Anisocytosis (manual) [place] Cells Factor V see note Puncture Site pCO2 (35-45) mm/Hg pO2 (80-100) mm/Hg HCO3 (21-28) mmol/L ABG pH (7.35-7.45) ABG Total CO2 (22-28) mmol/L ABG O2 Saturation (95-98) % ABG Base Excess (-2.0-3.0) mmol/L ABG Hemoglobin (11.7-17.4) g/dL ABG Carboxyhemoglobin (0.5-1.5) % POC ABG HHb (Measured) (0.0-5.0) % ABG Methemoglobin (0.0-3.0) % Channing Test A-a O2 Difference mm/Hg Respiratory Index Hgb O2 Saturation (95.0-98.0) % Vent Mode Mechanical Rate FiO2 % Tidal Volume PEEP Crit Value Called To Crit Value Called By Crit Value Read Back Blood Gas Notified Time Sodium (132-148) mmol/L Potassium (3.6-5.2) mmol/L Chloride (98-107) mmol/L Carbon Dioxide (22-30) mmol/L Anion Gap (10-20) BUN (9-20) mg/dL Creatinine (0.8-1.5) mg/dL Est GFR ( Amer) Est GFR (Non-Af Amer) POC Glucose (mg/dL) (65-110) mg/dL Random Glucose (75-110) mg/dL Calcium (8.6-10.4) mg/dl Phosphorus (2.5-4.5) mg/dL Magnesium (1.6-2.3) mg/dL Total Bilirubin (0.2-1.3) mg/dL AST (17-59) U/L ALT (21-72) U/L Alkaline Phosphatase (38-126) U/L Total Protein (6.3-8.3) g/dL Albumin (3.5-5.0) g/dL Globulin (2.2-3.9) gm/dL Albumin/Globulin Ratio (1.0-2.1) Random Vancomycin 7.7 ug/mL Laboratory Results - last 24 hr 11/19/17 11/24/17 11/24/17 21:46 16:27 17:59 WBC RBC Hgb Hct MCV MCH MCHC RDW Plt Count MPV Neut % (Auto) Lymph % (Auto) [place] % (Auto) Eos % (Auto) Baso % (Auto) Neut # (Auto) Lymph # (Auto) [place] # (Auto) Eos # (Auto) Baso # (Auto) Neutrophils % (Manual) Band Neutrophils % Lymphocytes % (Manual) Monocytes % (Manual) Nucleated RBC % Toxic Granulation Platelet Estimate Large Platelets Polychromasia Hypochromasia (manual) Poikilocytosis (manual Anisocytosis (manual) [place] Cells Factor V see note Puncture Site pCO2 pO2 HCO3 ABG pH ABG Total CO2 ABG O2 Saturation ABG Base Excess ABG Hemoglobin ABG Carboxyhemoglobin POC ABG HHb (Measured) ABG Methemoglobin Channing Test A-a O2 Difference Respiratory Index Hgb O2 Saturation Vent Mode Mechanical Rate FiO2 Tidal Volume PEEP Crit Value Called To Crit Value Called By Crit Value Read Back Blood Gas Notified Time Sodium Potassium Chloride Carbon Dioxide Anion Gap BUN Creatinine Est GFR ( Amer) Est GFR (Non-Af Amer) POC Glucose (mg/dL) 124 H Random Glucose Calcium Phosphorus Magnesium Total Bilirubin AST ALT Alkaline Phosphatase Total Protein Albumin Globulin Albumin/Globulin Ratio Random Vancomycin 7.7 11/25/17 11/25/17 11/25/17 01:47 04:25 05:32 WBC RBC Hgb Hct MCV MCH MCHC RDW Plt Count MPV Neut % (Auto) Lymph % (Auto) [place] % (Auto) Eos % (Auto) Baso % (Auto) Neut # (Auto) Lymph # (Auto) [place] # (Auto) Eos # (Auto) Baso # (Auto) Neutrophils % (Manual) Band Neutrophils % Lymphocytes % (Manual) Monocytes % (Manual) Nucleated RBC % Toxic Granulation Platelet Estimate Large Platelets Polychromasia Hypochromasia (manual) Poikilocytosis (manual Anisocytosis (manual) [place] Cells Factor V Puncture Site Rb pCO2 48 H pO2 70 L HCO3 13.4 L ABG pH 7.09 L* ABG Total CO2 16.1 L ABG O2 Saturation 93.0 L ABG Base Excess -14.6 L ABG Hemoglobin 9.8 L ABG Carboxyhemoglobin 1.8 H POC ABG HHb (Measured) 6.8 H ABG Methemoglobin 1.1 Channing Test Na A-a O2 Difference 583.0 Respiratory Index 8.3 Hgb O2 Saturation 90.2 L Vent Mode Prvc Mechanical Rate 20 FiO2 100.0 Tidal Volume 450 PEEP 0 Crit Value Called To Eloy avilez /rn Crit Value Called By Jake menezes/rt Crit Value Read Back Y Blood Gas Notified Time 435 Sodium Potassium Chloride Carbon Dioxide Anion Gap BUN Creatinine Est GFR ( Amer) Est GFR (Non-Af Amer) POC Glucose (mg/dL) 141 H 102 Random Glucose Calcium Phosphorus Magnesium Total Bilirubin AST ALT Alkaline Phosphatase Total Protein Albumin Globulin Albumin/Globulin Ratio Random Vancomycin 11/25/17 11/25/17 06:08 06:08 WBC 52.8 H* RBC 3.58 L Hgb 10.9 L Hct 34.8 L MCV 97.2 H MCH 30.5 MCHC 31.4 L RDW 16.5 H Plt Count 327 MPV 8.5 Neut % (Auto) 89.4 H Lymph % (Auto) 3.9 L [place] % (Auto) 5.1 Eos % (Auto) 0.4 Baso % (Auto) 1.2 Neut # (Auto) 47.2 H Lymph # (Auto) 2.1 [place] # (Auto) 2.7 H Eos # (Auto) 0.2 Baso # (Auto) 0.6 H Neutrophils % (Manual) 87 H Band Neutrophils % 3 H Lymphocytes % (Manual) 5 L Monocytes % (Manual) 5 Nucleated RBC % 1 H Toxic Granulation Present Platelet Estimate Normal Large Platelets Present Polychromasia Slight Hypochromasia (manual) Slight Poikilocytosis (manual Slight Anisocytosis (manual) Slight [place] Cells Slight Factor V Puncture Site pCO2 pO2 HCO3 ABG pH ABG Total CO2 ABG O2 Saturation ABG Base Excess ABG Hemoglobin ABG Carboxyhemoglobin POC ABG HHb (Measured) ABG Methemoglobin Channing Test A-a O2 Difference Respiratory Index Hgb O2 Saturation Vent Mode Mechanical Rate FiO2 Tidal Volume PEEP Crit Value Called To Crit Value Called By Crit Value Read Back Blood Gas Notified Time Sodium 135 Potassium 6.3 H* D Chloride 108 H Carbon Dioxide 13 L Anion Gap 21 H BUN 77 H Creatinine 4.2 H Est GFR ( Amer) 16 Est GFR (Non-Af Amer) 14 POC Glucose (mg/dL) Random Glucose 108 Calcium 8.4 L Phosphorus 7.4 H Magnesium 2.5 H Total Bilirubin 0.6 AST 168 H D ALT 55 Alkaline Phosphatase 194 H Total Protein 4.7 L Albumin 2.4 L Globulin 2.3 Albumin/Globulin Ratio 1.1 Random Vancomycin Fingerstick Blood Sugar Results: 141 Critical Care Progress Note - Nutrition Nutrition: Nutrition Category Date Time Status NPO Diet [DIET] Diets 11/24/17 Breakfast Active Assessment/Plan - Assessment and Plan (Free Text) Assessment: 82yo m s/p code blue admitted to icu. Plan: NEURO Anoxic Brain Injury -Pt unresponsive - absent corneal reflex -monitor mental status -s/p code blue total time : PULM Anoxic Respiratory Failure -Pt on vent, intubated fiO2 100 TV PEEP RR -CXR: sub q emphysema, central line placed Pneumo Mediastinum -seen on CXR -chest tube removed -CT r/o major pneumothorax Possible Aspiration pna Respiratory alkalosis -adjusting vent settings CARDIOVASC Cardiac arrest -code blue - on Dppamine drip -maintain BP and HR ID Pneumonia -abx -severe leukocytosis -f/u cultures HEME monitor H&H GI Ascitis -s/p thoracentesis 11/22 RENAL BPH with history on nodules -monitor renal function -repleat and monitor elecs prognosis guarded <Stef Begum - Last Filed: 11/25/17 18:45> CCU Subjective - Physician Review Critical Care Time Spent (in minutes): 30 CCU Objective - Vital Signs / Intake & Output Intake and Output (Last 8hrs): Intake & Output 11/25/17 11/25/17 11/25/17 06:59 14:59 22:59 Intake Total 1880.0 1092.5 Output Total 10 0 Balance 1870.0 1092.5 Intake: IV 500 250 Intake, IV Amount 1220.0 812.5 LEFT PROX. Y 50 Left Medial Port 367.5 262.5 Subclavian Left Proximal Port 800 500 Subclavian Left Subclavian 52.5 Tube Feeding 160 30 Output: Urine 10 0 Urethral (Dhaliwal) 10 0 Other: # Bowel Movements 0 - Patient Studies Lab Studies: Microbiology Studies 11/21/17 12:54 Gram Stain - Final Body Fluid - Abdominal Body Fluid Culture - Final No growth. Lab Studies 11/25/17 11/25/17 11/25/17 Range/Units 06:08 06:08 05:32 WBC 52.8 H* (4.8-10.8) K/uL RBC 3.58 L (4.40-5.90) Mil/uL Hgb 10.9 L (12.0-18.0) g/dL Hct 34.8 L (35.0-51.0) % MCV 97.2 H (80.0-94.0) fL MCH 30.5 (27.0-31.0) pg MCHC 31.4 L (33.0-37.0) g/dL RDW 16.5 H (11.5-14.5) % Plt Count 327 (130-400) K/uL MPV 8.5 (7.2-11.7) fL Neut % (Auto) 89.4 H (50.0-75.0) % Lymph % (Auto) 3.9 L (20.0-40.0) % [place] % (Auto) 5.1 (0.0-10.0) % Eos % (Auto) 0.4 (0.0-4.0) % Baso % (Auto) 1.2 (0.0-2.0) % Neut # (Auto) 47.2 H (1.8-7.0) K/uL Lymph # (Auto) 2.1 (1.0-4.3) K/uL [place] # (Auto) 2.7 H (0.0-0.8) K/uL Eos # (Auto) 0.2 (0.0-0.7) K/uL Baso # (Auto) 0.6 H (0.0-0.2) K/uL Neutrophils % (Manual) 87 H (50-75) % Band Neutrophils % 3 H (0-2) % Lymphocytes % (Manual) 5 L (20-40) % Monocytes % (Manual) 5 (0-10) % Nucleated RBC % 1 H (0-0) % Toxic Granulation Present Platelet Estimate Normal (NORMAL) Large Platelets Present Polychromasia Slight Hypochromasia (manual) Slight Poikilocytosis (manual Slight Anisocytosis (manual) Slight [place] Cells Slight Puncture Site pCO2 (35-45) mm/Hg pO2 (80-100) mm/Hg HCO3 (21-28) mmol/L ABG pH (7.35-7.45) ABG Total CO2 (22-28) mmol/L ABG O2 Saturation (95-98) % ABG Base Excess (-2.0-3.0) mmol/L ABG Hemoglobin (11.7-17.4) g/dL ABG Carboxyhemoglobin (0.5-1.5) % POC ABG HHb (Measured) (0.0-5.0) % ABG Methemoglobin (0.0-3.0) % Channing Test A-a O2 Difference mm/Hg Respiratory Index Hgb O2 Saturation (95.0-98.0) % Vent Mode Mechanical Rate FiO2 % Tidal Volume PEEP Crit Value Called To Crit Value Called By Crit Value Read Back Blood Gas Notified Time Sodium 135 (132-148) mmol/L Potassium 6.3 H* D (3.6-5.2) mmol/L Chloride 108 H (98-107) mmol/L Carbon Dioxide 13 L (22-30) mmol/L Anion Gap 21 H (10-20) BUN 77 H (9-20) mg/dL Creatinine 4.2 H (0.8-1.5) mg/dL Est GFR ( Amer) 16 Est GFR (Non-Af Amer) 14 POC Glucose (mg/dL) 102 (65-110) mg/dL Random Glucose 108 (75-110) mg/dL Calcium 8.4 L (8.6-10.4) mg/dl Phosphorus 7.4 H (2.5-4.5) mg/dL Magnesium 2.5 H (1.6-2.3) mg/dL Total Bilirubin 0.6 (0.2-1.3) mg/dL AST 168 H D (17-59) U/L ALT 55 (21-72) U/L Alkaline Phosphatase 194 H (38-126) U/L Total Protein 4.7 L (6.3-8.3) g/dL Albumin 2.4 L (3.5-5.0) g/dL Globulin 2.3 (2.2-3.9) gm/dL Albumin/Globulin Ratio 1.1 (1.0-2.1) 11/25/17 11/25/17 Range/Units 04:25 01:47 WBC (4.8-10.8) K/uL RBC (4.40-5.90) Mil/uL Hgb (12.0-18.0) g/dL Hct (35.0-51.0) % MCV (80.0-94.0) fL MCH (27.0-31.0) pg MCHC (33.0-37.0) g/dL RDW (11.5-14.5) % Plt Count (130-400) K/uL MPV (7.2-11.7) fL Neut % (Auto) (50.0-75.0) % Lymph % (Auto) (20.0-40.0) % [place] % (Auto) (0.0-10.0) % Eos % (Auto) (0.0-4.0) % Baso % (Auto) (0.0-2.0) % Neut # (Auto) (1.8-7.0) K/uL Lymph # (Auto) (1.0-4.3) K/uL [place] # (Auto) (0.0-0.8) K/uL Eos # (Auto) (0.0-0.7) K/uL Baso # (Auto) (0.0-0.2) K/uL Neutrophils % (Manual) (50-75) % Band Neutrophils % (0-2) % Lymphocytes % (Manual) (20-40) % Monocytes % (Manual) (0-10) % Nucleated RBC % (0-0) % Toxic Granulation Platelet Estimate (NORMAL) Large Platelets Polychromasia Hypochromasia (manual) Poikilocytosis (manual Anisocytosis (manual) [place]mo Cells Puncture Site Rb pCO2 48 H (35-45) mm/Hg pO2 70 L (80-100) mm/Hg HCO3 13.4 L (21-28) mmol/L ABG pH 7.09 L* (7.35-7.45) ABG Total CO2 16.1 L (22-28) mmol/L ABG O2 Saturation 93.0 L (95-98) % ABG Base Excess -14.6 L (-2.0-3.0) mmol/L ABG Hemoglobin 9.8 L (11.7-17.4) g/dL ABG Carboxyhemoglobin 1.8 H (0.5-1.5) % POC ABG HHb (Measured) 6.8 H (0.0-5.0) % ABG Methemoglobin 1.1 (0.0-3.0) % Channing Test Na A-a O2 Difference 583.0 mm/Hg Respiratory Index 8.3 Hgb O2 Saturation 90.2 L (95.0-98.0) % Vent Mode Prvc Mechanical Rate 20 FiO2 100.0 % Tidal Volume 450 PEEP 0 Crit Value Called To Eloy avilez /rn Crit Value Called By Jake menezes/rt Crit Value Read Back Y Blood Gas Notified Time 435 Sodium (132-148) mmol/L Potassium (3.6-5.2) mmol/L Chloride (98-107) mmol/L Carbon Dioxide (22-30) mmol/L Anion Gap (10-20) BUN (9-20) mg/dL Creatinine (0.8-1.5) mg/dL Est GFR ( Amer) Est GFR (Non-Af Amer) POC Glucose (mg/dL) 141 H (65-110) mg/dL Random Glucose (75-110) mg/dL Calcium (8.6-10.4) mg/dl Phosphorus (2.5-4.5) mg/dL Magnesium (1.6-2.3) mg/dL Total Bilirubin (0.2-1.3) mg/dL AST (17-59) U/L ALT (21-72) U/L Alkaline Phosphatase (38-126) U/L Total Protein (6.3-8.3) g/dL Albumin (3.5-5.0) g/dL Globulin (2.2-3.9) gm/dL Albumin/Globulin Ratio (1.0-2.1) Laboratory Results - last 24 hr 11/25/17 11/25/17 11/25/17 01:47 04:25 05:32 WBC RBC Hgb Hct MCV MCH MCHC RDW Plt Count MPV Neut % (Auto) Lymph % (Auto) [place] % (Auto) Eos % (Auto) Baso % (Auto) Neut # (Auto) Lymph # (Auto) [place] # (Auto) Eos # (Auto) Baso # (Auto) Neutrophils % (Manual) Band Neutrophils % Lymphocytes % (Manual) Monocytes % (Manual) Nucleated RBC % Toxic Granulation Platelet Estimate Large Platelets Polychromasia Hypochromasia (manual) Poikilocytosis (manual Anisocytosis (manual) [place] Cells Puncture Site Rb pCO2 48 H pO2 70 L HCO3 13.4 L ABG pH 7.09 L* ABG Total CO2 16.1 L ABG O2 Saturation 93.0 L ABG Base Excess -14.6 L ABG Hemoglobin 9.8 L ABG Carboxyhemoglobin 1.8 H POC ABG HHb (Measured) 6.8 H ABG Methemoglobin 1.1 [place] Test Na A-a O2 Difference 583.0 Respiratory Index 8.3 Hgb O2 Saturation 90.2 L Vent Mode Prvc Mechanical Rate 20 FiO2 100.0 Tidal Volume 450 PEEP 0 Crit Value Called To Eloy avilez /rn Crit Value Called By Jake menezes/rt Crit Value Read Back Y Blood Gas Notified Time 435 Sodium Potassium Chloride Carbon Dioxide Anion Gap BUN Creatinine Est GFR ( Amer) Est GFR (Non-Af Amer) POC Glucose (mg/dL) 141 H 102 Random Glucose Calcium Phosphorus Magnesium Total Bilirubin AST ALT Alkaline Phosphatase Total Protein Albumin Globulin Albumin/Globulin Ratio 11/25/17 11/25/17 06:08 06:08 WBC 52.8 H* RBC 3.58 L Hgb 10.9 L Hct 34.8 L MCV 97.2 H MCH 30.5 MCHC 31.4 L RDW 16.5 H Plt Count 327 MPV 8.5 Neut % (Auto) 89.4 H Lymph % (Auto) 3.9 L [place] % (Auto) 5.1 Eos % (Auto) 0.4 Baso % (Auto) 1.2 Neut # (Auto) 47.2 H Lymph # (Auto) 2.1 [place] # (Auto) 2.7 H Eos # (Auto) 0.2 Baso # (Auto) 0.6 H Neutrophils % (Manual) 87 H Band Neutrophils % 3 H Lymphocytes % (Manual) 5 L Monocytes % (Manual) 5 Nucleated RBC % 1 H Toxic Granulation Present Platelet Estimate Normal Large Platelets Present Polychromasia Slight Hypochromasia (manual) Slight Poikilocytosis (manual Slight Anisocytosis (manual) Slight [place] Cells Slight Puncture Site pCO2 pO2 HCO3 ABG pH ABG Total CO2 ABG O2 Saturation ABG Base Excess ABG Hemoglobin ABG Carboxyhemoglobin POC ABG HHb (Measured) ABG Methemoglobin [place] Test A-a O2 Difference Respiratory Index Hgb O2 Saturation Vent Mode Mechanical Rate FiO2 [place]idal Volume PEEP Crit Value Called To Crit Value Called By Crit Value Read Back Blood Gas Notified Time Sodium 135 Potassium 6.3 H* D Chloride 108 H Carbon Dioxide 13 L Anion Gap 21 H BUN 77 H Creatinine 4.2 H Est GFR ( Amer) 16 Est GFR (Non-Af Amer) 14 POC Glucose (mg/dL) Random Glucose 108 Calcium 8.4 L Phosphorus 7.4 H Magnesium 2.5 H Total Bilirubin 0.6 AST 168 H D ALT 55 Alkaline Phosphatase 194 H Total Protein 4.7 L Albumin 2.4 L Globulin 2.3 Albumin/Globulin Ratio 1.1 Critical Care Progress Note - Nutrition Nutrition: Nutrition Category Date Time Status NPO Diet [DIET] Diets 11/24/17 Breakfast Active Assessment/Plan (1) Cardiac arrest Status: Acute (2) Subcutaneous emphysema Status: Acute (3) Pulmonary hypertension Status: Chronic (4) Asthma Status: Acute (5) Ascites Status: Acute (6) Bronchiectasis Status: Acute Attending/Attestation - Attestation I have personally seen and examined this patient.: Yes I have fully participated in the care of the patient.: Yes I have reviewed all pertinent clinical information: Yes Notes (Text): 11/25/17 18:44 Patient seen and examined Assessment and plan as per resident note
--- NOTE | 2017-11-25 11:48 | CP.PCM.CON ---
History of Present Illness - History of Present Illness History of Present Illness: Palliative consult requested by Doctor Taylor for goals of care discussion; poor prognosis Patient is a 82 yo male admitted with SOB and cough associated with congestion X 2 days. Patient reported feeling tightness in his chest which worsened on the day of admission what made him go to ED. VQ scan was highly suspicious for PE. heparin startted. CT cgest significant for liver cirrhosis, ascites and infiltartes. Maxipime, Cipro and Flagyl on board. On 11/23/17 LEAD NURSE called for BP 67/57 and respiratory distress. Bolus of 1000 cc NS given, patient intubated and admitted to ICU. Bp after bolus 93/62. Patient's condition continued to worsen despite all appropriate measures. WBC bhanu up to 52.8, BUN 77, Electrologist 4.2. No family members are coming forward to discuss this poor prognosis. Palliative care called to assist in goals of care planing. PMH: HIV, asthma, pneumonia,prostate CA, pulmonary fibrosis Soc. Hx: , lives in [place], no close contacts with her, has one daughter and has not seen her for > 20 years, brother Omar lives in and no close contacts with him neither Fam. Hx: unknown Review of Systems - Review of Systems All systems: reviewed and no additional remarkable complaints except Review of Systems: ROS unobtainable from patient due to intubation and unresponsivness. ROS obtained from nursing. Per nursing patient has been unresponsive and with out gag or corneal reflexes Past Patient History - Past Medical History & Family History Past Medical History?: Yes - Past Social History Smoking Status: Current Some Days Smoker - CARDIAC Hx Cardia Arrhythmia: No Hx Hypertension: Yes (Denies) Hx Pacemaker: No - PULMONARY Hx Asthma: Yes Hx Emphysema: Yes Hx Pneumonia: Yes - NEUROLOGICAL Hx Neurological Disorder: No - HEENT Hx HEENT Problems: No Hx Cataracts: Yes - RENAL Hx Chronic Kidney Disease: No - ENDOCRINE/METABOLIC Hx Endocrine Disorders: No - HEMATOLOGICAL/ONCOLOGICAL Hx AIDS: Yes Hx Human Immunodeficiency Virus (HIV): Yes - INTEGUMENTARY Hx Dermatological Problems: No - MUSCULOSKELETAL/RHEUMATOLOGICAL Hx Arthritis: Yes Hx Osteoarthritis: Yes - GASTROINTESTINAL Hx Gastrointestinal Disorders: Yes Hx Bowel Surgery: Yes (Hernia) Hx Colostomy: Yes Hx Constipation: Yes Hx Gastritis: Yes Hx Liver Failure: No - GENITOURINARY/GYNECOLOGICAL Hx Genitourinary Disorders: Yes Hx Prostate Problems: Yes - PSYCHIATRIC Hx Substance Use: No - SURGICAL HISTORY Hx Surgeries: Yes Hx Cataract Extraction: Yes Hx Eye Surgery: Yes Hx Herniorrhaphy: Yes Hx Orthopedic Surgery: Yes (Left knee) Other/Comment: UNKNOWN ABDOMINAL SURGERY - ANESTHESIA Hx Anesthesia: Yes Hx Anesthesia Reactions: No Hx Malignant Hyperthermia: No Meds Allergies/Adverse Reactions: Allergies Allergy/AdvReac Type Severity Reaction Status Date / Time No Known Allergies Allergy Verified 11/19/17 08:24 - Medications Medications: Current Medications Acetaminophen (Tylenol 650mg/20.3ml Solution Ud) 650 mg PO Q4 PRN PRN Reason: fever Last Admin: 11/25/17 08:01 Dose: 650 mg Albuterol/Ipratropium (Duoneb 3 Mg/0.5 Mg (3 Ml) Ud) 3 ml INH RQ6 MAXINE Last Admin: 11/25/17 08:15 Dose: Not Given Heparin Sodium (Porcine) (Heparin) 5,000 units SC Q8 MAXINE Last Admin: 11/25/17 05:15 Dose: 5,000 units Hydrocortisone Sodium Succinate (Solu-Cortef) 100 mg IV Q8H MAXINE Last Admin: 11/25/17 01:51 Dose: 100 mg Hydromorphone HCl (Dilaudid) 0.5 mg IVP Q4H PRN PRN Reason: Pain, severe (8-10) Sodium Chloride (Sodium Chloride 0.9%) 1,000 mls @ 100 mls/hr IV .Q10H MAXINE Last Admin: 11/25/17 01:57 Dose: 100 mls/hr Ciprofloxacin (Cipro 400mg/200ml Dsw) 400 mg in 200 mls @ 133 mls/hr IVPB Q24H MAXINE; Protocol Last Admin: 11/24/17 13:00 Dose: 133 mls/hr Cefepime HCl (Maxipime Iv 1 Gm Premix) 1 gm in 50 mls @ 100 mls/hr IVPB Q12H MAXINE; Protocol Last Admin: 11/25/17 01:51 Dose: 100 mls/hr Metronidazole (Flagyl) 250 mg in 50 mls @ 100 mls/hr IVPB Q8H MAXINE; Protocol Stop: 11/28/17 16:01 Last Admin: 11/25/17 08:01 Dose: 100 mls/hr Dopamine HCl/Dextrose (Dopamine 400mg/250ml D5w) 400 mg in 250 mls @ 42.865 mls/hr IV .Q5H50M PRN; Protocol PRN Reason: TITRATE PER MD ORDER Last Admin: 11/25/17 08:27 Dose: 20 mcg/kg/min, 47.627 mls/hr Montelukast Sodium (Singulair) 10 mg PO HS [facility] Last Admin: 11/24/17 21:03 Dose: 10 mg Tamsulosin HCl (Flomax) 0.4 mg PO DAILY [facility] Last Admin: 11/24/17 09:47 Dose: 0.4 mg Physical Exam - Constitutional Appears: In Acute Distress, Chronically Ill - Head Exam Head Exam: ATRAUMATIC, NORMAL INSPECTION, NORMOCEPHALIC - Eye Exam Pupil Exam: Fixed Additional comments: no corneal reflex - ENT Exam Additional comments: intubated - Neck Exam Neck exam: Positive for: Normal Inspection - Respiratory Exam Additional comments: on MV support - Cardiovascular Exam Cardiovascular Exam: Tachycardia - GI/Abdominal Exam GI & Abdominal Exam: Hypoactive Bowel Sounds - Rectal Exam Rectal Exam: Deferred - Exam Additional comments: Dhaliwal cath - Extremities Exam Extremities exam: Positive for: pedal edema - Back Exam Back exam: NORMAL INSPECTION - Neurological Exam Neurological exam: Motor Sensory Deficit - Psychiatric Exam Psychiatric exam: Flat Affect - Skin Skin Exam: Pallor Results - Vital Signs Recent Vital Signs: Last Vital Signs Temp 102 F H 11/25/17 08:01 Pulse 102 H 11/25/17 09:00 Resp 22 11/25/17 09:00 BP 87/43 L 11/25/17 08:53 Pulse Ox 100 11/25/17 09:00 - Labs Result Diagrams: 11/25/17 06:08 11/25/17 06:08 Labs: Laboratory Results - last 24 hr 11/24/17 11/24/17 11/25/17 16:27 17:59 01:47 WBC RBC Hgb Hct MCV MCH MCHC RDW Plt Count MPV Neut % (Auto) Lymph % (Auto) Wood % (Auto) Eos % (Auto) Baso % (Auto) Neut # (Auto) Lymph # (Auto) Wood # (Auto) Eos # (Auto) Baso # (Auto) Neutrophils % (Manual) Band Neutrophils % Lymphocytes % (Manual) Monocytes % (Manual) Nucleated RBC % Toxic Granulation Platelet Estimate Large Platelets Polychromasia Hypochromasia (manual) Poikilocytosis (manual Anisocytosis (manual) Elmo Cells Puncture Site pCO2 pO2 HCO3 ABG pH ABG Total CO2 ABG O2 Saturation ABG Base Excess ABG Hemoglobin ABG Carboxyhemoglobin POC ABG HHb (Measured) ABG Methemoglobin Channing Test A-a O2 Difference Respiratory Index Hgb O2 Saturation Vent Mode Mechanical Rate FiO2 Tidal Volume PEEP Crit Value Called To Crit Value Called By Crit Value Read Back Blood Gas Notified Time Sodium Potassium Chloride Carbon Dioxide Anion Gap BUN Creatinine Est GFR ( Amer) Est GFR (Non-Af Amer) POC Glucose (mg/dL) 124 H 141 H Random Glucose Calcium Phosphorus Magnesium Total Bilirubin AST ALT Alkaline Phosphatase Total Protein Albumin Globulin Albumin/Globulin Ratio Random Vancomycin 7.7 11/25/17 11/25/17 11/25/17 04:25 05:32 06:08 WBC 52.8 H* RBC 3.58 L Hgb 10.9 L Hct 34.8 L MCV 97.2 H MCH 30.5 MCHC 31.4 L RDW 16.5 H Plt Count 327 MPV 8.5 Neut % (Auto) 89.4 H Lymph % (Auto) 3.9 L Wood % (Auto) 5.1 Eos % (Auto) 0.4 Baso % (Auto) 1.2 Neut # (Auto) 47.2 H Lymph # (Auto) 2.1 Wood # (Auto) 2.7 H Eos # (Auto) 0.2 Baso # (Auto) 0.6 H Neutrophils % (Manual) 87 H Band Neutrophils % 3 H Lymphocytes % (Manual) 5 L Monocytes % (Manual) 5 Nucleated RBC % 1 H Toxic Granulation Present Platelet Estimate Normal Large Platelets Present Polychromasia Slight Hypochromasia (manual) Slight Poikilocytosis (manual Slight Anisocytosis (manual) Slight [place] Cells Slight Puncture Site Rb pCO2 48 H pO2 70 L HCO3 13.4 L ABG pH 7.09 L* ABG Total CO2 16.1 L ABG O2 Saturation 93.0 L ABG Base Excess -14.6 L ABG Hemoglobin 9.8 L ABG Carboxyhemoglobin 1.8 H POC ABG HHb (Measured) 6.8 H ABG Methemoglobin 1.1 Channing Test Na A-a O2 Difference 583.0 Respiratory Index 8.3 Hgb O2 Saturation 90.2 L Vent Mode Prvc Mechanical Rate 20 FiO2 100.0 Tidal Volume 450 PEEP 0 Crit Value Called To Eloy avilez /rn Crit Value Called By Jake menezes/rt Crit Value Read Back Y Blood Gas Notified Time 435 Sodium Potassium Chloride Carbon Dioxide Anion Gap BUN Creatinine Est GFR ( Amer) Est GFR (Non-Af Amer) POC Glucose (mg/dL) 102 Random Glucose Calcium Phosphorus Magnesium Total Bilirubin AST ALT Alkaline Phosphatase Total Protein Albumin Globulin Albumin/Globulin Ratio Random Vancomycin 11/25/17 06:08 WBC RBC Hgb Hct MCV MCH MCHC RDW Plt Count MPV Neut % (Auto) Lymph % (Auto) Wood % (Auto) Eos % (Auto) Baso % (Auto) Neut # (Auto) Lymph # (Auto) Wood # (Auto) Eos # (Auto) Baso # (Auto) Neutrophils % (Manual) Band Neutrophils % Lymphocytes % (Manual) Monocytes % (Manual) Nucleated RBC % Toxic Granulation Platelet Estimate Large Platelets Polychromasia Hypochromasia (manual) Poikilocytosis (manual Anisocytosis (manual) Elmo Cells Puncture Site pCO2 pO2 HCO3 ABG pH ABG Total CO2 ABG O2 Saturation ABG Base Excess ABG Hemoglobin ABG Carboxyhemoglobin POC ABG HHb (Measured) ABG Methemoglobin Channing Test A-a O2 Difference Respiratory Index Hgb O2 Saturation Vent Mode Mechanical Rate FiO2 Tidal Volume PEEP Crit Value Called To Crit Value Called By Crit Value Read Back Blood Gas Notified Time Sodium 135 Potassium 6.3 H* D Chloride 108 H Carbon Dioxide 13 L Anion Gap 21 H BUN 77 H Creatinine 4.2 H Est GFR ( Amer) 16 Est GFR (Non-Af Amer) 14 POC Glucose (mg/dL) Random Glucose 108 Calcium 8.4 L Phosphorus 7.4 H Magnesium 2.5 H Total Bilirubin 0.6 AST 168 H D ALT 55 Alkaline Phosphatase 194 H Total Protein 4.7 L Albumin 2.4 L Globulin 2.3 Albumin/Globulin Ratio 1.1 Random Vancomycin Assessment & Plan - Assessment and Plan (Free Text) Assessment: Palliative consult Full Code, there is no Advance directive on chart, PPS 10% I reviewed medical records, all diagnostic studies, examined patient in the bed. Patient is intubated, on MV support, unresponsive to stimuli. Gag and corneal reflexes are absent. Skin is cool to touch and clammy. Hb 10.2. Breath sound diminished. Patient is not breathing on his own. HR 102.Abdomen softly distended. Hypoactive bowel sounds. Dhaliwal at bed side ,urine output 75 cc today. Patient is not moving his extremities. BP 93/40, HR 102, afebrile WBC 52.8, Hb 10.2, BUN 77, Electrologist 4.2 I contacted both contact persons , Antonia and Mario asking for further information about patient;s family members. vdihyay both stated that they knew patient had a brother Omar Jimenez who lives in but could not find his phone number. per them, patient had no contact with the brother for > 10 years. They also claimed that patient had not seen his daughter for over 20 years. Doctor Ashli came in and we discussed poor prognosis. We agreed to involve Bioethics Commettee in goals of care and Code status discussion. I suggested patient should be at least made DNR as his condition obviously was terminal. This was discussed in morning rounds . It was confirmed that there was absolutely no way to contact patient's brother at this critical time for patient. I called Account Development Specialist Sue making her aware of Bioethics consult Impression * Chronically ill male in acute respiratory distress * Multi organ failure * GCS 3 * There is no family support * Patient unable to discuss his own goals of care due to terminal condition * Patient's wishes for the end of life care are not known. * Patient's is being unneccassary prolonged by the artificial measures Suggestion * Would make this patient DNR with agreement of 2 MDs, in absence of family memb ers to discuss Code status * Would remove life support and allow natural to this terminally ill patient, as meaningful recovery is not expected.
--- NOTE | 2017-11-25 11:56 | CP.PCM.PN ---
Subjective - Date & Time of Evaluation Date of Evaluation: 11/25/17 Time of Evaluation: 11:53 - Subjective Subjective: Events noted- rib fractures, pneumomediastinum, renal shutdown, multi-organ failure Patient appears terminal Objective - Vital Signs/Intake and Output Vital Signs (last 24 hours): Temp Pulse Resp BP Pulse Ox 102 F H 102 H 22 87/43 L 100 11/25/17 08:01 11/25/17 09:00 11/25/17 09:00 11/25/17 08:53 11/25/17 09:00 Intake and Output: 11/25/17 11/25/17 06:59 18:59 Intake Total 2442.5 1092.5 Output Total 30 0 Balance 2412.5 1092.5 - Medications Medications: Current Medications Acetaminophen (Tylenol 650mg/20.3ml Solution Ud) 650 mg PO Q4 PRN PRN Reason: fever Last Admin: 11/25/17 08:01 Dose: 650 mg Albuterol/Ipratropium (Duoneb 3 Mg/0.5 Mg (3 Ml) Ud) 3 ml INH RQ6 MAXINE Last Admin: 11/25/17 08:15 Dose: Not Given Heparin Sodium (Porcine) (Heparin) 5,000 units SC Q8 MAXINE Last Admin: 11/25/17 05:15 Dose: 5,000 units Hydrocortisone Sodium Succinate (Solu-Cortef) 100 mg IV Q8H MAXINE Last Admin: 11/25/17 01:51 Dose: 100 mg Hydromorphone HCl (Dilaudid) 0.5 mg IVP Q4H PRN PRN Reason: Pain, severe (8-10) Sodium Chloride (Sodium Chloride 0.9%) 1,000 mls @ 100 mls/hr IV .Q10H MAXINE Last Admin: 11/25/17 01:57 Dose: 100 mls/hr Ciprofloxacin (Cipro 400mg/200ml Dsw) 400 mg in 200 mls @ 133 mls/hr IVPB Q24H MAXINE; Protocol Last Admin: 11/24/17 13:00 Dose: 133 mls/hr Cefepime HCl (Maxipime Iv 1 Gm Premix) 1 gm in 50 mls @ 100 mls/hr IVPB Q12H MAXINE; Protocol Last Admin: 11/25/17 01:51 Dose: 100 mls/hr Metronidazole (Flagyl) 250 mg in 50 mls @ 100 mls/hr IVPB Q8H MAXINE; Protocol Stop: 11/28/17 16:01 Last Admin: 11/25/17 08:01 Dose: 100 mls/hr Dopamine HCl/Dextrose (Dopamine 400mg/250ml D5w) 400 mg in 250 mls @ 42.865 mls/hr IV .Q5H50M PRN; Protocol PRN Reason: TITRATE PER MD ORDER Last Admin: 11/25/17 08:27 Dose: 20 mcg/kg/min, 47.627 mls/hr Montelukast Sodium (Singulair) 10 mg PO HS [facility] Last Admin: 11/24/17 21:03 Dose: 10 mg Tamsulosin HCl (Flomax) 0.4 mg PO DAILY [facility] Last Admin: 11/24/17 09:47 Dose: 0.4 mg - Labs Labs: 11/25/17 06:08 11/25/17 06:08 PT 12.5 SECONDS (9.7-12.2) H 11/23/17 10:33 INR 1.1 11/23/17 10:33 APTT 24 SECONDS (21-34) 11/23/17 10:33 - Constitutional Appears: Chronically Ill - Head Exam Head Exam: NORMOCEPHALIC Assessment and Plan (1) Ascites Status: Acute (2) Dyspnea Status: Acute (3) Pulmonary embolism Status: Acute (4) HIV (human immunodeficiency virus infection) Status: Chronic (5) Choledocholithiasis Status: Acute - Assessment and Plan (Free Text) Assessment: Patient appears terminally ill and medical intervention likely to be futile Will sign off
--- NOTE | 2017-11-25 12:17 | CP.PCM.PN ---
Subjective - Date & Time of Evaluation Date of Evaluation: 11/23/17 Time of Evaluation: 20:00 - Subjective Subjective: s/p code blue, transferred to ICU Objective - Vital Signs/Intake and Output Vital Signs (last 24 hours): Temp Pulse Resp BP Pulse Ox 102 F H 102 H 22 87/43 L 100 11/25/17 08:01 11/25/17 09:00 11/25/17 09:00 11/25/17 08:53 11/25/17 09:00 Intake and Output: 11/25/17 11/25/17 06:59 18:59 Intake Total 2442.5 1092.5 Output Total 30 0 Balance 2412.5 1092.5 - Medications Medications: Current Medications Acetaminophen (Tylenol 650mg/20.3ml Solution Ud) 650 mg PO Q4 PRN PRN Reason: fever Last Admin: 11/25/17 08:01 Dose: 650 mg Albuterol/Ipratropium (Duoneb 3 Mg/0.5 Mg (3 Ml) Ud) 3 ml INH RQ6 MAXINE Last Admin: 11/25/17 08:15 Dose: Not Given Heparin Sodium (Porcine) (Heparin) 5,000 units SC Q8 MAXINE Last Admin: 11/25/17 05:15 Dose: 5,000 units Hydrocortisone Sodium Succinate (Solu-Cortef) 100 mg IV Q8H MAXINE Last Admin: 11/25/17 01:51 Dose: 100 mg Hydromorphone HCl (Dilaudid) 0.5 mg IVP Q4H PRN PRN Reason: Pain, severe (8-10) Sodium Chloride (Sodium Chloride 0.9%) 1,000 mls @ 100 mls/hr IV .Q10H MAXINE Last Admin: 11/25/17 01:57 Dose: 100 mls/hr Cefepime HCl (Maxipime Iv 1 Gm Premix) 1 gm in 50 mls @ 100 mls/hr IVPB Q12H MAXINE; Protocol Last Admin: 11/25/17 01:51 Dose: 100 mls/hr Metronidazole (Flagyl) 250 mg in 50 mls @ 100 mls/hr IVPB Q8H MAXINE; Protocol Stop: 11/28/17 16:01 Last Admin: 11/25/17 08:01 Dose: 100 mls/hr Dopamine HCl/Dextrose (Dopamine 400mg/250ml D5w) 400 mg in 250 mls @ 42.865 mls/hr IV .Q5H50M PRN; Protocol PRN Reason: TITRATE PER MD ORDER Last Admin: 11/25/17 08:27 Dose: 20 mcg/kg/min, 47.627 mls/hr Montelukast Sodium (Singulair) 10 mg PO HS [facility] Last Admin: 11/24/17 21:03 Dose: 10 mg Tamsulosin HCl (Flomax) 0.4 mg PO DAILY [facility] Last Admin: 11/24/17 09:47 Dose: 0.4 mg - Labs Labs: 11/25/17 06:08 11/25/17 06:08 PT 12.5 SECONDS (9.7-12.2) H 11/23/17 10:33 INR 1.1 11/23/17 10:33 APTT 24 SECONDS (21-34) 11/23/17 10:33 - Head Exam Head Exam: ATRAUMATIC - Eye Exam Eye Exam: Normal appearance - ENT Exam ENT Exam: Mucous Membranes Dry - Respiratory Exam Respiratory Exam: Decreased Breath Sounds - Cardiovascular Exam Cardiovascular Exam: +S1, +S2 - GI/Abdominal Exam GI & Abdominal Exam: Normal Bowel Sounds Assessment and Plan (1) Leucocytosis Assessment & Plan: on antibiotics rule out SBP CBD stone; ERCP evaluation s/p paracentesis Status: Acute (2) Anemia Assessment & Plan: anemia of CKD and chronic disease. Status: Acute
--- NOTE | 2017-11-25 12:18 | CP.PCM.PN ---
Subjective - Date & Time of Evaluation Date of Evaluation: 11/24/17 Time of Evaluation: 20:00 - Subjective Subjective: Vented, on pressors Objective - Vital Signs/Intake and Output Vital Signs (last 24 hours): Temp Pulse Resp BP Pulse Ox 102 F H 102 H 22 87/43 L 100 11/25/17 08:01 11/25/17 09:00 11/25/17 09:00 11/25/17 08:53 11/25/17 09:00 Intake and Output: 11/25/17 11/25/17 06:59 18:59 Intake Total 2442.5 1092.5 Output Total 30 0 Balance 2412.5 1092.5 - Medications Medications: Current Medications Acetaminophen (Tylenol 650mg/20.3ml Solution Ud) 650 mg PO Q4 PRN PRN Reason: fever Last Admin: 11/25/17 08:01 Dose: 650 mg Albuterol/Ipratropium (Duoneb 3 Mg/0.5 Mg (3 Ml) Ud) 3 ml INH RQ6 MAXINE Last Admin: 11/25/17 08:15 Dose: Not Given Heparin Sodium (Porcine) (Heparin) 5,000 units SC Q8 MAXINE Last Admin: 11/25/17 05:15 Dose: 5,000 units Hydrocortisone Sodium Succinate (Solu-Cortef) 100 mg IV Q8H MAXINE Last Admin: 11/25/17 01:51 Dose: 100 mg Hydromorphone HCl (Dilaudid) 0.5 mg IVP Q4H PRN PRN Reason: Pain, severe (8-10) Sodium Chloride (Sodium Chloride 0.9%) 1,000 mls @ 100 mls/hr IV .Q10H MAXINE Last Admin: 11/25/17 01:57 Dose: 100 mls/hr Cefepime HCl (Maxipime Iv 1 Gm Premix) 1 gm in 50 mls @ 100 mls/hr IVPB Q12H MAXINE; Protocol Last Admin: 11/25/17 01:51 Dose: 100 mls/hr Metronidazole (Flagyl) 250 mg in 50 mls @ 100 mls/hr IVPB Q8H MAXINE; Protocol Stop: 11/28/17 16:01 Last Admin: 11/25/17 08:01 Dose: 100 mls/hr Dopamine HCl/Dextrose (Dopamine 400mg/250ml D5w) 400 mg in 250 mls @ 42.865 mls/hr IV .Q5H50M PRN; Protocol PRN Reason: TITRATE PER MD ORDER Last Admin: 11/25/17 08:27 Dose: 20 mcg/kg/min, 47.627 mls/hr Montelukast Sodium (Singulair) 10 mg PO HS [facility] Last Admin: 11/24/17 21:03 Dose: 10 mg Tamsulosin HCl (Flomax) 0.4 mg PO DAILY [facility] Last Admin: 11/24/17 09:47 Dose: 0.4 mg - Labs Labs: 11/25/17 06:08 11/25/17 06:08 PT 12.5 SECONDS (9.7-12.2) H 11/23/17 10:33 INR 1.1 11/23/17 10:33 APTT 24 SECONDS (21-34) 11/23/17 10:33 - Head Exam Head Exam: ATRAUMATIC - Eye Exam Eye Exam: Normal appearance - ENT Exam ENT Exam: Mucous Membranes Dry - Respiratory Exam Respiratory Exam: Decreased Breath Sounds - Cardiovascular Exam Cardiovascular Exam: +S1, +S2 - GI/Abdominal Exam GI & Abdominal Exam: Normal Bowel Sounds Assessment and Plan (1) Leucocytosis Assessment & Plan: on antibiotics rule out SBP; s/p paracentesis CBD stone; ERCP evaluation Status: Acute (2) Anemia Assessment & Plan: anemia of CKD and chronic disease. Status: Acute
--- NOTE | 2017-11-25 12:19 | CP.PCM.PN ---
Subjective - Date & Time of Evaluation Date of Evaluation: 11/25/17 Time of Evaluation: 12:00 - Subjective Subjective: Vented, multiorgan failure Objective - Vital Signs/Intake and Output Vital Signs (last 24 hours): Temp Pulse Resp BP Pulse Ox 102 F H 102 H 22 87/43 L 100 11/25/17 08:01 11/25/17 09:00 11/25/17 09:00 11/25/17 08:53 11/25/17 09:00 Intake and Output: 11/25/17 11/25/17 06:59 18:59 Intake Total 2442.5 1092.5 Output Total 30 0 Balance 2412.5 1092.5 - Medications Medications: Current Medications Acetaminophen (Tylenol 650mg/20.3ml Solution Ud) 650 mg PO Q4 PRN PRN Reason: fever Last Admin: 11/25/17 08:01 Dose: 650 mg Albuterol/Ipratropium (Duoneb 3 Mg/0.5 Mg (3 Ml) Ud) 3 ml INH RQ6 MAXINE Last Admin: 11/25/17 08:15 Dose: Not Given Heparin Sodium (Porcine) (Heparin) 5,000 units SC Q8 MAXINE Last Admin: 11/25/17 05:15 Dose: 5,000 units Hydrocortisone Sodium Succinate (Solu-Cortef) 100 mg IV Q8H [facility] Last Admin: 11/25/17 01:51 Dose: 100 mg Hydromorphone HCl (Dilaudid) 0.5 mg IVP Q4H PRN PRN Reason: Pain, severe (8-10) Sodium Chloride (Sodium Chloride 0.9%) 1,000 mls @ 100 mls/hr IV .Q10H MAXINE Last Admin: 11/25/17 01:57 Dose: 100 mls/hr Cefepime HCl (Maxipime Iv 1 Gm Premix) 1 gm in 50 mls @ 100 mls/hr IVPB Q12H [facility]; Protocol Last Admin: 11/25/17 01:51 Dose: 100 mls/hr Metronidazole (Flagyl) 250 mg in 50 mls @ 100 mls/hr IVPB Q8H MAXINE; Protocol Stop: 11/28/17 16:01 Last Admin: 11/25/17 08:01 Dose: 100 mls/hr Dopamine HCl/Dextrose (Dopamine 400mg/250ml D5w) 400 mg in 250 mls @ 42.865 mls/hr IV .Q5H50M PRN; Protocol PRN Reason: TITRATE PER MD ORDER Last Admin: 11/25/17 08:27 Dose: 20 mcg/kg/min, 47.627 mls/hr Montelukast Sodium (Singulair) 10 mg PO HS [facility] Last Admin: 11/24/17 21:03 Dose: 10 mg Tamsulosin HCl (Flomax) 0.4 mg PO DAILY [facility] Last Admin: 11/24/17 09:47 Dose: 0.4 mg - Labs Labs: 11/25/17 06:08 11/25/17 06:08 PT 12.5 SECONDS (9.7-12.2) H 11/23/17 10:33 INR 1.1 11/23/17 10:33 APTT 24 SECONDS (21-34) 11/23/17 10:33 - Head Exam Head Exam: ATRAUMATIC - Eye Exam Eye Exam: Normal appearance - ENT Exam ENT Exam: Mucous Membranes Dry - Respiratory Exam Respiratory Exam: Decreased Breath Sounds - Cardiovascular Exam Cardiovascular Exam: +S1, +S2 - GI/Abdominal Exam GI & Abdominal Exam: Normal Bowel Sounds Assessment and Plan (1) Leucocytosis Assessment & Plan: on antibiotics Status: Acute (2) Anemia Assessment & Plan: chronic disease Status: Acute
--- NOTE | 2017-11-25 12:22 | CP.PCM.PRO ---
Pronouncement of Note - Clinical Findings Physical Exam: No Response Verbal/Painful Stimuli, Absent Peripheral Puls es{Carotid & Femoral}, Absent Heart & Breath Sounds, No Pupillary Light Reflex, No Corneal Reflex, Absence of Vital Signs - Pronouncement Time Time of Pronouncement of : 12:00 Additional Comments: Pt went into asystole at 1155 code blue not called because of pt's terminal condition. pt pronounced at 1200 - Notifications Pronouncement Notifications: Family Notified (friend Mario notified over phone), Atending Notified
--- NOTE | 2017-11-25 19:02 | PN ---
DATE: 11/25/2017 SUBJECTIVE: The patient was seen and examined at bedside. The patient remains intubated, nor obtunded, unresponsive, not having any gag or pupillary reflexes, on dopamine drip with low blood pressures. PHYSICAL EXAMINATION: GENERAL: An elderly male lying in bed, unresponsive. VITAL SIGNS: Blood pressure 87/43, pulse 102, respirations 22, on 100% FiO2, temperature 102 degrees Fahrenheit. HEENT: Pupils are without any very sluggishly reacting without any corneal reflex. No icterus. No pallor. NECK: Supple. Extensive subcutaneous emphysema. LUNGS: Bilateral fair air entry. Crepitus all over the anterior chest wall. CVS: S1 and S2 present, regular. ABDOMEN: Soft. Bowel sounds present. DAIRY DEPARTMENT MANAGER: Unresponsive, intubated, not moving any extremities to deep painful stimuli. EXTREMITIES: Extensive subcutaneous emphysema present even extending into the lower extremities. MEDICATIONS: Include Tylenol, DuoNeb, Maxipime 1 g IV every 12 hours, dopamine drip at , subcu heparin 5000 units every 8 hours, hydrocortisone 100 mg IV every 8 hours, Dilaudid 0.5 mg IV push every 4 hours, Flagyl 250 mg IV every 8 hours, Singulair 10 mg p.o. at bedtime, IV fluids, normal saline at 100 mL an hour, Flomax 0.4 mg daily. LABORATORY DATA: Labs done from this morning; WBC 52.8, hemoglobin 10.9, hematocrit 34.8, platelets 327. ABG on 100% FiO2; pH 7.09, pCO2 of 48, pO2 is 70, O2 saturations 90. Sodium 135, potassium 6.3, chloride 108, bicarb 13, BUN 77, creatinine 4.2, glucose 102, calcium 8.4, phosphorus 7.4, magnesium 2.5, alkaline phosphatase 194, AST 168, ALT 55, total protein 4.7, albumin 2.4. Body fluid cultured, negative growth. Blood cultures negative so far. Chest x-ray done this morning; no active pulmonary disease. No change in extensive bilateral soft tissue emphysema. ASSESSMENT AND PLAN: An elderly male with human immunodeficiency virus positive with recent CD4 count , idiopathic pulmonary fibrosis, admitted for ascites and spontaneous bacterial peritonitis, ventilation/perfusion scan high probability for pulmonary embolism, CT angio negative for any pulmonary embolism, sepsis, status post paracentesis, status post cardiac arrest and resuscitation remaining intubated, severely acidotic, hyperkalemic, acute kidney injury with worsening renal function, abnormal liver function tests, positive anoxic encephalopathy, extensive subcutaneous emphysema, neurologically unresponsive. Keep the patient on 100% FiO2 and continue with support, continue with pressors, treat hyperkalemia and continue with current antibiotics as per Infectious Disease. Continue gastrointestinal and deep vein thrombosis prophylaxis. Discussed with the RN and Palliative Care. The patient's friends were reported as next of kin. Both were contacted and trying to reach out to the family in [facility] as per the friend. The patient's condition is critical and prognosis is guarded. We will continue with supportive care. Kimberly Haines MD
--- NOTE | 2017-12-06 09:51 | DS ---
Date of admission: 11/19/2017. Date of expiration: 11/25/2017. DIAGNOSES: Cardiopulmonary arrest, status post code, unresponsive, possible anoxic encephalopathy, vent dependent, severe acidosis, hyperkalemia, acute kidney injury, abnormal liver function tests, extensive subcutaneous emphysema, human immunodeficiency virus positive, idiopathic pulmonary fibrosis, spontaneous bacterial peritonitis, ascites, anemia, leukocytosis, cholelithiasis, and V/Q scan positive for pulmonary embolism but ruled out by negative angiogram of the chest. HISTORY OF PRESENT ILLNESS: is an 82-year-old male with past medical history of HIV, on antiretroviral therapy; COPD; osteoarthritis; primary pulmonary hypertension; idiopathic pulmonary fibrosis; history of prostate CA; nodular prostate; colonic polyp; bilateral severe osteoarthritis; degenerative joint disease of the lumbar spine; underwent total knee replacement in 09/2017, who usually follows up with Dr. Casey Castellon from [facility], came into the emergency room, brought in by EMS with complaints of cough and shortness of breath on exertion, which is progressively getting worse. Shortness of breath was worse on walking or lying flat. Denied any chest pain and also complaining of decreased urine output, decreased p.o. intake, and abdominal distention in the emergency room. The patient was found to be having abdominal distention and V/Q scan done in the ED was the high probability, and the patient was started on heparin and admitted to the hospital for further management. On the day of discharge, the patient was unresponsive, did not have any pulse. His blood pressure was not recordable. The patient went into asystole. He remained intubated, and the patient was pronounced at 12 noon as documented in the ICU attending's note. The patient's family was notified. The salesperson sewing machines on the chart was notified over the phone by the ICU team. HOSPITAL COURSE: The patient was admitted to the hospital with V/Q scan high probability, started on heparin. The patient underwent CT angio, which was negative for PE. The patient was evaluated by Pulmonary. Heparin was discontinued. He was started on nebulizer treatment for his abdominal distention. Ultrasound showed ascites. He was evaluated by GI. Also, ultrasound showed cholelithiasis and dilated CBD with elevated WBC count and anemia. The patient underwent paracentesis by Interventional Radiology. The fluid was consistent with SBP for which the patient was already started on multiple IV antibiotics and evaluated by ID. His white count was worsening and the patient's CD4 count was also low. The patient was evaluated by Dr. Hoffman for possible ERCP. The patient was evaluated by ID and Hematology. ERCP was unsuccessful in the first attempt and the patient was hypotensive during the process, given fluids. The patient was brought back to the telemetry, later SUSTAINABILITY PROJECT MANAGER was called for hypotension with fluid boluses. The patient's blood pressure improved and his white count was worsening. His renal function got worse. The patient was evaluated by Renal. His medications were adjusted. The patient was also seen by Urology for decreased urine output. Liliane gross was called on 11/23/2017. The patient's blood pressure improved with the fluids later in the afternoon. Code blue was called and after it was achieved, the patient was transferred to ICU, developed extensive subcutaneous emphysema. Multiple attempts failed. The patient was unresponsive with possible anoxic encephalopathy, and the patient was evaluated by Palliative Care. consult requested. Despite the pressors, his white count was worsening and developed hyperkalemia, severe acidosis, and the patient was found hypotensive, and the patient went into asystole on 11/25/2017 at 11:55 and the patient was pronounced at 12:00. Palliative Care nurse and hospital social worker tried to contact the patient's family, spoke to the salesperson sewing machines given in the chart, who are only friends as per them, and they were trying to get in touch with patient's brother and the patient was pronounced at 12 noon. Kimberly Haines MD
== END 2017-11-25 12:00 | DRG 974 ==
LOC: C.ER 08:11 → C.9E 17:29 → C.5S 18:37 → C.9I 11-23 17:34
PROVIDERS: ADMIT Internal Medicine; ATTEND Internal Medicine
PROC: 0W9G3ZZ Drainage of Peritoneal Cavity, Percutaneous Approach (ICD-10-PCS; principal; 2017-11-21)
PROC: 0BH17EZ Insertion of Endotracheal Airway into Trachea, Via Natural or Artificial Opening (ICD-10-PCS; 2017-11-23)
PROC: 5A1945Z Respiratory Ventilation, 24-96 Consecutive Hours (ICD-10-PCS; 2017-11-23)
DX: A41.50 Gram-negative sepsis, unspecified (principal); K65.2 Spontaneous bacterial peritonitis; B20 Human immunodeficiency virus [HIV] disease; I26.99 Other pulmonary embolism without acute cor pulmonale; R18.8 Other ascites; N39.0 Urinary tract infection, site not specified; D68.9 Coagulation defect, unspecified; I27.0 Primary pulmonary hypertension; N17.9 Acute kidney failure, unspecified; E87.2 Acidosis; G93.1 Anoxic brain damage, not elsewhere classified; E86.0 Dehydration; E87.5 Hyperkalemia; I12.9 Hypertensive chronic kidney disease with stage 1 through stage 4 chronic kidney disease, or unspecified chronic kidney disease; D63.1 Anemia in chronic kidney disease; N18.9 Chronic kidney disease, unspecified; K21.9 Gastro-esophageal reflux disease without esophagitis; Z87.891 Personal history of nicotine dependence; Z96.652 Presence of left artificial knee joint; Z93.3 Colostomy status; Z66 Do not resuscitate; Z51.5 Encounter for palliative care; Z85.46 Personal history of malignant neoplasm of prostate; K59.00 Constipation, unspecified; N32.0 Bladder-neck obstruction; J84.112 Idiopathic pulmonary fibrosis; I46.9 Cardiac arrest, cause unspecified; R09.2 Respiratory arrest; Z53.09 Procedure and treatment not carried out because of other contraindication